=== PATIENT | male | born 1945 | race Caucasian/White ===

== ENCOUNTER 2019-11-17 10:25 | Emergency (ER) | payer MEDICARE, BC ==
--- NOTE | 2019-11-17 10:40 | EDM.PDOC ---
ED HPI GENERAL MEDICAL PROBLEM - General Chief Complaint: Neuro Symptoms/Deficits Stated Complaint: stroke Time Seen by Provider: 11/17/19 10:33 Source of Information: Reports: Patient, Family History Limitations: Reports: No Limitations - History of Present Illness INITIAL COMMENTS - FREE TEXT/NARRATIVE: Patient to the emergency department by [facility] where he was at [employer] and approximately 1015 developed left-sided facial drooping and weakness and slurred speech. Onset: Sudden Onset Date: 11/17/19 Onset Time: 10:15 Duration: Minutes: Location: Reports: Face Severity: Severe Improves with: Reports: None Worsens with: Reports: None Associated Symptoms: Reports: Weakness (left sided weakness). Denies: Confusion , Chest Pain, Cough, Fever/Chills, Headaches, Nausea/Vomiting, Seizure, Shortness of Breath Treatments FLIGHT DYNAMICIST: Reports: Other (see below) (none) - Related Data Allergies Allergy/AdvReac Type Severity Reaction Status Date / Time indomethacin [From Indocin] AdvReac Intermediate Lightheaded Verified 11/17/19 10:42 ness indomethacin sodium AdvReac Intermediate Lightheaded Verified 11/17/19 10:42 [From Indocin] ness dye Allergy Intermediate Itching Uncoded 11/17/19 10:42 Home Meds: Home Meds Simvastatin 10 mg PO BEDTIME 02/16/15 [History] Aspirin [Children's Aspirin] 81 mg PO DAILY 08/21/15 [History] Cholecalciferol (Vitamin D3) [Vitamin D3] 5,000 unit PO DAILY 08/21/15 [History] Levothyroxine Sodium [Tirosint] 112 mcg PO DAILY 08/21/15 [History] Magnesium 250 mg PO DAILY 08/21/15 [History] [place]-3 Fatty Acids [Fish Oil] 1 cap PO DAILY 08/21/15 [History] Omeprazole [Prilosec] 1 cap PO DAILY PRN 08/21/15 [History] Ubidecarenone [Coq-10] 100 mg PO DAILY 08/21/15 [History] Amitriptyline [Elavil] 25 mg PO QAM 12/28/17 [History] Ascorbic Acid [Vitamin C] 1,000 mg PO DAILY 12/28/17 [History] Clopidogrel [Plavix] 75 mg PO DAILY 12/28/17 [History] Finasteride 5 mg PO DAILY 12/28/17 [History] Lisinopril 10 mg PO BID 12/28/17 [History] Amitriptyline [Elavil] 37.5 mg PO BEDTIME 11/17/19 [History] Folic Acid 0.4 mg PO DAILY 11/17/19 [History] Meloxicam 15 mg PO DAILY 11/17/19 [History] Past Medical History HEENT History: Reports: Cataract Cardiovascular History: Reports: Hypertension Other Cardiovascular History: stent placement 10 years ago Genitourinary History: Reports: BPH Neurological History: Reports: CVA Other Neuro History: October 11, 2015. Endocrine/Metabolic History: Reports: Hypothyroidism - Past Surgical History GI Surgical History: Reports: Hernia, Inguinal Musculoskeletal Surgical History: Reports: Carpal Tunnel, Knee Replacement Social & Family History - Family History Family Medical History: Noncontributory - Living Situation & Occupation Living situation: Reports: , with Spouse Occupation: Employed ED ROS GENERAL - Review of Systems Review Of Systems: See Below Constitutional: Reports: No Symptoms, Weakness (left sided). Denies: Fever HEENT: Reports: No Symptoms. Denies: Ear Pain, Nose Pain, Throat Pain Respiratory: Reports: No Symptoms. Denies: Shortness of Breath, Cough Cardiovascular: Reports: No Symptoms. Denies: Chest Pain, Lightheadedness, Palpitations Endocrine: Denies: Fatigue, High Glucose, Low Glucose GI/Abdominal: Reports: No Symptoms. Denies: Abdominal Pain, Nausea, Vomiting : Reports: No Symptoms Musculoskeletal: Reports: No Symptoms. Denies: Neck Pain, Back Pain Skin: Reports: No Symptoms. Denies: Bruising, Rash, Erythema Neurological: Reports: Weakness (Left-sided), Change in Speech (Dysarthria), Gait Disturbance. Denies: Confusion, Dizziness, Headache, Numbness, Pre- Existing Deficit, Seizure, Syncope, Tingling Psychiatric: Reports: No Symptoms ED EXAM, NEURO - Physical Exam Exam: See Below Exam Limited By: No Limitations General Appearance: Alert, WD/WN Eye Exam: Bilateral Eye: EOMI, PERRL Ears: Normal External Exam, Normal Canal, Hearing Grossly Normal, Normal TMs Nose: Normal Inspection, Normal Mucosa Throat/Mouth: Normal Inspection, Normal Lips, Normal Gums, Normal Oropharynx, Normal Voice, No Airway Compromise Head Exam: Atraumatic, Normocephalic Neck: Normal Inspection, Supple, Non-Tender, Full Range of Motion Respiratory/Chest: No Respiratory Distress, Lungs Clear, Normal Breath Sounds, Chest Non-Tender Cardiovascular: Normal Peripheral Pulses, Regular Rate, Rhythm, No Murmur GI/Abdominal: Soft, Non-Tender Neurological: Alert, Normal Mood/Affect, Normal Gait (Stood up from the wheelchair to the bed with help without problems), No Motor/Sensory Deficits ( No change in sensation however the left side is somewhat slightly weaker than the right), Oriented x 3, Other (NIH stroke scale of 3, 1 point for left-sided facial drooping and 2 points for dysarthria) Back Exam: Normal Inspection, Full Range of Motion Extremities: Normal Inspection, Normal Range of Motion, Non-Tender, No Pedal Edema, Normal Capillary Refill, Other (no yin drift, no leg drift, normal finger to nose able to stick tongue out midline and side to side) Psychiatric: Normal Affect, Normal Mood Skin Exam: Warm, Dry, Intact, Normal Color, No Rash. No: Ecchymosis, Erythema EKG INTERPRETATION EKG Date: 11/17/19 Time: 10:42 Rhythm: NSR [place]: LAD-Left [place] Deviation P-Wave: Present QRS: RBBB ST-T: Normal QT: Normal EKG Interpretation Comments: Twelve-lead EKG shows an underlying sinus bradycardia with a ventricular rate of 59 there is a first-degree AV block with a left axis deviation and poor R wave progression there is a right bundle branch block the patient does have some nonspecific ST changes however there does not appear to be any acute injury or ischemia, there is left ventricular hypertrophy by index of Osvaldo Course - Vital Signs Text/Narrative:: 1054 patient has been evaluated in the emergency department, CT of the brain is been completed and I do not see any obvious large bleeding in the brain. The images has been sent to [facility] for immediate interpretation. I have discussed with the patient and the patient's the need to transfer and they suggest transfer to [facility]. I did call and speak to Migdalia in the transfer center she advises she will get the neurologist on the phone [phone] I have spoken to Dr. Lee the neurologist and I discussed with him the patient's chief complaint physical exam as well as all the symptoms and timeline of symptoms as well as the vital signs and blood work. He did advise that he suggest that this is a small vessel stroke and that knowing all the patient's past medical history which he has reviewed where he is managed by the neuro department including his last appointment where he seen the nurse practitioner approximately 1 month ago. I did go through the patient's list of medicine which does include Plavix and he has taken at this morning. The neurologist is advised that he is a candidate for TPA and he wanted me to go through all the risk and benefits with the family to determine whether or not this is something that they would want. He does advise that the potential disabilities will need to be taken into account as well as the risk and benefits. 1130 I have spoken to the patient and the patient's in great detail and advised them of the benefits being that the TPA would dissolve the potential clot in the brain and potentially resolve all of his current symptoms but there is no guarantee that everything would go back to complete normalcy. The risk was advised which includes massive bleeding in the brain which can cause permanent disabilities and even among a few. Also advised them that this medicine dissolves clots anywhere and if he would have any clot anywhere that this would be dissolved and he can potentially bleed from that area as well. I did advise them that this medicine has been given to patients before and there are patients that have been very well and there also has been patients that has bled into the brain and have . There was a concern on getting the medicine from the patient's as another family member had received and did have bleeding. However the patient himself advised that he wants the medicine he advised that he does not want to have the facial drooping and problems as well as he does not want to not be able to speak normally. This was a discussion between him and his and they both elected to accept the risk and benefits and receive the TPA, and discussing transport with a neurologist he advised that ground transport would be appropriate. EMS has been called and arrangements are being made for them to come to pick him up. 1151 I spoke with the trimming operator at and advised him the discussions with the neurologist and I did go through advising him that the patient does take Plavix and this was taken today as well as the discussion and the risk and benefits of giving this patient TPA and that the patient agrees to excepting all the risk and benefits and wants to have the medicine and actually discussed the actual doses of the medicine. The patient weighs 102 kg and the maximum dose is 90 mg in total and with the patient's weight the IV push would come out to 9.24 mg and the drip would be 83.2 mg and this patient will actually receive 9 mg IV push and 81 mg for the total of and maximum 90 mg/kg. At this point the patient's daughter was on the phone and I did discuss all of this with the patient's daughter and she had the same concerns as the with the family member receiving this prior however it was also discussed that this is the patient's wishes and they all have agreed to accept all the risk and benefits was given this medicine and this medicine is being administered see the nursing notes for detail. Risk and benefits of transport is been explained to the patient and the patient' s family which includes the benefit of evaluation and treatment by a neurologist and trimming operator that is not available at [facility] and the risks are worsening condition, motor vehicle accident and . Last Recorded V/S: Last Vital Signs Temp 35.8 C L 11/17/19 10:25 Pulse 57 L 11/17/19 10:25 Resp 16 11/17/19 10:25 BP 166/79 H 11/17/19 10:25 Pulse Ox - Orders/Labs/Meds Orders: Active Orders 24 hr Category Date Time Status Cardiac Monitoring [RC] . DIRECTED Care 11/17/19 10:38 Active CXR [Chest 1V Frontal] [CR] Stat Exams 11/17/19 10:42 Taken Head wo Cont [CT] Stat Exams 11/17/19 10:37 Taken Alteplase [Activase] Med 11/17/19 11:52 Once 9 mg IVPUSH .BOLUS ONE Alteplase [Activase] 81 mg Med 11/17/19 11:52 Ordered Premix Bag 1 bag IV .INFUSION Labs: Laboratory Tests 11/17/19 11/17/19 11/17/19 Range/Units 10:37 10:37 10:37 WBC 5.9 (5.0-10.0) 10^3/uL RBC 4.13 L (4.50-6.00) 10^6/uL Hgb 13.6 L (14.0-18.0) g/dL Hct 39.3 L (40.0-54.0) % MCV 95.2 H (82.0-94.0) fL MCH 32.9 H (27.0-32.0) pg MCHC 34.6 (33.0-38.0) g/dL RDW Coeff of Li 12.0 (11.0-15.0) % Plt Count 167 (150-400) 10^3/uL Neut % (Auto) 51.0 (35-85) % Lymph % (Auto) 31.2 (10-55) % Bacon % (Auto) 10.2 (0-16) % Eos % (Auto) 7.3 H (0-5) % Baso % (Auto) 0.3 (0-3) % Neut # (Auto) 2.99 (1.80-7.00) 10^3/uL Lymph # (Auto) 1.83 (1.00-4.80) 10^3/uL Bacon # (Auto) 0.60 (0.00-0.80) 10^3/uL Eos # (Auto) 0.43 (0.00-0.45) 10^3/uL Baso # (Auto) 0.02 10^3/uL PT 10.1 (9.7-12.3) SEC INR 1.00 (0.92-1.18) APTT 23.1 L (23.2-32.3) SEC Sodium 135 L (136-145) mEq/L Potassium 4.2 (3.5-5.0) mEq/L Chloride 97 L (98-106) mEq/L Carbon Dioxide 29 (21-32) mmol/L BUN 35 H (7-18) mg/dL Creatinine 1.7 H (0.7-1.3) mg/dL Est Cr Clr Drug Dosing 39.99 mL/min Estimated GFR (MDRD) 39 L (>=60) mL/min Glucose 112 H (75-99) mg/dL Calcium 9.6 (8.4-10.1) mg/dL Total Bilirubin 0.4 (0.0-1.0) mg/dL AST 17 (15-37) U/L ALT 25 (12-78) U/L Alkaline Phosphatase 85 (46-116) U/L Troponin I < 0.017 (0.00-0.06) ng/mL Total Protein 8.4 H (6.4-8.2) g/dL Albumin 4.4 (3.4-5.0) g/dL Meds: Medications Discontinued Medications Generic Name Dose Route Start Last Admin Trade Name Everette PRN Reason Stop Dose Admin Alteplase, Recombinant Confirm 11/17/19 11:26 Activase Administered 11/17/19 11:27 Dose 100 mg .ROUTE .STK-MED ONE Departure - Departure Time of Disposition: 12:23 Disposition: DC/Tfer to Acute Hospital 02 Condition: Good Clinical Impression: Acute CVA (cerebrovascular accident) - Discharge Information Forms: ED Department Discharge Critical Care Note - Critical Care Note Total Time (mins): 60 (See course notes for details) Sepsis Event Note - Focused Exam Vital Signs: Vital Signs Temp Pulse Resp BP 11/17/19 10:25 35.8 C L 57 L 16 166/79 H Date Exam was Performed: 11/17/19 Time Exam was Performed: 11:58 - Problem List & Annotations (1) Acute renal insufficiency SNOMED Code(s): 681542863 Code(s): N28.9 - DISORDER OF KIDNEY AND URETER, UNSPECIFIED Status: Acute Priority: High - Problem List Review Problem List Initiated/Reviewed/Updated: Yes - My Orders Last 24 Hours: My Active Orders 11/17/19 10:37 Head wo Cont [CT] Stat 11/17/19 10:38 Cardiac Monitoring [RC] . DIRECTED 11/17/19 10:42 CXR [Chest 1V Frontal] [CR] Stat 11/17/19 11:52 Alteplase [Activase] 9 mg IVPUSH .BOLUS ONE Alteplase [Activase] 81 mg Premix Bag 1 bag IV .INFUSION - Assessment/Plan Last 24 Hours: My Active Orders 11/17/19 10:37 Head wo Cont [CT] Stat 11/17/19 10:38 Cardiac Monitoring [RC] . DIRECTED 11/17/19 10:42 CXR [Chest 1V Frontal] [CR] Stat 11/17/19 11:52 Alteplase [Activase] 9 mg IVPUSH .BOLUS ONE Alteplase [Activase] 81 mg Premix Bag 1 bag IV .INFUSION Plan: As above Patient's past medical history, past surgical history, past family medical history, past social history is all been reviewed see nursing notes for details
[2019-11-17 10:55] LABS: CHLORIDE,CL 97 mEq/L (98-106); SODIUM,NA 135 mEq/L (136-145)
[2019-11-17 10:57] VITALS: BP 166/79; PULSE 57
[2019-11-17 11:24] LABS: PTT,PARTIAL THROMBOPLSTIN TIME 23.1 SEC (23.2-32.3)
[2019-11-17] MEDS ORDERED: Sodium Chloride 0.9% 1,000 ML ONE (11:42)
[2019-11-17] MEDS ORDERED: Alteplase 81 MG in Premix Bag 1 BAG IV ONE (11:52)
[2019-11-17] MEDS ORDERED: Sodium Chloride 0.9% 1,000 ML IV SCH (12:15)
== END 2019-11-17 12:40 ==
LOC: CC.ED 10:25
DX: I63.9 Cerebral infarction, unspecified (principal); I10 Essential (primary) hypertension; E03.9 Hypothyroidism, unspecified; I45.10 Unspecified right bundle-branch block; Z88.6 Allergy status to analgesic agent; Z91.048 Other nonmedicinal substance allergy status; Z79.82 Long term (current) use of aspirin; Z79.02 Long term (current) use of antithrombotics/antiplatelets; Z79.899 Other long term (current) drug therapy
CPT/HCPCS: 36415; 37195; 70450; 71045; 80053; 84484; 85025; 85610; 85730; 93005; 93010; 99291; 99291-25; J2997; J7030

== ENCOUNTER 2020-03-24 10:31 | Inpatient (IN) | payer MEDICARE, BC ==
[2020-03-24] MEDS ORDERED: fentaNYL 100 MCG/2 ML SDV IVPUSH PRN (14:04)
[2020-03-24] MEDS ORDERED: OMEPRAZOLE PO PRN (14:04)
[2020-03-24] MEDS ORDERED: Sodium Chloride 0.9% 10 ML Syringe FLUSH PRN (14:06)
[2020-03-24] MEDS ORDERED: Acetaminophen 325 MG Tab PO PRN (14:06)
--- NOTE | 2020-03-24 14:15 | EDM.PDOC ---
ED HPI GENERAL MEDICAL PROBLEM - General Chief Complaint: General Stated Complaint: fall Time Seen by Provider: 03/24/20 10:45 Source of Information: Reports: Patient, EMS, Family () History Limitations: Reports: No Limitations - History of Present Illness INITIAL COMMENTS - FREE TEXT/NARRATIVE: Rich is a 74 yo male who presents to the ED via [facility] after sustaini ng a fall at home. He states his was unable to help him up and she had called EMS. EMS stated upon their arrival Rich was disoriented, demonstrated left sided weakness. admitted to EMS crew Rich was incoherent after the fall. EMS did place c-collar. Rich denies any cervical pain. States he has discomfort in the left shoulder and midback area. He admits he was putting on his shoes when he tripped as he usually has help with it. He admits to having left sided weakness from prior strokes with last one being in the spring of this year. Admits pain is a 7 out of 10 presently. Nurse did call who stated that the slurred speech, disorientation to year and numbers and left sided weakness are all from previous CVAs. She states he has been seeing speech therapy as well. She admits he will often lose his balance when trying to put his shoes on; hence why she usually helps him. He denies any head trauma. Treatments [employer]ILY [employer]ICE CASE[employer]: Reports: Cervical Collar Left Shoulder Pain Score (Numeric/FACES): 4 - Related Data Allergies Allergy/AdvReac Type Severity Reaction Status Date / Time indomethacin [From Indocin] AdvReac Intermediate Lightheaded Verified 03/24/20 11:44 ness indomethacin sodium AdvReac Intermediate Lightheaded Verified 03/24/20 11:44 [From Indocin] ness dye Allergy Intermediate Itching Uncoded 03/24/20 11:44 Home Meds: Home Meds Simvastatin 10 mg PO BEDTIME 02/16/15 [History] Cholecalciferol (Vitamin D3) [Vitamin D3] 5,000 unit PO DAILY 08/21/15 [History] Levothyroxine Sodium [Tirosint] 112 mcg PO DAILY 08/21/15 [History] [place]-3 Fatty Acids [Fish Oil] 1 cap PO DAILY 08/21/15 [History] Omeprazole [Prilosec] 1 cap PO DAILY PRN 08/21/15 [History] Ubidecarenone [Coq-10] 100 mg PO DAILY 08/21/15 [History] Amitriptyline [Elavil] 25 mg PO QAM 12/28/17 [History] Ascorbic Acid [Vitamin C] 1,000 mg PO DAILY 12/28/17 [History] Clopidogrel [Plavix] 75 mg PO DAILY 12/28/17 [History] Lisinopril 10 mg PO BID 12/28/17 [History] Amitriptyline [Elavil] 37.5 mg PO BEDTIME 11/17/19 [History] Folic Acid 0.4 mg PO DAILY 11/17/19 [History] Meloxicam 15 mg PO DAILY 11/17/19 [History] Magnesium Oxide 250 mg PO DAILY 03/24/20 [History] Past Medical History HEENT History: Reports: Cataract Cardiovascular History: Reports: Hypertension Other Cardiovascular History: stent placement 10 years ago Genitourinary History: Reports: BPH Musculoskeletal History: Reports: Other (See Below) Other Musculoskeletal History: 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 Neurological History: Reports: CVA Other Neuro History: x2...October 11, 2015, 12/2019 Endocrine/Metabolic History: Reports: Hypothyroidism - Past Surgical History GI Surgical History: Reports: Hernia, Inguinal Musculoskeletal Surgical History: Reports: Carpal Tunnel, Knee Replacement Social & Family History - Family History Family Medical History: Noncontributory - Tobacco Use Smoking Status *Q: Never Smoker - Caffeine Use Caffeine Use: Reports: Coffee - Recreational Drug Use Recreational Drug Use: No - Living Situation & Occupation Living situation: Reports: , with Spouse Occupation: Employed ED ROS GENERAL - Review of Systems Review Of Systems: See Below Constitutional: Reports: No Symptoms HEENT: Reports: No Symptoms Respiratory: Reports: No Symptoms Cardiovascular: Reports: No Symptoms GI/Abdominal: Reports: No Symptoms : Reports: No Symptoms Musculoskeletal: Reports: Arm Pain, Back Pain, Leg Pain, Other (See HPI) Skin: Reports: No Symptoms Neurological: Reports: Pre-Existing Deficit. Denies: Headache, Weakness, Change in Speech Psychiatric: Reports: No Symptoms ED EXAM, GENERAL - Physical Exam Exam: See Below Exam Limited By: No Limitations General Appearance: Alert, WD/WN, No Apparent Distress Eye Exam: Bilateral Eye: Normal Inspection, PERRL Ears: Normal External Exam, Hearing Grossly Normal Nose: Normal Inspection, Normal Mucosa, No Blood Throat/Mouth: Normal Inspection, Normal Lips, Normal Gums, Normal Oropharynx, Normal Voice, No Airway Compromise Head: Atraumatic, Normocephalic Neck: Normal Inspection, Supple, Full Range of Motion. No: Tender Lateral, Tender Midline Respiratory/Chest: No Respiratory Distress, Lungs Clear, Normal Breath Sounds, No Accessory Muscle Use Cardiovascular: Regular Rate, Rhythm, No Edema, Systolic Murmur Back Exam: Paraspinal Tenderness, Vertebral Tenderness (mid-thoracic tenderness noted with palpation). No: CVA Tenderness (L), CVA Tenderness (R) Extremities: Arm Pain (left shoulder pain with palpation. ), Leg Pain (left knee pain) Neurological: Alert, Oriented, Normal Cognition, No Motor/Sensory Deficits Psychiatric: Normal Affect, Normal Mood Skin Exam: Warm, Dry, Intact. No: Ecchymosis, Wound/Incision Course - Vital Signs Last Recorded V/S: Last Vital Signs Temp 97.4 F 03/24/20 12:21 Pulse 86 03/24/20 12:21 Resp 18 03/24/20 12:21 BP 129/72 03/24/20 12:21 Pulse Ox 95 03/24/20 12:21 - Orders/Labs/Meds Orders: Active Orders 24 hr Category Date Time Status Cervical Spine wo Cont [CT] Stat Exams 03/24/20 10:40 Taken Head wo Cont [CT] Stat Exams 03/24/20 10:30 Taken Knee 3V Lt [CR] Routine Exams 03/24/20 Taken Shoulder Comp Lt [CR] Routine Exams 03/24/20 Taken Thoracic Spine wo Cont [CT] Stat Exams 03/24/20 10:40 Taken Medication Orders Acetaminophen (Tylenol) 650 mg PO Q4H PRN PRN Reason: Pain (Mild 1-3)/fever Amitriptyline HCl (Elavil) 25 mg PO QAM [facility] Amitriptyline HCl (Elavil) 37.5 mg PO BEDTIME [facility] Clopidogrel Bisulfate (Plavix) 75 mg PO DAILY [facility] Fentanyl (Sublimaze) 25 mcg IVPUSH BID [facility] Folic Acid (Folic Acid) 0.5 mg PO DAILY [facility] Levothyroxine Sodium (Levothyroxine) 112 mcg PO ACBREAKFAST [facility] Lisinopril (Prinivil) 10 mg PO BID [facility] Magnesium Oxide (Magnesium Oxide) 250 mg PO DAILY [facility] Meloxicam (Mobic) 15 mg PO DAILY [facility] Oxycodone/Acetaminophen (Percocet 325-5 Mg) 1 tab PO Q4H PRN PRN Reason: Pain (moderate 4-6) Last Admin: 03/24/20 15:11 Dose: 1 tab Documented by: EARL Pantoprazole Sodium (Protonix) 40 mg PO DAILY@0730 PRN PRN Reason: Indigestion Simvastatin (Zocor) 10 mg PO BEDTIME [facility] Sodium Chloride (Saline Flush) 10 ml FLUSH ASDIRECTED PRN PRN Reason: Keep Vein Open Meds: Medications Generic Name Dose Route Start Last Admin Trade Name Freq PRN Reason Stop Dose Admin Acetaminophen 650 mg 03/24/20 14:06 Tylenol PO Q4H PRN Pain (Mild 1-3)/fever Amitriptyline HCl 25 mg 03/25/20 08:00 Elavil PO QAM [facility] Amitriptyline HCl 37.5 mg 03/24/20 20:00 Elavil PO BEDTIME [facility] Clopidogrel Bisulfate 75 mg 03/25/20 08:00 Plavix PO DAILY [facility] Fentanyl 25 mcg 03/24/20 20:00 Sublimaze IVPUSH BID [facility] Folic Acid 0.5 mg 03/25/20 08:00 Folic Acid PO DAILY [facility] Levothyroxine Sodium 112 mcg 03/25/20 07:00 Levothyroxine PO ACBREAKFAST [facility] Lisinopril 10 mg 03/24/20 20:00 Prinivil PO BID [facility] Magnesium Oxide 250 mg 03/25/20 08:00 Magnesium Oxide PO DAILY [facility] Meloxicam 15 mg 03/25/20 08:00 Mobic PO DAILY [facility] Oxycodone/Acetaminophen 1 tab 03/24/20 14:06 03/24/20 15:11 Percocet 325-5 Mg PO 1 tab Q4H PRN Administration Pain (moderate 4-6) Pantoprazole Sodium 40 mg 03/25/20 07:30 Protonix PO DAILY@0730 PRN Indigestion Simvastatin 10 mg 03/24/20 20:00 Zocor PO BEDTIME [facility] Sodium Chloride 10 ml 03/24/20 14:06 Saline Flush FLUSH ASDIRECTED PRN Keep Vein Open Discontinued Medications Generic Name Dose Route Start Last Admin Trade Name Freq PRN Reason Stop Dose Admin Fentanyl 25 mcg 03/24/20 14:04 Sublimaze IVPUSH Q6H PRN Pain Iopamidol 100 ml 03/24/20 14:27 03/24/20 15:30 Isovue-370 (76%) IVPUSH 03/24/20 14:28 Not Given ONETIME ONE Non-Formulary Medication 1 cap 03/24/20 14:04 Omeprazole [Prilosec] PO DAILY PRN Indigestion Pantoprazole Sodium 40 mg 03/24/20 15:00 Protonix PO DAILY@0730 PRN Indigestion Departure - Departure Time of Disposition: 12:15 Disposition: Admitted As Inpatient 65 Clinical Impression: Compression fracture of T6 vertebra Qualifiers: Encounter type: initial encounter Qualified Code(s): S22.050A - Wedge compression fracture of T5-T6 vertebra, initial encounter for closed fracture - Discharge Information Sepsis Event Note (ED) - Evaluation Sepsis Screening Result: No Definite Risk - Focused Exam Vital Signs: Vital Signs Temp Pulse Resp BP Pulse Ox 03/24/20 12:21 97.4 F 86 18 129/72 95 03/24/20 11:30 138/93 H 03/24/20 10:39 98.4 F 85 20 158/96 H 95 - Problem List & Annotations (1) Compression fracture of T6 vertebra SNOMED Code(s): 261656263 Code(s): S22.050A - WEDGE COMPRESSION FRACTURE OF T5-T6 VERTEBRA, INIT Status: Acute Current Visit: Yes Qualifiers: Encounter type: initial encounter Qualified Code(s): S22.050A - Wedge compression fracture of T5-T6 vertebra, initial encounter for closed fracture (2) Lung nodule seen on imaging study SNOMED Code(s): 361010292, 740008209 Code(s): R91.1 - SOLITARY PULMONARY NODULE Status: Acute Current Visit: Yes - My Orders Last 24 Hours: My Active Orders 03/24/20 Knee 3V Lt [CR] Routine Shoulder Comp Lt [CR] Routine 03/24/20 10:30 Head wo Cont [CT] Stat 03/24/20 10:40 Cervical Spine wo Cont [CT] Stat Thoracic Spine wo Cont [CT] Stat - Assessment/Plan Admission H&P: Please use this note as an admission H&P Last 24 Hours: My Active Orders 09/22/20 Knee 3V Lt [CR] Routine Shoulder Comp Lt [CR] Routine 03/24/20 10:30 Head wo Cont [CT] Stat 03/24/20 10:40 Cervical Spine wo Cont [CT] Stat Thoracic Spine wo Cont [CT] Stat Plan: CT head and cervical spine did not show any acute intracranial or cervical abnormalities. CT of the thoracic spine did show an acute T6 compression fracture. Radiologist recommendation to have MRI of the thoracic spine with concerns of possible other acute compression fractures with osteopenic vertebra. Incidental right lung nodule noted and advised further evaluation via CT chest with contrast. Consulted with Dr. Harris and will admit to his services under acute care. PT to evaluate patient. Will give IV pain medication for pain control as Rich has moderate amount of pain presently.
[2020-03-24] MEDS ORDERED: Iopamidol 755 Mg/ML 100 ML Bottle IVPUSH ONE (14:27)
[2020-03-24] MEDS ORDERED: Pantoprazole 40 MG Tab.CR PO PRN (15:00)
[2020-03-24] MEDS: Acetaminophen/oxyCODONE 325-5 MG Tab PO PRN (15:11)
[2020-03-24] MEDS: Amitriptyline 25 MG Tab PO SCH (19:42)
[2020-03-24] MEDS: Simvastatin 10 MG Tab PO SCH (19:42)
[2020-03-24] MEDS: Lisinopril 10 MG Tab PO SCH (19:42)
[2020-03-24] MEDS: fentaNYL 100 MCG/2 ML SDV IVPUSH SCH (19:43)
[2020-03-25] MEDS: Acetaminophen/oxyCODONE 325-5 MG Tab PO PRN ×4 (01:00→23:44)
[2020-03-25] MEDS: Levothyroxine 112 MCG Tab PO SCH (06:30)
[2020-03-25] MEDS ORDERED: Pantoprazole 40 MG Tab.CR PO PRN (07:30)
[2020-03-25] MEDS: Meloxicam 7.5 MG Tab PO SCH (07:49)
[2020-03-25] MEDS: Amitriptyline 25 MG Tab PO SCH ×2 (07:50→19:31)
[2020-03-25] MEDS: Clopidogrel 75 MG Tab PO SCH (07:50)
[2020-03-25] MEDS: Lisinopril 10 MG Tab PO SCH ×2 (07:51→19:32)
[2020-03-25] MEDS: fentaNYL 100 MCG/2 ML SDV IVPUSH SCH ×2 (07:51→19:30)
[2020-03-25] MEDS: Folic Acid 1 MG Tab PO SCH (07:51)
--- NOTE | 2020-03-25 09:16 | PCM.PN ---
- General Info Date of Service: 03/25/20 Admission Dx/Problem (Free Text): Compression Fracture of T6 Functional Status: Reports: Pain Controlled, Tolerating Diet, Ambulating (transfers from bed to chair) - Review of Systems General: Reports: Weakness (history of CVA with left side weakness) HEENT: Reports: No Symptoms Pulmonary: Reports: Shortness of Breath. Denies: Cough Cardiovascular: Reports: Edema. Denies: Chest Pain, Lightheadedness Gastrointestinal: Reports: Decreased Appetite. Denies: Abdominal Pain, Nausea, Vomiting Genitourinary: Reports: No Symptoms Musculoskeletal: Reports: Back Pain Skin: Reports: No Symptoms Neurological: Reports: Pre-Existing Deficit, Weakness - Patient Data Vitals - Most Recent: Last Vital Signs Temp 96.9 F 03/25/20 07:48 Pulse 62 03/25/20 07:48 Resp 16 03/25/20 07:48 BP 111/68 03/25/20 07:51 Pulse Ox 96 03/25/20 07:48 Weight - Most Recent: 229 lb 8 oz Lab Results Last 24 Hours: Laboratory Results - last 24 hr 03/24/20 03/24/20 Range/Units 15:00 15:00 WBC 12.1 H (5.0-10.0) 10^3/uL RBC 3.57 L (4.50-6.00) 10^6/uL Hgb 11.5 L (14.0-18.0) g/dL Hct 33.8 L (40.0-54.0) % MCV 94.7 H (82.0-94.0) fL MCH 32.2 H (27.0-32.0) pg MCHC 34.0 (33.0-38.0) g/dL RDW Coeff of Li 13.5 (11.0-15.0) % Plt Count 189 (150-400) 10^3/uL Neut % (Auto) 76.9 (35-85) % Lymph % (Auto) 13.1 (10-55) % Sunflower % (Auto) 8.4 (0-16) % Eos % (Auto) 1.4 (0-5) % Baso % (Auto) 0.2 (0-3) % Neut # (Auto) 9.29 H (1.80-7.00) 10^3/uL Lymph # (Auto) 1.58 (1.00-4.80) 10^3/uL Sunflower # (Auto) 1.01 H (0.00-0.80) 10^3/uL Eos # (Auto) 0.17 (0.00-0.45) 10^3/uL Baso # (Auto) 0.02 10^3/uL Sodium 132 L (136-145) mEq/L Potassium 4.5 (3.5-5.0) mEq/L Chloride 98 (98-106) mEq/L Carbon Dioxide 28 (21-32) mmol/L BUN 27 H (7-18) mg/dL Creatinine 1.7 H (0.7-1.3) mg/dL Est Cr Clr Drug Dosing 41.21 mL/min Estimated GFR (MDRD) 39 L (>=60) mL/min Glucose 148 H D (75-99) mg/dL Calcium 9.4 (8.4-10.1) mg/dL Med Orders - Current: Current Medications Acetaminophen (Tylenol) 650 mg PO Q4H PRN PRN Reason: Pain (Mild 1-3)/fever Amitriptyline HCl (Elavil) 25 mg PO QAM [facility] Last Admin: 03/25/20 07:50 Dose: 25 mg Documented by: Amitriptyline HCl (Elavil) 37.5 mg PO BEDTIME [facility] Last Admin: 03/24/20 19:42 Dose: 37.5 mg Documented by: Clopidogrel Bisulfate (Plavix) 75 mg PO DAILY [facility] Last Admin: 03/25/20 07:50 Dose: 75 mg Documented by: Enoxaparin Sodium (Lovenox) 40 mg SUBCUT Q24H [facility] Fentanyl (Sublimaze) 25 mcg IVPUSH BID [facility] Last Admin: 03/25/20 07:51 Dose: 25 mcg Documented by: Folic Acid (Folic Acid) 0.5 mg PO DAILY [facility] Last Admin: 03/25/20 07:51 Dose: 0.5 mg Documented by: Levothyroxine Sodium (Levothyroxine) 112 mcg PO ACBREAKFAST [facility] Last Admin: 03/25/20 06:30 Dose: 112 mcg Documented by: Lisinopril (Prinivil) 10 mg PO BID [facility] Last Admin: 03/25/20 07:51 Dose: 10 mg Documented by: Magnesium Oxide (Magnesium Oxide) 250 mg PO DAILY [facility] Last Admin: 03/25/20 07:49 Dose: 250 mg Documented by: Meloxicam (Mobic) 15 mg PO DAILY [facility] Last Admin: 03/25/20 07:49 Dose: 15 mg Documented by: Oxycodone/Acetaminophen (Percocet 325-5 Mg) 1 tab PO Q4H PRN PRN Reason: Pain (moderate 4-6) Last Admin: 03/25/20 09:00 Dose: 1 tab Documented by: Pantoprazole Sodium (Protonix) 40 mg PO DAILY@0730 PRN PRN Reason: Indigestion Simvastatin (Zocor) 10 mg PO BEDTIME [facility] Last Admin: 03/24/20 19:42 Dose: 10 mg Documented by: Sodium Chloride (Saline Flush) 10 ml FLUSH ASDIRECTED PRN PRN Reason: Keep Vein Open Discontinued Medications Fentanyl (Sublimaze) 25 mcg IVPUSH Q6H PRN PRN Reason: Pain Iopamidol (Isovue-370 (76%)) 100 ml IVPUSH ONETIME ONE Stop: 03/24/20 14:28 Last Admin: 03/24/20 15:30 Dose: Not Given Documented by: Non-Formulary Medication (Omeprazole [Prilosec]) 1 cap PO DAILY PRN PRN Reason: Indigestion Pantoprazole Sodium (Protonix) 40 mg PO DAILY@0730 PRN PRN Reason: Indigestion - Exam General: Alert, Oriented HEENT: Mucous Membr. Moist/Staves Neck: Supple Lungs: Clear to Auscultation, Normal Respiratory Effort Cardiovascular: Regular Rate, Regular Rhythm GI/Abdominal Exam: Normal Bowel Sounds, Soft, Non-Tender Extremities: Normal Inspection, Pedal Edema (trace edema) Skin: Warm, Dry Neurological: No New Focal Deficit Sepsis Event Note - Evaluation Sepsis Screening Result: No Definite Risk - Focused Exam Vital Signs: Vital Signs Temp Pulse Resp BP BP Pulse Ox 03/25/20 07:51 111/68 03/25/20 07:48 96.9 F 62 16 111/68 96 03/25/20 04:00 97.9 F 67 16 106/67 92 L 03/25/20 00:00 97.7 F 69 16 101/66 91 L - Problem List & Annotations (1) Compression fracture of T6 vertebra SNOMED Code(s): 271355420 Code(s): S22.050A - WEDGE COMPRESSION FRACTURE OF T5-T6 VERTEBRA, INIT Status: Acute Priority: High Current Visit: Yes Qualifiers: Encounter type: initial encounter Qualified Code(s): S22.050A - Wedge compression fracture of T5-T6 vertebra, initial encounter for closed fracture (2) Lung nodule seen on imaging study SNOMED Code(s): 237498817, 452446834 Code(s): R91.1 - SOLITARY PULMONARY NODULE Status: Acute Priority: High Current Visit: Yes - Problem List Review Problem List Initiated/Reviewed/Updated: Yes - Assessment Assessment:: T6 Compression Fracture Lung nodule seen on imaging - Plan Plan:: Patient doing well today. States pain at a 2 while at rest. Does have history of left side weakness from previous CVA. Denies shortness of breath, chest pain. Admits to edema at times, trace noted today. Vital signs are stable. L abs stable on admission. Will continue with pain control, MRI on Monday and PT.
[2020-03-25] MEDS: Enoxaparin 40 MG/0.4 ML Syringe SUBCUT SCH (12:57)
[2020-03-25] MEDS: Simvastatin 10 MG Tab PO SCH (19:32)
[2020-03-26] MEDS: Levothyroxine 112 MCG Tab PO SCH (06:26)
[2020-03-26] MEDS: Amitriptyline 25 MG Tab PO SCH ×2 (08:12→19:26)
[2020-03-26] MEDS: Meloxicam 7.5 MG Tab PO SCH (08:12)
[2020-03-26] MEDS: Clopidogrel 75 MG Tab PO SCH (08:12)
[2020-03-26] MEDS: Lisinopril 10 MG Tab PO SCH ×2 (08:13→19:29)
[2020-03-26] MEDS: Folic Acid 1 MG Tab PO SCH (08:13)
[2020-03-26] MEDS: fentaNYL 100 MCG/2 ML SDV IVPUSH SCH ×2 (08:14→19:31)
--- NOTE | 2020-03-26 08:25 | PCM.PN ---
- General Info Date of Service: 03/26/20 Admission Dx/Problem (Free Text): Compression Fracture of T6 Functional Status: Reports: Pain Controlled (taking percocet every 6 hours), Tolerating Diet, Ambulating (transfers to chair) - Review of Systems General: Reports: Weakness HEENT: Reports: No Symptoms Pulmonary: Denies: Shortness of Breath, Cough Cardiovascular: Reports: Edema. Denies: Chest Pain, Lightheadedness Gastrointestinal: Denies: Abdominal Pain, Decreased Appetite, Nausea, Vomiting Genitourinary: Reports: No Symptoms Musculoskeletal: Reports: Shoulder Pain, Back Pain Skin: Reports: No Symptoms Neurological: Reports: Pre-Existing Deficit, Weakness Psychiatric: Reports: No Symptoms - Patient Data Vitals - Most Recent: Last Vital Signs Temp 97.7 F 03/26/20 03:44 Pulse 65 03/26/20 03:44 Resp 18 03/26/20 03:44 BP 103/63 03/26/20 03:44 Pulse Ox 95 03/26/20 03:44 Weight - Most Recent: 229 lb 8 oz Med Orders - Current: Current Medications Acetaminophen (Tylenol) 650 mg PO Q4H PRN PRN Reason: Pain (Mild 1-3)/fever Amitriptyline HCl (Elavil) 25 mg PO QAM [facility] Last Admin: 03/25/20 07:50 Dose: 25 mg Documented by: Amitriptyline HCl (Elavil) 37.5 mg PO BEDTIME [facility] Last Admin: 03/25/20 19:31 Dose: 37.5 mg Documented by: Clopidogrel Bisulfate (Plavix) 75 mg PO DAILY [facility] Last Admin: 03/25/20 07:50 Dose: 75 mg Documented by: Enoxaparin Sodium (Lovenox) 40 mg SUBCUT Q24H [facility] Last Admin: 03/25/20 12:57 Dose: 40 mg Documented by: Fentanyl (Sublimaze) 25 mcg IVPUSH BID [facility] Last Admin: 03/25/20 19:30 Dose: 25 mcg Documented by: Folic Acid (Folic Acid) 0.5 mg PO DAILY [facility] Last Admin: 03/25/20 07:51 Dose: 0.5 mg Documented by: Levothyroxine Sodium (Levothyroxine) 112 mcg PO ACBREAKFAST [facility] Last Admin: 03/26/20 06:26 Dose: 112 mcg Documented by: Lisinopril (Prinivil) 10 mg PO BID [facility] Last Admin: 03/25/20 19:32 Dose: 10 mg Documented by: Magnesium Oxide (Magnesium Oxide) 250 mg PO DAILY [facility] Last Admin: 03/25/20 07:49 Dose: 250 mg Documented by: Meloxicam (Mobic) 15 mg PO DAILY [facility] Last Admin: 03/25/20 07:49 Dose: 15 mg Documented by: Oxycodone/Acetaminophen (Percocet 325-5 Mg) 1 tab PO Q4H PRN PRN Reason: Pain (moderate 4-6) Last Admin: 03/25/20 23:44 Dose: 1 tab Documented by: Pantoprazole Sodium (Protonix) 40 mg PO DAILY@0730 PRN PRN Reason: Indigestion Simvastatin (Zocor) 10 mg PO BEDTIME [facility] Last Admin: 03/25/20 19:32 Dose: 10 mg Documented by: Sodium Chloride (Saline Flush) 10 ml FLUSH ASDIRECTED PRN PRN Reason: Keep Vein Open Discontinued Medications Fentanyl (Sublimaze) 25 mcg IVPUSH Q6H PRN PRN Reason: Pain Iopamidol (Isovue-370 (76%)) 100 ml IVPUSH ONETIME ONE Stop: 03/24/20 14:28 Last Admin: 03/24/20 15:30 Dose: Not Given Documented by: Non-Formulary Medication (Omeprazole [Prilosec]) 1 cap PO DAILY PRN PRN Reason: Indigestion Pantoprazole Sodium (Protonix) 40 mg PO DAILY@0730 PRN PRN Reason: Indigestion - Exam General: Alert, Oriented HEENT: Mucous Membr. Moist/Oracle Neck: Supple Lungs: Clear to Auscultation, Normal Respiratory Effort Cardiovascular: Regular Rate, Regular Rhythm GI/Abdominal Exam: Normal Bowel Sounds, Soft, Non-Tender Back Exam: Normal Inspection, Vertebral Tenderness Extremities: Normal Inspection, Pedal Edema (trace) Skin: Warm, Dry Neurological: No New Focal Deficit Sepsis Event Note - Evaluation Sepsis Screening Result: No Definite Risk - Focused Exam Vital Signs: Vital Signs Temp Pulse Resp BP Pulse Ox 03/26/20 03:44 97.7 F 65 18 103/63 95 03/26/20 00:00 97.1 F 68 20 123/64 94 L - Problem List & Annotations (1) Compression fracture of T6 vertebra SNOMED Code(s): 866066039 Code(s): S22.050A - WEDGE COMPRESSION FRACTURE OF T5-T6 VERTEBRA, INIT Status: Acute Priority: High Current Visit: Yes Qualifiers: Encounter type: initial encounter Qualified Code(s): S22.050A - Wedge compression fracture of T5-T6 vertebra, initial encounter for closed fracture (2) Lung nodule seen on imaging study SNOMED Code(s): 026491633, 870926863 Code(s): R91.1 - SOLITARY PULMONARY NODULE Status: Acute Priority: High Current Visit: Yes - Problem List Review Problem List Initiated/Reviewed/Updated: Yes - Assessment Assessment:: T6 Compression Fracture Lung nodule seen on imaging - Plan Plan:: Patient doing well today. States pain at a 2 while at rest. Does have history of left side weakness from previous CVA. Denies shortness of breath, chest pain. Admits to edema at times, trace noted today. Vital signs are stable. Labs stable on admission. Will continue with pain control, MRI on Monday and PT. 03-26-2020 Patient stable. Rates pain at present at a 3.5. States having more pain in his left shoulder today. Mild back pain. No shortness of breath. Denies abdominal pain. Vitals are stable. Transfers with one assist to chair. Continue with pain control. Plan for MRI tomorrow. PT.
[2020-03-26] MEDS: Enoxaparin 40 MG/0.4 ML Syringe SUBCUT SCH (12:45)
[2020-03-26] MEDS: Acetaminophen/oxyCODONE 325-5 MG Tab PO PRN (17:08)
[2020-03-26] MEDS: Simvastatin 10 MG Tab PO SCH (19:29)
[2020-03-27] MEDS: Acetaminophen/oxyCODONE 325-5 MG Tab PO PRN (00:12)
[2020-03-27] MEDS: Levothyroxine 112 MCG Tab PO SCH (06:18)
[2020-03-27 08:01] VITALS: BP 122/68; PULSE 74
[2020-03-27] MEDS: Meloxicam 7.5 MG Tab PO SCH (08:05)
[2020-03-27] MEDS: Folic Acid 1 MG Tab PO SCH (08:05)
[2020-03-27] MEDS: Amitriptyline 25 MG Tab PO SCH (08:06)
[2020-03-27] MEDS: Lisinopril 10 MG Tab PO SCH (08:06)
[2020-03-27] MEDS: Clopidogrel 75 MG Tab PO SCH (08:06)
[2020-03-27] MEDS: fentaNYL 100 MCG/2 ML SDV IVPUSH SCH (09:33)
[2020-03-27] MEDS ORDERED: Celecoxib 100 MG Cap PO SCH (17:30)
[2020-03-27] MEDS ORDERED: Cyclobenzaprine 10 MG Tab PO SCH (20:00)
--- NOTE | 2020-03-28 00:16 | DISCH ---
DISPOSITION: Transfer to swing bed care. HISTORY: Rich is a 74-year-old gentleman who sustained a fall on the , in which the EMS had to help with getting the patient back up on his feet. He does have a history of prior stroke with deficits to the left upper extremity and lower with more residual symptoms in the left upper extremity. He was unable to get himself up secondary to the left-sided weakness. He had been complaining of left shoulder and mid back pain upon arrival. CT of the thoracic spine showed a T6 compression fracture. Incidentally, there was a right lung nodule noted. 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 HOSPITAL STAY: The patient has been doing quite well during his hospital stay, is still complaining of some left shoulder pain. He has been getting IV fentanyl at 25 b.i.d. along with meloxicam 15 mg daily. Back discomfort has improved. We were going to go ahead and get an MRI of the thoracic spine; however, we were unable to secondary to hardware within the chest. Physical Therapy has been working with the patient for strengthening and conditioning as well. The patient was put into an arm sling, which does give him little bit of relief in his left shoulder pain. LABORATORY WORK: On admission, white blood count was 12,100, hemoglobin 11.5, sodium of 132, creatinine 1.7. Laboratory work is pending for today. RADIOLOGY/IMAGING: Left shoulder did not show any signs of any fractures. Left knee showed postoperative change; however, no loosening of the prosthesis. No fractures are noted. Again, CT of the chest did show concerning findings of a lung mass in the right upper lobe. CT of the head was negative. CT of the cervical spine was negative. DISCHARGE DIAGNOSIS: 1. T6 COMPRESSION FRACTURE. 2. CONCERNING NODULE, RIGHT UPPER LOBE. ADMISSION DIAGNOSES: 1. T6 compression fracture. 2. Concerning nodule, right upper lobe. Again, discharge disposition will be transfer to swing bed care at this time. Please use discharge summary for swing bed H and P. [place]/MAURI /[id number] KELY
== END 2020-03-27 09:39 | disposition swing bed (61) | DRG 552 ==
LOC: CC.ED 10:31 → UNDOADMOB 12:12 → CC.MS 12:12 → INTOOBSV 12:12 → OBSVTOIN 12:12 → CC.MS 13:54 → OBSVTOIN 13:54
PROVIDERS: ADMIT Physician Assistant Medical; ATTEND Family Medicine
DX: S22.050A Wedge compression fracture of T5-T6 vertebra, initial encounter for closed fracture (principal); R91.1 Solitary pulmonary nodule; W19.XXXA Unspecified fall, initial encounter; I10 Essential (primary) hypertension; Z95.5 Presence of coronary angioplasty implant and graft; N40.0 Benign prostatic hyperplasia without lower urinary tract symptoms; I69.354 Hemiplegia and hemiparesis following cerebral infarction affecting left non-dominant side; Z91.041 Radiographic dye allergy status; E03.9 Hypothyroidism, unspecified; Z88.8 Allergy status to other drugs, medicaments and biological substances; Z79.02 Long term (current) use of antithrombotics/antiplatelets; Y92.009 Unspecified place in unspecified non-institutional (private) residence as the place of occurrence of the external cause; Z79.890 Hormone replacement therapy; Z79.899 Other long term (current) drug therapy
CPT/HCPCS: 36415; 70450; 71250; 72125; 72128; 73030-LT; 73560-LT; 73562-LT; 80048; 85025; 97110-GP; 97161-GP; 99285-25; A9270-GY; G0283-GP; J1650; J3010

== ENCOUNTER 2020-03-27 09:32 | Inpatient (IN) | payer MEDICARE, BC ==
[2020-03-27] MEDS ORDERED: Sodium Chloride 0.9% 10 ML Syringe FLUSH PRN ×2 (09:52)
[2020-03-27] MEDS: Enoxaparin 40 MG/0.4 ML Syringe SUBCUT SCH (11:45)
[2020-03-27] MEDS: Acetaminophen/oxyCODONE 325-5 MG Tab PO PRN (12:59)
[2020-03-27] MEDS: Celecoxib 100 MG Cap PO SCH (17:22)
[2020-03-27] MEDS: Amitriptyline 25 MG Tab PO SCH (19:36)
[2020-03-27] MEDS: Cyclobenzaprine 10 MG Tab PO SCH (19:39)
[2020-03-27] MEDS: Lisinopril 10 MG Tab PO SCH (19:40)
[2020-03-27] MEDS: fentaNYL 100 MCG/2 ML SDV IVPUSH SCH (19:40)
[2020-03-27] MEDS: Simvastatin 10 MG Tab PO SCH (19:40)
[2020-03-28] MEDS: Levothyroxine 112 MCG Tab PO SCH (06:53)
[2020-03-28] MEDS ORDERED: Pantoprazole 40 MG Tab.CR PO PRN (07:30)
[2020-03-28] MEDS: fentaNYL 100 MCG/2 ML SDV IVPUSH SCH ×2 (07:31→19:03)
[2020-03-28] MEDS: Cyclobenzaprine 10 MG Tab PO SCH ×2 (07:33→19:04)
[2020-03-28] MEDS: Amitriptyline 25 MG Tab PO SCH ×2 (07:33→19:03)
[2020-03-28] MEDS: Clopidogrel 75 MG Tab PO SCH (07:33)
[2020-03-28] MEDS: Celecoxib 100 MG Cap PO SCH ×2 (07:35→17:39)
[2020-03-28] MEDS: Folic Acid 1 MG Tab PO SCH (07:35)
[2020-03-28] MEDS: Lisinopril 10 MG Tab PO SCH ×2 (07:35→19:04)
--- NOTE | 2020-03-28 10:44 | PCM.SN.2 ---
- Free Text/Narrative Note: DIANA Roldan asked me to look at patient toe. Patient just hit right 3rd toe on the tub. There is a small abrasion to the right 3rd toe at nailbed medially. Nailbed mildly loose. Asked RN to clean, apply neosporin, and band aid. No lucien tenderness. No imaging done.
[2020-03-28] MEDS ORDERED: Bacitracin/Neomycin/Polymyxin B Oint 0.9 GM U/D Packet TOP ONE (11:30)
[2020-03-28] MEDS: Enoxaparin 40 MG/0.4 ML Syringe SUBCUT SCH (11:36)
[2020-03-28] MEDS: Simvastatin 10 MG Tab PO SCH (19:04)
[2020-03-29] MEDS: Acetaminophen/oxyCODONE 325-5 MG Tab PO PRN ×3 (05:05→18:37)
[2020-03-29] MEDS: fentaNYL 100 MCG/2 ML SDV IVPUSH SCH ×2 (07:37→19:22)
[2020-03-29] MEDS: Cyclobenzaprine 10 MG Tab PO SCH ×2 (07:40→19:21)
[2020-03-29] MEDS: Celecoxib 100 MG Cap PO SCH ×2 (07:41→17:39)
[2020-03-29] MEDS: Levothyroxine 112 MCG Tab PO SCH (07:41)
[2020-03-29] MEDS: Lisinopril 10 MG Tab PO SCH ×2 (07:41→19:20)
[2020-03-29] MEDS: Amitriptyline 25 MG Tab PO SCH ×2 (07:42→19:21)
[2020-03-29] MEDS: Folic Acid 1 MG Tab PO SCH (07:42)
[2020-03-29] MEDS: Clopidogrel 75 MG Tab PO SCH (07:42)
[2020-03-29] MEDS: Acetaminophen 325 MG Tab PO PRN (08:50)
[2020-03-29] MEDS ORDERED: Polyethylene Glycol 3350 Powder 17 GM Packet PO ONE (11:31)
[2020-03-29] MEDS: Enoxaparin 40 MG/0.4 ML Syringe SUBCUT SCH (11:36)
[2020-03-29] MEDS: Simvastatin 10 MG Tab PO SCH (19:21)
[2020-03-30] MEDS: Levothyroxine 112 MCG Tab PO SCH (06:30)
[2020-03-30] MEDS: fentaNYL 100 MCG/2 ML SDV IVPUSH SCH (07:48)
[2020-03-30] MEDS: Clopidogrel 75 MG Tab PO SCH (07:49)
[2020-03-30] MEDS: Cyclobenzaprine 10 MG Tab PO SCH ×2 (07:49→19:16)
[2020-03-30] MEDS: Lisinopril 10 MG Tab PO SCH ×2 (07:49→19:16)
[2020-03-30] MEDS: Amitriptyline 25 MG Tab PO SCH ×2 (07:53→19:14)
[2020-03-30] MEDS: Celecoxib 100 MG Cap PO SCH ×2 (07:53→18:13)
[2020-03-30] MEDS: Folic Acid 1 MG Tab PO SCH (07:53)
[2020-03-30] MEDS: Enoxaparin 40 MG/0.4 ML Syringe SUBCUT SCH (11:30)
[2020-03-30] MEDS: Acetaminophen/oxyCODONE 325-5 MG Tab PO PRN (11:31)
[2020-03-30] MEDS ORDERED: fentaNYL 100 MCG/2 ML SDV IVPUSH PRN (16:58)
[2020-03-30] MEDS: Simvastatin 10 MG Tab PO SCH (19:16)
[2020-03-30] MEDS: Acetaminophen 325 MG Tab PO PRN (19:28)
[2020-03-31] MEDS: Levothyroxine 112 MCG Tab PO SCH (06:07)
[2020-03-31] MEDS: Cyclobenzaprine 10 MG Tab PO SCH ×2 (08:02→19:49)
[2020-03-31] MEDS: Folic Acid 1 MG Tab PO SCH (08:03)
[2020-03-31] MEDS: Lisinopril 10 MG Tab PO SCH ×2 (08:04→19:49)
[2020-03-31] MEDS: Celecoxib 100 MG Cap PO SCH ×2 (08:04→16:38)
[2020-03-31] MEDS: Amitriptyline 25 MG Tab PO SCH ×2 (08:04→19:50)
[2020-03-31] MEDS: Clopidogrel 75 MG Tab PO SCH (08:05)
[2020-03-31] MEDS: Acetaminophen 325 MG Tab PO PRN ×2 (08:27→16:38)
[2020-03-31] MEDS: Enoxaparin 40 MG/0.4 ML Syringe SUBCUT SCH (12:45)
[2020-03-31] MEDS: Simvastatin 10 MG Tab PO SCH (19:50)
[2020-04-01] MEDS: Acetaminophen 325 MG Tab PO PRN (02:42)
[2020-04-01] MEDS: Levothyroxine 112 MCG Tab PO SCH (06:43)
[2020-04-01 07:51] VITALS: BP 105/60; PULSE 66
[2020-04-01] MEDS: Lisinopril 10 MG Tab PO SCH (07:52)
[2020-04-01] MEDS: Cyclobenzaprine 10 MG Tab PO SCH (07:52)
[2020-04-01] MEDS: Folic Acid 1 MG Tab PO SCH (07:53)
[2020-04-01] MEDS: Amitriptyline 25 MG Tab PO SCH (07:53)
[2020-04-01] MEDS: Clopidogrel 75 MG Tab PO SCH (07:53)
[2020-04-01] MEDS: Celecoxib 100 MG Cap PO SCH (07:53)
--- NOTE | 2020-04-01 13:02 | PCM.DCSUM1 ---
Discharge Summary - Hospital Course Free Text/Narrative:: Patient presented to ER on the after a fall at home. He had a pre-existing deficit with left upper and lower extremity weakness related to a CVA. He had complained of mid back and left shoulder pain. CT scan did show a compression fracture of T6. Also showed concerning nodule in right upper lobe of lung. Was admitted for PT and pain control. During acute stay, patient did improve in regards to pain tolerance and activity. Plan was to proceed with MRI but unable to due to loop recorder present. Sling was applied due to left shoulder discomfort which did provide some relief. States has history of "torn rotator cuff". Ambulating with PT. Transferred to swing bed status for pT, pain control. Diagnosis: Stroke: No Modified Yang Scale: No Symptoms at All Modified Derby Scale Score: 0 - Discharge Data Discharge Date: 04/01/20 Discharge Disposition: Home, [facility] 06 Condition: Fair - Referral to Home Health Date of Face to Face Encounter: 04/01/20 Reason for Homebound Status: Patient unable to drive due to previous history of CVA Primary Care Physician: Jason Segura MD Skilled Need: Nursing to monitor pain level related to compression fracture, blood pressure and medication use. Physical therapy for ambulation/strengthening. Occupational therapy for ADLs. - Patient Summary/Data Complications: none Consults: Consultations 03/27/20 09:52 PT Evaluation and Treatment [CONS] Routine Hospital Course: Patient is doing well. Ambulating with cane. Tolerating pain with just Tylenol. Appetite is good. Will discharge home with home health. Follow up with Dr. Segura in regards to lung nodule. - Patient Instructions Diet: Usual Diet as Tolerated Activity: As Tolerated - Discharge Plan *PRESCRIPTION DRUG MONITORING PROGRAM REVIEWED*: No *COPY OF PRESCRIPTION DRUG MONITORING REPORT IN PATIENT WILSON: No Prescriptions/Med Rec: Cyclobenzaprine [Flexeril] 5 mg PO BID #60 tablet Home Medications: Home Meds Simvastatin 10 mg PO BEDTIME 02/16/15 [History] Cholecalciferol (Vitamin D3) [Vitamin D3] 5,000 unit PO DAILY 08/21/15 [History] Levothyroxine Sodium [Tirosint] 112 mcg PO DAILY 08/21/15 [History] [place]-3 Fatty Acids [Fish Oil] 1 cap PO DAILY 08/21/15 [History] Ubidecarenone [Coq-10] 100 mg PO DAILY 08/21/15 [History] Amitriptyline [Elavil] 25 mg PO QAM 12/28/17 [History] Ascorbic Acid [Vitamin C] 1,000 mg PO DAILY 12/28/17 [History] Clopidogrel [Plavix] 75 mg PO DAILY 12/28/17 [History] Lisinopril 10 mg PO BID 12/28/17 [History] Amitriptyline [Elavil] 37.5 mg PO BEDTIME 11/17/19 [History] Folic Acid 0.4 mg PO DAILY 11/17/19 [History] Magnesium Oxide 250 mg PO DAILY 03/24/20 [History] Acetaminophen [Tylenol] 650 mg PO Q4H PRN tablet 03/27/20 [Rx] Acetaminophen/oxyCODONE [Percocet 325-5 MG] 1 tab PO Q4H PRN tablet 03/27/20 [Rx] Celecoxib [CeleBREX] 100 mg PO BIDMEALS cap 03/27/20 [Rx] Magnesium Oxide 250 mg PO DAILY tablet 03/27/20 [Rx] Pantoprazole [ProTONIX] 40 mg PO DAILY@0730 PRN tab.cr 03/27/20 [Rx] Cyclobenzaprine [Flexeril] 5 mg PO BID #60 tablet 04/01/20 [Rx] Referrals: Jason Segura MD [Primary Care Provider] - (Hospital follow up with Dr. Segura in one week) - Discharge Summary/Plan Comment DC Time >30 min.: No - General Info Date of Service: 04/02/20 Admission Dx/Problem (Free Text: Compression fracture of T6 Functional Status: Reports: Pain Controlled, Tolerating Diet, Ambulating - Review of Systems General: Reports: Weakness HEENT: Reports: No Symptoms Pulmonary: Denies: Shortness of Breath, Cough Cardiovascular: Denies: Chest Pain, Edema, Lightheadedness Gastrointestinal: Denies: Abdominal Pain, Nausea, Vomiting Genitourinary: Reports: No Symptoms Musculoskeletal: Reports: Shoulder Pain, Back Pain Skin: Reports: No Symptoms Neurological: Reports: Pre-Existing Deficit - Patient Data Vitals - Most Recent: Last Vital Signs Temp 96.9 F 04/01/20 07:50 Pulse 66 04/01/20 07:50 Resp 16 04/01/20 07:50 BP 105/60 04/01/20 07:52 Pulse Ox 98 04/01/20 07:50 Weight - Most Recent: 235 lb Med Orders - Current: Current Medications Discontinued Medications Acetaminophen (Tylenol) 650 mg PO Q4H PRN PRN Reason: Pain (Mild 1-3)/fever Last Admin: 04/01/20 02:42 Dose: 650 mg Documented by: Amitriptyline HCl (Elavil) 25 mg PO QAM [facility] Last Admin: 04/01/20 07:53 Dose: 25 mg Documented by: Amitriptyline HCl (Elavil) 37.5 mg PO BEDTIME [facility] Last Admin: 03/31/20 19:50 Dose: 37.5 mg Documented by: Celecoxib (Celebrex) 100 mg PO BIDMEALS [facility] Last Admin: 04/01/20 07:53 Dose: 100 mg Documented by: Clopidogrel Bisulfate (Plavix) 75 mg PO DAILY [facility] Last Admin: 04/01/20 07:53 Dose: 75 mg Documented by: Cyclobenzaprine HCl (Flexeril) 5 mg PO BID [facility] Last Admin: 04/01/20 07:52 Dose: 5 mg Documented by: Enoxaparin Sodium (Lovenox) 40 mg SUBCUT Q24H [facility] Last Admin: 03/31/20 12:45 Dose: 40 mg Documented by: Fentanyl (Sublimaze) 25 mcg IVPUSH BID [facility] Last Admin: 03/30/20 07:48 Dose: 25 mcg Documented by: Fentanyl (Sublimaze) 25 mcg IVPUSH BID PRN PRN Reason: Pain Folic Acid (Folic Acid) 0.5 mg PO DAILY [facility] Last Admin: 04/01/20 07:53 Dose: 0.5 mg Documented by: Levothyroxine Sodium (Levothyroxine) 112 mcg PO ACBREAKFAST [facility] Last Admin: 04/01/20 06:43 Dose: 112 mcg Documented by: Lisinopril (Prinivil) 10 mg PO BID [facility] Last Admin: 04/01/20 07:52 Dose: 10 mg Documented by: Magnesium Oxide (Magnesium Oxide) 250 mg PO DAILY [facility] Last Admin: 04/01/20 07:52 Dose: 250 mg Documented by: Neomycin/Polymyxin/Bacitracin (Triple Antibiotic Oint) 1 each TOP ONETIME ONE Stop: 03/28/20 11:31 Last Admin: 03/28/20 11:37 Dose: 1 each Documented by: Oxycodone/Acetaminophen (Percocet 325-5 Mg) 1 tab PO Q4H PRN PRN Reason: Pain (moderate 4-6) Last Admin: 03/30/20 11:31 Dose: 1 tab Documented by: Pantoprazole Sodium (Protonix) 40 mg PO DAILY@0730 PRN PRN Reason: Indigestion Polyethylene Glycol (Miralax) 17 gm PO ONETIME ONE Stop: 03/29/20 11:32 Last Admin: 03/29/20 11:35 Dose: 17 gm Documented by: Simvastatin (Zocor) 10 mg PO BEDTIME [facility] Last Admin: 03/31/20 19:50 Dose: 10 mg Documented by: Sodium Chloride (Saline Flush) 10 ml FLUSH ASDIRECTED PRN PRN Reason: Keep Vein Open Sodium Chloride (Saline Flush) 10 ml FLUSH ASDIRECTED PRN PRN Reason: Keep Vein Open - Exam General: Reports: Alert, Oriented HEENT: Reports: Mucous Membr. Moist/[place] Neck: Reports: Supple Lungs: Reports: Clear to Auscultation, Normal Respiratory Effort Cardiovascular: Reports: Regular Rate, Regular Rhythm GI/Abdominal Exam: Normal Bowel Sounds, Soft, Non-Tender Back Exam: Denies: Vertebral Tenderness Extremities: Other (pre-existing left sided weakness) Skin: Reports: Warm, Dry Neurological: Reports: No New Focal Deficit
== END 2020-04-01 10:10 | disposition home health service (06) | DRG 560 ==
LOC: UNDOADMIN 09:32 → CC.MS 09:32 → UNDOADMIN 09:52 → CC.MS 10:34
PROVIDERS: ADMIT Physician Assistant Medical; ATTEND Family Medicine
DX: S22.059D Unspecified fracture of T5-T6 vertebra, subsequent encounter for fracture with routine healing (principal); I69.354 Hemiplegia and hemiparesis following cerebral infarction affecting left non-dominant side; R91.1 Solitary pulmonary nodule
CPT/HCPCS: 97110-GP; A9270-GY; G0283-GP; J1650; J3010

== ENCOUNTER 2020-07-07 23:16 | Observation (INO) | payer MEDICARE, BC ==
--- NOTE | 2020-07-07 23:49 | EDM.PDOC ---
ED HPI GENERAL MEDICAL PROBLEM - General Chief Complaint: General Stated Complaint: slurred speech Time Seen by Provider: 07/07/20 23:48 Source of Information: Reports: Patient, Family History Limitations: Reports: No Limitations - History of Present Illness INITIAL COMMENTS - FREE TEXT/NARRATIVE: Rich duron a 75 yo gentleman who is brought into the ED by his with concerns of stroke like symptoms. She states she started to notice symptoms earlier this evening. Had cardiology appointment in [place] today and didn't have any symptoms. States when they got home around 1400hrs he did seem a little unsteady on his feet. She admits he did have a full supper. After supper she admits he was having difficulty with his speech. He has known history of prior strokes, 1 in 2015 and the other in September of 2019. States he has chronic left sided arm weakness since the stroke with minimal movement. Nurse states when pt arrived to ED there was slight slurring noted but was able to understand pt. She admits he has known left sided facial drooping but questions if it isn't slightly worse. Onset Date: 07/07/20 Duration: Improving Location: Reports: Head - Related Data Allergies Allergy/AdvReac Type Severity Reaction Status Date / Time indomethacin [From Indocin] AdvReac Intermediate Lightheaded Verified 07/07/20 23:25 ness indomethacin sodium AdvReac Intermediate Lightheaded Verified 07/07/20 23:25 [From Indocin] ness dye Allergy Intermediate Itching Uncoded 07/07/20 23:25 Home Meds: Home Meds Simvastatin 10 mg PO BEDTIME 02/16/15 [History] Cholecalciferol (Vitamin D3) [Vitamin D3] 5,000 unit PO DAILY 08/21/15 [History] Levothyroxine Sodium [Tirosint] 112 mcg PO DAILY 08/21/15 [History] [place]-3 Fatty Acids [Fish Oil] 1 cap PO DAILY 08/21/15 [History] Ubidecarenone [Coq-10] 100 mg PO DAILY 08/21/15 [History] Amitriptyline [Elavil] 25 mg PO QAM 12/28/17 [History] Ascorbic Acid [Vitamin C] 1,000 mg PO DAILY 12/28/17 [History] Clopidogrel [Plavix] 75 mg PO DAILY 12/28/17 [History] Lisinopril 10 mg PO BID 12/28/17 [History] Amitriptyline [Elavil] 1.5 tab PO BEDTIME 11/17/19 [History] Folic Acid 0.4 mg PO DAILY 11/17/19 [History] Magnesium Oxide 250 mg PO DAILY 03/24/20 [History] Acetaminophen/oxyCODONE [Percocet 325-5 MG] 1 tab PO Q4H PRN tablet 03/27/20 [Rx] Melatonin 15 mg PO DAILY 07/07/20 [History] Zinc 50 mg PO DAILY 07/07/20 [History] Past Medical History HEENT History: Reports: Cataract Cardiovascular History: Reports: Hypertension Other Cardiovascular History: stent placement 10 years ago Genitourinary History: Reports: BPH Musculoskeletal History: Reports: Other (See Below) Other Musculoskeletal History: 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 Neurological History: Reports: CVA Other Neuro History: x2...October 11, 2015, 12/2019 Endocrine/Metabolic History: Reports: Hypothyroidism - Past Surgical History GI Surgical History: Reports: Hernia, Inguinal Musculoskeletal Surgical History: Reports: Carpal Tunnel, Knee Replacement Social & Family History - Family History Family Medical History: No Pertinent Family History - Caffeine Use Caffeine Use: Reports: Coffee, Soda - Living Situation & Occupation Living situation: Reports: , with Spouse Occupation: Employed ED ROS GENERAL - Review of Systems Review Of Systems: See Below Constitutional: Reports: No Symptoms, Weakness. Denies: Fever HEENT: Reports: No Symptoms. Denies: Vision Change Respiratory: Reports: No Symptoms. Denies: Shortness of Breath, Cough Cardiovascular: Reports: Edema. Denies: Chest Pain, Dyspnea on Exertion, Lightheadedness, Palpitations GI/Abdominal: Reports: No Symptoms : Reports: No Symptoms Musculoskeletal: Reports: No Symptoms Skin: Reports: No Symptoms Neurological: Reports: Headache (dull headache posterior aspect of scalp for 2 weeks), Pre-Existing Deficit (left sided weakness secondary to prior stroke), Change in Speech. Denies: Seizure, Difficulty Walking Psychiatric: Reports: No Symptoms ED EXAM, GENERAL - Physical Exam Exam: See Below Exam Limited By: No Limitations General Appearance: Alert, No Apparent Distress Eye Exam: Bilateral Eye: EOMI, PERRL Ears: Normal External Exam, Normal Canal, Hearing Grossly Normal, Normal TMs Nose: Normal Inspection, Normal Mucosa, No Blood Throat/Mouth: Normal Voice, No Airway Compromise Head: Atraumatic, Normocephalic Neck: Normal Inspection, Supple Respiratory/Chest: No Respiratory Distress, Lungs Clear, No Accessory Muscle Use Cardiovascular: Regular Rate, Rhythm, Systolic Murmur GI/Abdominal: Normal Bowel Sounds, Soft, Non-Tender, No Organomegaly, No Distention Extremities: Normal Inspection, Non-Tender, Pedal Edema (1+, left worse than right) Neurological: Alert, Oriented, Other (slightly slurred speech, appears to be improving, has known slight deficit). No: Confused, Disoriented, Slow to Respond, Unresponsive Psychiatric: Normal Affect, Normal Mood Skin Exam: Warm, Dry, Intact, Normal Color, No Rash #1 Interpretation EKG Date: 07/08/20 Rhythm: Other (Junctional rhythm) Rate (Beats/Min): 61 ST-T: Other (t wave inversion) Comparison: Change From Previous EKG Course - Vital Signs Last Recorded V/S: Last Vital Signs Temp 98.0 F 07/07/20 23:38 Pulse 68 07/07/20 23:38 Resp 20 07/07/20 23:38 BP 120/70 07/07/20 23:38 Pulse Ox 94 L 07/07/20 23:38 - Orders/Labs/Meds Orders: Active Orders 24 hr Category Date Time Status Head wo Cont [CT] Stat Exams 07/07/20 23:39 Taken Labs: Laboratory Tests 07/07/20 07/07/20 07/07/20 Range/Units 23:38 23:54 23:54 WBC 6.5 (5.0-10.0) 10^3/uL RBC 3.68 L (4.50-6.00) 10^6/uL Hgb 11.9 L (14.0-18.0) g/dL Hct 35.3 L (40.0-54.0) % MCV 95.9 H (82.0-94.0) fL MCH 32.3 H (27.0-32.0) pg MCHC 33.7 (33.0-38.0) g/dL RDW Coeff of Li 12.4 (11.0-15.0) % Plt Count 158 (150-400) 10^3/uL Neut % (Auto) 45.0 (35-85) % Lymph % (Auto) 35.7 (10-55) % Luce % (Auto) 12.1 (0-16) % Eos % (Auto) 6.6 H (0-5) % Baso % (Auto) 0.6 (0-3) % Neut # (Auto) 2.94 (1.80-7.00) 10^3/uL Lymph # (Auto) 2.33 (1.00-4.80) 10^3/uL Luce # (Auto) 0.79 (0.00-0.80) 10^3/uL Eos # (Auto) 0.43 (0.00-0.45) 10^3/uL Baso # (Auto) 0.04 10^3/uL PT (9.7-12.3) SEC INR (0.92-1.18) APTT (23.2-32.3) SEC Sodium 137 (136-145) mEq/L Potassium 4.1 (3.5-5.0) mEq/L Chloride 101 (98-106) mEq/L Carbon Dioxide 26 (21-32) mmol/L BUN 34 H (7-18) mg/dL Creatinine 1.6 H (0.7-1.3) mg/dL Est Cr Clr Drug Dosing 43.11 mL/min Estimated GFR (MDRD) 42 L (>=60) mL/min Glucose 123 H (75-99) mg/dL Calcium 9.2 (8.4-10.1) mg/dL Creatine Kinase 51 (35-232) U/L Troponin I < 0.017 (0.00-0.06) ng/mL Urine Color Yellow (YELLOW) Urine Appearance Clear (CLEAR) Urine pH 6.0 (4.5-8.0) Ur Specific [place] >= 1.030 H (1.003-1.020) Urine Protein Negative (NEGATIVE) mg/dL Urine Glucose (UA) Negative (NEGATIVE) mg/dL Urine Ketones Negative (NEGATIVE) mg/dL Urine Occult Blood Negative (NEGATIVE) Urine Nitrite Negative (NEGATIVE) Urine Bilirubin Negative (NEGATIVE) Urine Urobilinogen 0.2 (0.2-1.0) EU/dL Ur Leukocyte Esterase Negative (NEGATIVE) 07/07/20 Range/Units 23:54 WBC (5.0-10.0) 10^3/uL RBC (4.50-6.00) 10^6/uL Hgb (14.0-18.0) g/dL Hct (40.0-54.0) % MCV (82.0-94.0) fL MCH (27.0-32.0) pg MCHC (33.0-38.0) g/dL RDW Coeff of Li (11.0-15.0) % Plt Count (150-400) 10^3/uL Neut % (Auto) (35-85) % Lymph % (Auto) (10-55) % Luce % (Auto) (0-16) % Eos % (Auto) (0-5) % Baso % (Auto) (0-3) % Neut # (Auto) (1.80-7.00) 10^3/uL Lymph # (Auto) (1.00-4.80) 10^3/uL Luce # (Auto) (0.00-0.80) 10^3/uL Eos # (Auto) (0.00-0.45) 10^3/uL Baso # (Auto) 10^3/uL PT 10.3 (9.7-12.3) SEC INR 1.02 (0.92-1.18) APTT 22.4 L (23.2-32.3) SEC Sodium (136-145) mEq/L Potassium (3.5-5.0) mEq/L Chloride (98-106) mEq/L Carbon Dioxide (21-32) mmol/L BUN (7-18) mg/dL Creatinine (0.7-1.3) mg/dL Est Cr Clr Drug Dosing mL/min Estimated GFR (MDRD) (>=60) mL/min Glucose (75-99) mg/dL Calcium (8.4-10.1) mg/dL Creatine Kinase (35-232) U/L Troponin I (0.00-0.06) ng/mL Urine Color (YELLOW) Urine Appearance (CLEAR) Urine pH (4.5-8.0) Ur Specific [place] (1.003-1.020) Urine Protein (NEGATIVE) mg/dL Urine Glucose (UA) (NEGATIVE) mg/dL Urine Ketones (NEGATIVE) mg/dL Urine Occult Blood (NEGATIVE) Urine Nitrite (NEGATIVE) Urine Bilirubin (NEGATIVE) Urine Urobilinogen (0.2-1.0) EU/dL Ur Leukocyte Esterase (NEGATIVE) Departure - Departure Time of Disposition: 00:54 Disposition: Refer to Observation Clinical Impression: TIA (transient ischemic attack) - Discharge Information *PRESCRIPTION DRUG MONITORING PROGRAM REVIEWED*: Not Applicable *COPY OF PRESCRIPTION DRUG MONITORING REPORT IN PATIENT WILSON: Not Applicable Referrals: PCP,None [Primary Care Provider] - Forms: ED Department Discharge Sepsis Event Note (ED) - Focused Exam Vital Signs: Vital Signs Temp Pulse Resp BP Pulse Ox 07/07/20 23:38 98.0 F 68 20 120/70 94 L - Problem List & Annotations (1) TIA (transient ischemic attack) SNOMED Code(s): 000919013 Code(s): G45.9 - TRANSIENT CEREBRAL ISCHEMIC ATTACK, UNSPECIFIED Status: Acute Current Visit: Yes - My Orders Last 24 Hours: My Active Orders 07/07/20 23:39 Head wo Cont [CT] Stat - Assessment/Plan Admission H&P: Please use this note as an admission H&P Last 24 Hours: My Active Orders 07/07/20 23:39 Head wo Cont [CT] Stat Plan: Discussed findings with Rich and his . CT of the brain was negative for any acute or subacute findings. Radiologist did state no change from prior. Labs overall were unremarkable today. Creatinine slightly elevated at 1.6 which is chronic. Cardiac enzymes were negative. Will admit to Dr. Harris's services under observation for close monitoring. Discussed transfer to [facility] where he sees cardiology and neurology. Patient's primary is Dr. Segura in [place], which I am unable to see prior imaging, neuro consults, etc... Rich and his felt this wasn't necessary at this time. patient is a Code 2 status. Appears to be doing well. Score of 2 on stroke scale tonight as he has known left sided deficits. Patient transferred to floor in satisfactory condition. Will do serial neuro checks and will be placed on telemetry.
[2020-07-08 00:13] LABS: PTT,PARTIAL THROMBOPLSTIN TIME 22.4 SEC (23.2-32.3)
[2020-07-08 00:16] LABS: CHLORIDE,CL 101 mEq/L (98-106); SODIUM,NA 137 mEq/L (136-145)
[2020-07-08] MEDS ORDERED: Acetaminophen/oxyCODONE 325-5 MG Tab PO PRN (01:06)
[2020-07-08] MEDS ORDERED: Sodium Chloride 0.9% 10 ML Syringe FLUSH PRN (01:53)
[2020-07-08] MEDS ORDERED: Acetaminophen 325 MG Tab PO PRN (01:53)
[2020-07-08 07:42] LABS: CHLORIDE,CL 103 mEq/L (98-106); SODIUM,NA 138 mEq/L (136-145)
[2020-07-08] MEDS ORDERED: CLOPIDOGREL 75 MG PO SCH (08:00)
[2020-07-08] MEDS: AMITRIPTYLINE 25 MG PO SCH ×2 (10:17→20:13)
[2020-07-08] MEDS: FOLIC ACID 0.4 MG PO SCH (10:17)
[2020-07-08] MEDS: Lisinopril 10 MG Tab PO SCH ×2 (10:18→20:04)
[2020-07-08] MEDS: MAGNESIUM OXIDE 250 MG PO SCH (10:18)
[2020-07-08] MEDS: Clopidogrel 75 MG Tab PO SCH (10:19)
[2020-07-08] MEDS: MELATONIN 3 MG PO SCH (20:13)
[2020-07-08] MEDS: SIMVASTATIN 10 MG PO SCH (20:13)
[2020-07-09] MEDS: FOLIC ACID 0.4 MG PO SCH (07:30)
[2020-07-09] MEDS: AMITRIPTYLINE 25 MG PO SCH ×2 (07:30→19:51)
[2020-07-09] MEDS: MAGNESIUM OXIDE 250 MG PO SCH (07:30)
--- NOTE | 2020-07-09 07:47 | PCM.PN ---
- General Info Date of Service: 07/08/20 Admission Dx/Problem (Free Text): TIA Subjective Update: Rich is a 75 yo who was admitted to the hospital for observation secondary to TIA. Has history of prior stroke in September 2019 with contracture of left arm. 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 was concerned speech had worsened on the evening of the as was brought into the ED. CT scan of the brain was negative for any acute findings. 07/08/2020 Rich states he is feeling well this morning, tired from not getting much sleep last night. Denies any new onset of headaches, worsening speech. Has been ambulatory to the bathroom as well. No current concerns. Did have a decent appetite and ate his breakfast without complications today. - Review of Systems General: Denies: Fever HEENT: Reports: No Symptoms Pulmonary: Reports: No Symptoms Cardiovascular: Reports: No Symptoms Gastrointestinal: Reports: No Symptoms Genitourinary: Reports: No Symptoms Musculoskeletal: Reports: No Symptoms Neurological: Reports: No Symptoms, Pre-Existing Deficit. Denies: Change in Speech - Patient Data Vitals - Most Recent: Last Vital Signs Temp 97.7 F 07/09/20 03:41 Pulse 60 07/09/20 03:41 Resp 18 07/09/20 03:41 BP 119/70 07/09/20 03:41 Pulse Ox 94 L 07/09/20 03:41 Weight - Most Recent: 236 lb 11.2 oz Lab Results Last 24 Hours: Laboratory Results - last 24 hr 07/08/20 Range/Units 07:20 Sodium 138 (136-145) mEq/L Potassium 4.5 (3.5-5.0) mEq/L Chloride 103 (98-106) mEq/L Carbon Dioxide 26 (21-32) mmol/L BUN 34 H (7-18) mg/dL Creatinine 1.5 H (0.7-1.3) mg/dL Est Cr Clr Drug Dosing 45.99 mL/min Estimated GFR (MDRD) 46 L (>=60) mL/min Glucose 98 (75-99) mg/dL Calcium 9.3 (8.4-10.1) mg/dL Creatine Kinase 45 (35-232) U/L Troponin I < 0.017 (0.00-0.06) ng/mL Med Orders - Current: Current Medications Acetaminophen (Tylenol) 650 mg PO Q4H PRN PRN Reason: Pain (Mild 1-3)/fever Amitriptyline HCl (Elavil) 37.5 mg PO BEDTIME [facility] Last Admin: 07/08/20 20:13 Dose: Not Given Documented by: Amitriptyline HCl (Elavil) 25 mg PO QAM [facility] Last Admin: 07/09/20 07:30 Dose: Not Given Documented by: Clopidogrel Bisulfate (Plavix) 75 mg PO DAILY [facility] Last Admin: 07/08/20 10:19 Dose: 75 mg Documented by: Lisinopril (Prinivil) 10 mg PO BID [facility] Last Admin: 07/08/20 20:04 Dose: 10 mg Documented by: Magnesium Oxide (Magnesium Oxide) 250 mg PO DAILY [facility] Last Admin: 07/09/20 07:30 Dose: Not Given Documented by: Melatonin (Melatonin) 15 mg PO BEDTIME [facility] Last Admin: 07/08/20 20:13 Dose: Not Given Documented by: (Folic Acid [Folic Acid] 0.4 Mg) Own Med 0.4 mg PO DAILY [facility] Last Admin: 07/09/20 07:30 Dose: Not Given Documented by: (Levothyroxine Sodium [Tirosint] 112 Mcg)Own Med * 112 mcg PO DAILY [facility] Last Admin: 07/09/20 07:30 Dose: Not Given Documented by: Simvastatin (Zocor) 10 mg PO BEDTIME [facility] Last Admin: 07/08/20 20:13 Dose: Not Given Documented by: Sodium Chloride (Saline Flush) 10 ml FLUSH ASDIRECTED PRN PRN Reason: Keep Vein Open Discontinued Medications Clopidogrel Bisulfate (Plavix) 75 mg PO DAILY [facility] Last Admin: 07/08/20 10:19 Dose: Not Given Documented by: Oxycodone/Acetaminophen (Percocet 325-5 Mg) 1 tab PO Q4H PRN PRN Reason: Pain (moderate 4-6) - Exam General: Alert, Oriented, Cooperative, No Acute Distress HEENT: Pupils Equal, Pupils Reactive, EOMI Lungs: Clear to Auscultation, Normal Respiratory Effort Cardiovascular: Regular Rate, Regular Rhythm, Murmurs GI/Abdominal Exam: Normal Bowel Sounds, Soft, Non-Tender Extremities: Non-Tender, Pedal Edema Skin: Warm, Dry, Intact Neurological: No New Focal Deficit Psy/Mental Status: Alert, Normal Affect, Normal Mood Sepsis Event Note - Evaluation Sepsis Screening Result: No Definite Risk - Focused Exam Vital Signs: Vital Signs Temp Pulse Resp BP BP Pulse Ox 07/09/20 03:41 97.7 F 60 18 119/70 94 L 07/08/20 23:21 96.9 F 66 18 151/81 H 93 L 07/08/20 20:04 144/77 H 07/08/20 20:00 98.4 F 61 18 144/77 H 96 - Problem List & Annotations (1) TIA (transient ischemic attack) SNOMED Code(s): 578177920 Code(s): G45.9 - TRANSIENT CEREBRAL ISCHEMIC ATTACK, UNSPECIFIED Status: Acute Current Visit: Yes - Problem List Review Problem List Initiated/Reviewed/Updated: Yes - My Orders Last 24 Hours: My Active Orders 07/08/20 Breakfast Mechanical Soft Diet [DIET] Amitriptyline [Elavil] 25 mg PO QAM Folic Acid [Folic Acid] 0.4 mg PO DAILY Levothyroxine Sodium [Tirosint] 112 mcg PO DAILY Magnesium Oxide 250 mg PO DAILY lisinopriL [Prinivil] 10 mg PO BID 07/08/20 09:55 Clopidogrel [Plavix] 75 mg PO DAILY 07/08/20 20:00 Amitriptyline [Elavil] 37.5 mg PO BEDTIME Melatonin 15 mg PO BEDTIME Simvastatin [Zocor] 10 mg PO BEDTIME - Plan Plan:: 07/08/2020 Patient was admitted in the middle of the night and will continue to monitor for 24 hrs. No new onset of symptoms. Vital signs have been stable. Speech continues to be slurred at times which he does have history of speech impediment from prior CVA. Continue neurochecks q4h. Will consult with Dr. Harris in regards to discharge tomorrow.
--- NOTE | 2020-07-09 08:14 | PCM.PN ---
- General Info Date of Service: 07/09/20 Admission Dx/Problem (Free Text): TIA Subjective Update: Rich is a 75 yo gentleman who was admitted for TIA with slurred speech. He states he is feeling well this morning. Has been up ambulating. Currently sitting in chair eating breakfast. States he feels his speech is close to baseline. 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 Had dull posterior headache on admission that had been present for a few weeks but now states it is gone. - Review of Systems General: Reports: No Symptoms HEENT: Reports: No Symptoms Pulmonary: Reports: No Symptoms Cardiovascular: Reports: No Symptoms Gastrointestinal: Reports: No Symptoms Genitourinary: Reports: No Symptoms Musculoskeletal: Reports: No Symptoms Neurological: Reports: No Symptoms. Denies: Headache Psychiatric: Reports: No Symptoms - Patient Data Vitals - Most Recent: Last Vital Signs Temp 97.7 F 07/09/20 03:41 Pulse 60 07/09/20 03:41 Resp 18 07/09/20 03:41 BP 119/70 07/09/20 03:41 Pulse Ox 94 L 07/09/20 03:41 Weight - Most Recent: 236 lb 11.2 oz Med Orders - Current: Current Medications Acetaminophen (Tylenol) 650 mg PO Q4H PRN PRN Reason: Pain (Mild 1-3)/fever Amitriptyline HCl (Elavil) 37.5 mg PO BEDTIME [facility] Last Admin: 07/08/20 20:13 Dose: Not Given Documented by: Amitriptyline HCl (Elavil) 25 mg PO QAM [facility] Last Admin: 07/09/20 07:30 Dose: Not Given Documented by: Clopidogrel Bisulfate (Plavix) 75 mg PO DAILY [facility] Last Admin: 07/08/20 10:19 Dose: 75 mg Documented by: Lisinopril (Prinivil) 10 mg PO BID [facility] Last Admin: 07/08/20 20:04 Dose: 10 mg Documented by: Magnesium Oxide (Magnesium Oxide) 250 mg PO DAILY [facility] Last Admin: 07/09/20 07:30 Dose: Not Given Documented by: Melatonin (Melatonin) 15 mg PO BEDTIME [facility] Last Admin: 07/08/20 20:13 Dose: Not Given Documented by: (Folic Acid [Folic Acid] 0.4 Mg) Own Med 0.4 mg PO DAILY [facility] Last Admin: 07/09/20 07:30 Dose: Not Given Documented by: (Levothyroxine Sodium [Tirosint] 112 Mcg)Own Med * 112 mcg PO DAILY [facility] Last Admin: 07/09/20 07:30 Dose: Not Given Documented by: Simvastatin (Zocor) 10 mg PO BEDTIME [facility] Last Admin: 07/08/20 20:13 Dose: Not Given Documented by: Sodium Chloride (Saline Flush) 10 ml FLUSH ASDIRECTED PRN PRN Reason: Keep Vein Open Discontinued Medications Clopidogrel Bisulfate (Plavix) 75 mg PO DAILY [facility] Last Admin: 07/08/20 10:19 Dose: Not Given Documented by: Oxycodone/Acetaminophen (Percocet 325-5 Mg) 1 tab PO Q4H PRN PRN Reason: Pain (moderate 4-6) - Exam General: Alert, Oriented, Cooperative, No Acute Distress HEENT: Pupils Equal, Pupils Reactive Neck: Supple Lungs: Clear to Auscultation, Normal Respiratory Effort. No: Crackles, Rales, Rhonchi Cardiovascular: Regular Rate, Regular Rhythm, Murmurs GI/Abdominal Exam: Normal Bowel Sounds, Soft, Non-Tender Extremities: Normal Inspection, Pedal Edema (1+ bilateral) Skin: Warm, Dry, Intact Neurological: No New Focal Deficit Psy/Mental Status: Alert, Normal Affect, Normal Mood Sepsis Event Note - Evaluation Sepsis Screening Result: No Definite Risk - Focused Exam Vital Signs: Vital Signs Temp Pulse Resp BP Pulse Ox 07/09/20 03:41 97.7 F 60 18 119/70 94 L 07/08/20 23:21 96.9 F 66 18 151/81 H 93 L - Problem List & Annotations (1) TIA (transient ischemic attack) SNOMED Code(s): 099659899 Code(s): G45.9 - TRANSIENT CEREBRAL ISCHEMIC ATTACK, UNSPECIFIED Status: Acute Current Visit: Yes - Problem List Review Problem List Initiated/Reviewed/Updated: Yes - My Orders Last 24 Hours: My Active Orders 07/08/20 Breakfast Mechanical Soft Diet [DIET] Amitriptyline [Elavil] 25 mg PO QAM Folic Acid [Folic Acid] 0.4 mg PO DAILY Levothyroxine Sodium [Tirosint] 112 mcg PO DAILY Magnesium Oxide 250 mg PO DAILY lisinopriL [Prinivil] 10 mg PO BID 07/08/20 09:55 Clopidogrel [Plavix] 75 mg PO DAILY 07/08/20 20:00 Amitriptyline [Elavil] 37.5 mg PO BEDTIME Melatonin 15 mg PO BEDTIME Simvastatin [Zocor] 10 mg PO BEDTIME 07/09/20 08:06 Carotid Comp [US] Routine Echo Comp wo Cont [US] Routine - Plan Plan:: 07/08/2020 Patient was admitted in the middle of the night and will continue to monitor for 24 hrs. No new onset of symptoms. Vital signs have been stable. Speech continues to be slurred at times which he does have history of speech impediment from prior CVA. Continue neurochecks q4h. Will consult with Dr. Harris in regards to discharge tomorrow. 07/09/2020 Rich is doing well this morning. Neuro checks haven't changed since admit. Speech appears to be improved. Patient does well when he slows his articulation down. Discussed Rich's condition with Dr. Harris and will get echo and carotid today. Unfortunately, was unable to get ultrasound yesterday with machine d/t maintenance. Dr. Harris did evaluate and will have 30 day cardiac event monitor placed at discharge.
[2020-07-09] MEDS: Clopidogrel 75 MG Tab PO SCH (09:30)
[2020-07-09] MEDS: Lisinopril 10 MG Tab PO SCH ×2 (09:34→19:47)
[2020-07-09] MEDS: SIMVASTATIN 10 MG PO SCH (19:47)
[2020-07-09] MEDS: MELATONIN 3 MG PO SCH (19:51)
[2020-07-09] MEDS ORDERED: Simvastatin 10 MG Tab ONE (20:01)
[2020-07-10 05:39] VITALS: PULSE 60
[2020-07-10] MEDS: Clopidogrel 75 MG Tab PO SCH (07:53)
[2020-07-10] MEDS: Lisinopril 10 MG Tab PO SCH (07:53)
[2020-07-10] MEDS: AMITRIPTYLINE 25 MG PO SCH (07:54)
[2020-07-10] MEDS: FOLIC ACID 0.4 MG PO SCH (07:54)
[2020-07-10] MEDS: MAGNESIUM OXIDE 250 MG PO SCH (07:56)
--- NOTE | 2020-07-10 09:21 | PCM.DCSUM1 ---
Discharge Summary - Hospital Course HPI Initial Comments: Rich is a 75 yo gentleman who is brought into the ED by his with concerns of stroke like symptoms on the 07 of July. She states she started to notice symptoms earlier that evening. Had cardiology appointment in [place] on the and didn't have any symptoms. States when they got home around 1400hrs he did seem a little unsteady on his feet. She admits he did have a full supper. After supper she admits he was having difficulty with his speech. He has known history of prior strokes, 1 in 2015 and the other in September of 2019. States he has chronic left sided arm weakness since the stroke with minimal movement. Nurse states when pt arrived to ED there was slight slurring noted but was able to understand pt. She admits he has known left sided facial drooping but questions if it isn't slightly worse. Diagnosis: Stroke: Yes Modified Yang Scale: Mod.Disablility Requiring Some Help,Able to Walk Without Assistance Modified Yang Scale Score: 3 - Discharge Data Discharge Date: 07/10/20 Discharge Disposition: Home, Self-Care 01 Condition: Poor - Referral to Home Health Primary Care Physician: Jason Segura MD - Discharge Diagnosis/Problem(s) (1) TIA (transient ischemic attack) SNOMED Code(s): 360302952 ICD Code: G45.9 - TRANSIENT CEREBRAL ISCHEMIC ATTACK, UNSPECIFIED Status: Acute Current Visit: Yes (2) Stenosis of left internal carotid artery SNOMED Code(s): 912167160, 115142514003327 ICD Code: I65.22 - OCCLUSION AND STENOSIS OF LEFT CAROTID ARTERY Status: Acute Current Visit: Yes - Patient Instructions Diet: Heart Healthy Diet Activity: As Tolerated - Discharge Plan *PRESCRIPTION DRUG MONITORING PROGRAM REVIEWED*: Not Applicable *COPY OF PRESCRIPTION DRUG MONITORING REPORT IN PATIENT [facility]ILSON: Not Applicable Home Medications: Home Meds Simvastatin 10 mg PO BEDTIME 02/16/15 [History] Cholecalciferol (Vitamin D3) [Vitamin D3] 5,000 unit PO DAILY 08/21/15 [History] Levothyroxine Sodium [Tirosint] 112 mcg PO DAILY 08/21/15 [History] [place]-3 Fatty Acids [Fish Oil] 1 cap PO DAILY 08/21/15 [History] Ubidecarenone [Coq-10] 100 mg PO DAILY 08/21/15 [History] Amitriptyline [Elavil] 25 mg PO QAM 12/28/17 [History] Ascorbic Acid [Vitamin C] 1,000 mg PO DAILY 12/28/17 [History] Clopidogrel [Plavix] 75 mg PO DAILY 12/28/17 [History] Lisinopril 10 mg PO BID 12/28/17 [History] Amitriptyline [Elavil] 1.5 tab PO BEDTIME 11/17/19 [History] Folic Acid 0.4 mg PO DAILY 11/17/19 [History] Magnesium Oxide 250 mg PO DAILY 03/24/20 [History] Melatonin 15 mg PO DAILY 07/07/20 [History] Zinc 50 mg PO DAILY 07/07/20 [History] Oxygen Therapy Mode: Room Air Patient Handouts: Carotid Artery Disease, [id number], Transient Ischemic Attack, [id number] Forms: ED Department Discharge Referrals: Jason Segura MD [Primary Care Provider] - 07/13/20 (Dr. Jason Segura next week for follow up TIA with left internal carotid stenosis) PCP,None [Ordering Only Provider] - () - Discharge Summary/Plan Comment DC Time >30 min.: Yes Discharge Summary/Plan Comment: Rich continues to have some slurred speech at times. It appears if he slows down it significantly improves. Patient is in good spirits. Will discharge home today. Advise to continue the Plavix. Carotid duplex does show severe left internal carotid stenosis. Appointment scheduled with Dr. Segura to discuss CTA and vascular surgery consult. Called to discuss Melchor's condition and is aware. Did discuss patient had multiple tests done this last year at [facility] in [place] as well. - General Info Date of Service: 07/10/20 Subjective Update: Rich is a 75 yo gentleman who was admitted for TIA with slurred speech. He s tates he is feeling well this morning. Has been up ambulating. Currently sitting in chair eating breakfast. States he feels his speech is close to baseline. 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 Had dull posterior headache on admission that had been present for a few weeks but now states it is gone. Patient continues to be feeling well and denies any worsening of symptoms. States he would like to go home today. Discussed cardiac event monitor but patient states he recently had a loop recorder placed and nothing was found. Was removed and pacemaker placed. Functional Status: Reports: Tolerating Diet, Ambulating. Denies: New Symptoms - Review of Systems General: Reports: No Symptoms HEENT: Reports: No Symptoms. Denies: Headaches Pulmonary: Reports: No Symptoms Cardiovascular: Reports: No Symptoms. Denies: Chest Pain, Palpitations, Lightheadedness Gastrointestinal: Reports: No Symptoms Genitourinary: Reports: No Symptoms Musculoskeletal: Denies: Arm Pain Skin: Reports: No Symptoms Neurological: Reports: Pre-Existing Deficit (left arm contracture, intermittent slurred speech). Denies: Headache, Tremors, Difficulty Walking, Change in Speech, Gait Disturbance Psychiatric: Reports: No Symptoms - Patient Data Vitals - Most Recent: Last Vital Signs Temp 98.1 F 07/10/20 04:00 Pulse 60 07/10/20 04:00 Resp 18 07/10/20 04:00 BP 118/76 07/10/20 07:53 Pulse Ox 95 07/10/20 04:00 Weight - Most Recent: 236 lb 11.2 oz Med Orders - Current: Current Medications Acetaminophen (Tylenol) 650 mg PO Q4H PRN PRN Reason: Pain (Mild 1-3)/fever Amitriptyline HCl (Elavil) 37.5 mg PO BEDTIME [facility] Last Admin: 07/09/20 19:51 Dose: Not Given Documented by: Amitriptyline HCl (Elavil) 25 mg PO QAM [facility] Last Admin: 07/10/20 07:54 Dose: Not Given Documented by: Clopidogrel Bisulfate (Plavix) 75 mg PO DAILY [facility] Last Admin: 07/10/20 07:53 Dose: 75 mg Documented by: Lisinopril (Prinivil) 10 mg PO BID [facility] Last Admin: 07/10/20 07:53 Dose: 10 mg Documented by: Magnesium Oxide (Magnesium Oxide) 250 mg PO DAILY [facility] Last Admin: 07/10/20 07:56 Dose: Not Given Documented by: Melatonin (Melatonin) 15 mg PO BEDTIME [facility] Last Admin: 07/09/20 19:51 Dose: Not Given Documented by: (Folic Acid [Folic Acid] 0.4 Mg) Own Med 0.4 mg PO DAILY [facility] Last Admin: 07/10/20 07:54 Dose: Not Given Documented by: (Levothyroxine Sodium [Tirosint] 112 Mcg)Own Med * 112 mcg PO DAILY [facility] Last Admin: 07/10/20 07:54 Dose: Not Given Documented by: Simvastatin (Zocor) 10 mg PO BEDTIME [facility] Last Admin: 07/09/20 19:47 Dose: 10 mg Documented by: Sodium Chloride (Saline Flush) 10 ml FLUSH ASDIRECTED PRN PRN Reason: Keep Vein Open Discontinued Medications Clopidogrel Bisulfate (Plavix) 75 mg PO DAILY [facility] Last Admin: 07/08/20 10:19 Dose: Not Given Documented by: Oxycodone/Acetaminophen (Percocet 325-5 Mg) 1 tab PO Q4H PRN PRN Reason: Pain (moderate 4-6) Simvastatin (Zocor) Confirm Administered Dose 10 mg .ROUTE .STK-MED ONE Stop: 07/09/20 20:02 Last Admin: 07/09/20 19:51 Dose: Not Given Documented by: - Exam General: Reports: Alert, Oriented, Cooperative, No Acute Distress HEENT: Reports: Pupils Equal, EOMI Neck: Reports: Supple Lungs: Reports: Clear to Auscultation, Normal Respiratory Effort Cardiovascular: Reports: Regular Rate, Regular Rhythm, Murmurs GI/Abdominal Exam: Normal Bowel Sounds, Soft, Non-Tender, No Distention Extremities: Normal Inspection, Pedal Edema (L>R, 1+ bilaterally) Skin: Reports: Warm, Dry, Intact Neurological: Reports: No New Focal Deficit Psy/Mental Status: Reports: Alert, Normal Affect, Normal Mood
[2020-07-10 12:29] VITALS: BP 141/73
== END 2020-07-10 12:50 | disposition home or self-care (01) ==
LOC: CC.ED 23:16 → CC.MS 07-08 01:01 → UNDOADMOB 07-08 01:04
PROVIDERS: ADMIT Physician Assistant Medical; ATTEND Family Medicine
DX: G45.9 Transient cerebral ischemic attack, unspecified (principal); I65.22 Occlusion and stenosis of left carotid artery; I10 Essential (primary) hypertension; N40.0 Benign prostatic hyperplasia without lower urinary tract symptoms; E03.9 Hypothyroidism, unspecified; Z20.822 Contact with and (suspected) exposure to COVID-19; Z88.8 Allergy status to other drugs, medicaments and biological substances; Z91.041 Radiographic dye allergy status; Z79.899 Other long term (current) drug therapy; Z86.73 Personal history of transient ischemic attack (TIA), and cerebral infarction without residual deficits; Z98.890 Other specified postprocedural states
CPT/HCPCS: 36415; 70450; 80048; 81003; 82550; 84484; 85025; 85610; 85730; 93005; 93010; 93306; 93880; 99285-25; A9270-GY; G0378; U0002

== ENCOUNTER 2020-09-02 17:44 | Observation (INO) | payer MEDICARE, BC ==
[2020-09-02 18:13] LABS: CHLORIDE,CL 104 mEq/L (98-106); SODIUM,NA 144 mEq/L (136-145)
[2020-09-02 18:14] LABS: PTT,PARTIAL THROMBOPLSTIN TIME 19.6 SEC (23.2-32.3)
--- NOTE | 2020-09-02 18:43 | EDM.PDOC ---
ED HPI GENERAL MEDICAL PROBLEM - General Chief Complaint: General Stated Complaint: weakness Time Seen by Provider: 09/02/20 18:10 Source of Information: Reports: Patient, Family (wfe), RN History Limitations: Reports: No Limitations - History of Present Illness INITIAL COMMENTS - FREE TEXT/NARRATIVE: States about 1530 he got to the BR by himself and he was having difficulty with his balance and had to have help from his Grazyna to get onto the toilet straight. She states then he tried to walk back to the chair and fell against the door frame on the left side and needed assistance to get back to his chair. states that he normally is able to do this by himself. Prior to that today had been well. She states that his speech was slightly slurred and she had to h ave him repeat things to understand him. She was going to bring him in per car but she was not able to get him out of the chair at this point. She feels that his speech is now back to baseline. He denies any facial drooping. Did have a headache to the back of his head earlier. No fever or chills. No change in urination. No constipation. LMP yesterday. He did have left endarterectomy on August 30, 2020 and is scheduled to return to possibly have the right one done as that one is 80% blocked later in August. He denies any pain at this time but does feel weak. Does normally ambulate per self with cane states that the last known well when he was up walking was approximately 1400. Onset: Today Onset Date: 09/02/20 Onset Time: 15:30 Duration: Improving - Related Data Allergies Allergy/AdvReac Type Severity Reaction Status Date / Time indomethacin [From Indocin] AdvReac Intermediate Lightheaded Verified 09/02/20 18:21 ness indomethacin sodium AdvReac Intermediate Lightheaded Verified 09/02/20 18:21 [From Indocin] ness dye Allergy Intermediate Itching Uncoded 09/02/20 18:21 Home Meds: Home Meds Simvastatin 10 mg PO BEDTIME 02/16/15 [History] Cholecalciferol (Vitamin D3) [Vitamin D3] 5,000 unit PO DAILY 08/21/15 [History] Levothyroxine Sodium [Tirosint] 112 mcg PO DAILY 08/21/15 [History] [place]-3 Fatty Acids [Fish Oil] 1 cap PO DAILY 08/21/15 [History] Ubidecarenone [Coq-10] 100 mg PO DAILY 08/21/15 [History] Amitriptyline [Elavil] 25 mg PO QAM 12/28/17 [History] Ascorbic Acid [Vitamin C] 1,000 mg PO DAILY 12/28/17 [History] Clopidogrel [Plavix] 75 mg PO DAILY 12/28/17 [History] Lisinopril 10 mg PO BID 12/28/17 [History] Amitriptyline [Elavil] 1.5 tab PO BEDTIME 11/17/19 [History] Folic Acid 0.4 mg PO DAILY 11/17/19 [History] Magnesium Oxide 250 mg PO DAILY 03/24/20 [History] Melatonin 15 mg PO DAILY 07/07/20 [History] Zinc 50 mg PO DAILY 07/07/20 [History] Aspirin [Ecotrin EC] 1 tab PO DAILY 09/02/20 [History] Meloxicam 1 tab PO DAILY 09/02/20 [History] Metoprolol Tartrate [Lopressor] 12.5 mg PO BID 09/02/20 [History] Past Medical History HEENT History: Reports: Cataract Cardiovascular History: Reports: Hypertension, Pacemaker Other Cardiovascular History: stent placement 10 years ago Genitourinary History: Reports: BPH Musculoskeletal History: Reports: Other (See Below) Other Musculoskeletal History: 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 Neurological History: Reports: CVA Other Neuro History: x2...October 11, 2015, 12/2019 Endocrine/Metabolic History: Reports: Hypothyroidism - Past Surgical History HEENT Surgical History: Reports: Cataract Surgery Other HEENT Surgeries/Procedures: bilateral cataract surgery Cardiovascular Surgical History: Reports: Carotid Endarterectomy (left side), Coronary Artery Stent Other Cardiovascular Surgeries/Procedures: pae maker placed GI Surgical History: Reports: Hernia, Inguinal Musculoskeletal Surgical History: Reports: Carpal Tunnel, Knee Replacement Other Musculoskeletal Surgeries/Procedures:: Right knee replacemen 2015. Social & Family History - Family History Family Medical History: No Pertinent Family History - Caffeine Use Caffeine Use: Reports: None - Living Situation & Occupation Living situation: Reports: , with Spouse Occupation: Employed ED ROS GENERAL - Review of Systems Review Of Systems: See Below Constitutional: Reports: Weakness. Denies: Fever, Chills HEENT: Reports: No Symptoms Respiratory: Denies: Shortness of Breath, Cough Cardiovascular: Reports: Edema (to lower legs bilaterally.). Denies: Chest Pain Endocrine: Reports: No Symptoms GI/Abdominal: Denies: Abdominal Pain, Constipation, Diarrhea : Reports: Frequency. Denies: Dysuria Musculoskeletal: Reports: No Symptoms Skin: Reports: No Symptoms Neurological: Reports: Weakness (to left arm from previous stroke.). Denies: Confusion, Headache Psychiatric: Reports: No Symptoms ED EXAM, GENERAL - Physical Exam Exam: See Below Exam Limited By: No Limitations General Appearance: Alert, No Apparent Distress Eye Exam: Bilateral Eye: PERRL Ears: Normal External Exam, Normal Canal, Normal TMs Throat/Mouth: Normal Inspection, Normal Oropharynx Head: Atraumatic, Normocephalic Neck: Normal Inspection, Supple, Non-Tender, Full Range of Motion Respiratory/Chest: No Respiratory Distress, Lungs Clear, Normal Breath Sounds, Chest Non-Tender Cardiovascular: Regular Rate, Rhythm GI/Abdominal: Normal Bowel Sounds, Soft, Non-Tender Back Exam: Normal Inspection Extremities: Normal Inspection, Normal Range of Motion, Non-Tender, Pedal Edema (2+ edema to the left leg, 1+ edema to the right leg.) Neurological: Alert, Oriented Skin Exam: Warm, Dry, Intact Course - Orders/Labs/Meds Orders: Active Orders 24 hr Category Date Time Status Head wo Cont [CT] Stat Exams 09/02/20 17:54 Taken INR,PT,PROTHROMBIN TIME [[facility]] Stat Lab 09/02/20 17:56 Received PTT,PARTIAL THROMBOPLSTIN TIME [COAG] Stat Lab 09/02/20 17:56 Received Labs: Laboratory Tests 09/02/20 09/02/20 09/02/20 Range/Units 17:56 17:56 18:21 WBC 5.9 (5.0-10.0) 10^3/uL RBC 3.69 L (4.50-6.00) 10^6/uL Hgb 12.1 L (14.0-18.0) g/dL Hct 35.9 L (40.0-54.0) % MCV 97.3 H (82.0-94.0) fL MCH 32.8 H (27.0-32.0) pg MCHC 33.7 (33.0-38.0) g/dL RDW Coeff of Li 12.9 (11.0-15.0) % Plt Count 169 (150-400) 10^3/uL Neut % (Auto) 51.3 (35-85) % Lymph % (Auto) 28.8 (10-55) % [place] % (Auto) 9.3 (0-16) % Eos % (Auto) 10.3 H (0-5) % Baso % (Auto) 0.3 (0-3) % Neut # (Auto) 3.04 (1.80-7.00) 10^3/uL Lymph # (Auto) 1.71 (1.00-4.80) 10^3/uL [place] # (Auto) 0.55 (0.00-0.80) 10^3/uL Eos # (Auto) 0.61 H (0.00-0.45) 10^3/uL Baso # (Auto) 0.02 10^3/uL Sodium 144 (136-145) mEq/L Potassium 4.0 (3.5-5.0) mEq/L Chloride 104 (98-106) mEq/L Carbon Dioxide 30 (21-32) mmol/L BUN 23 H (7-18) mg/dL Creatinine 1.4 H (0.7-1.3) mg/dL Est Cr Clr Drug Dosing TNP Estimated GFR (MDRD) 49 L (>=60) mL/min Glucose 119 H (75-99) mg/dL Calcium 9.7 (8.4-10.1) mg/dL Creatine Kinase 55 (35-232) U/L Troponin I < 0.017 (0.00-0.06) ng/mL Urine Color Light yellow (YELLOW) Urine Appearance Clear (CLEAR) Urine pH 7.0 (4.5-8.0) Ur Specific [place] 1.015 (1.003-1.020) Urine Protein Negative (NEGATIVE) mg/dL Urine Glucose (UA) Negative (NEGATIVE) mg/dL Urine Ketones Negative (NEGATIVE) mg/dL Urine Occult Blood Negative (NEGATIVE) Urine Nitrite Negative (NEGATIVE) Urine Bilirubin Negative (NEGATIVE) Urine Urobilinogen 0.2 (0.2-1.0) EU/dL Ur Leukocyte Esterase Negative (NEGATIVE) - Re-Assessments/Exams Free Text/Narrative Re-Assessment/Exam: 09/02/20 18:51 In to discuss the normal labs and the unchanged CT from the previous one. will admit to observation to monitor his weakness and have consult with PT. Departure - Departure Time of Disposition: 18:46 Disposition: Refer to Observation Condition: Fair Clinical Impression: TIA (transient ischemic attack) - Discharge Information *PRESCRIPTION DRUG MONITORING PROGRAM REVIEWED*: Not Applicable *COPY OF PRESCRIPTION DRUG MONITORING REPORT IN PATIENT [facility]: Not Applicable Referrals: Jason Segura MD [Primary Care Provider] - - Problem List & Annotations (1) TIA (transient ischemic attack) SNOMED Code(s): 316398924 Code(s): G45.9 - TRANSIENT CEREBRAL ISCHEMIC ATTACK, UNSPECIFIED Status: Acute Priority: High Current Visit: Yes - Problem List Review Problem List Initiated/Reviewed/Updated: Yes - My Orders Last 24 Hours: My Active Orders 09/02/20 17:54 Head wo Cont [CT] Stat 09/02/20 17:56 INR,PT,PROTHROMBIN TIME [[facility]] Stat PTT,PARTIAL THROMBOPLSTIN TIME [[facility]] Stat - Assessment/Plan Admission H&P: Please use this note as an admission H&P Last 24 Hours: My Active Orders 09/02/20 17:54 Head wo Cont [CT] Stat 09/02/20 17:56 INR,PT,PROTHROMBIN TIME [[facility]] Stat PTT,PARTIAL THROMBOPLSTIN TIME [COAG] Stat Plan: will admit to observation Dr. Harris with telemetry. Will monitor weakness and do neuro checks throughout the night. Will consult with PT in the AM for strengthening and ambulation to make sure it safe for him to return home. CT of head is unchanged from previous scan in July
[2020-09-02] MEDS ORDERED: Sodium Chloride 0.9% 10 ML Syringe FLUSH PRN (19:33)
[2020-09-02] MEDS ORDERED: Acetaminophen 325 MG Tab PO PRN (19:33)
[2020-09-02] MEDS: AMITRIPTYLINE 25 MG PO SCH (20:00)
[2020-09-02] MEDS: SIMVASTATIN 10 MG PO SCH (20:00)
[2020-09-02] MEDS: Enoxaparin 40 MG/0.4 ML Syringe SUBCUT SCH (20:44)
[2020-09-03] MEDS: Aspirin 81 MG Tab.EC PO SCH (07:47)
[2020-09-03] MEDS ORDERED: FOLIC ACID 0.4 MG PO SCH (08:00)
[2020-09-03] MEDS: Clopidogrel 75 MG Tab **PTOM PO SCH (08:27)
[2020-09-03] MEDS: MELOXICAM 15 MG PO SCH (08:35)
[2020-09-03] MEDS: LEVOTHYROXINE SODIUM 112 MCG PO SCH (08:36)
--- NOTE | 2020-09-03 13:12 | PCM.PN ---
- General Info Date of Service: 09/03/20 Admission Dx/Problem (Free Text): Weakness Concerns of TIA Subjective Update: Rich is a 75 yo male who was admitted to the hospital last evening for g eneralized weakness and concerns of TIA. Does have hx of CVA. At baseline he has some slurred speech and LUE weakness. He reports he was very weak, described as all over. Denies any weakness of extremities. He reports he did not feel he could walk to car so called EMS. His reported he was confused and had slurred speech, worse than normal. Upon arrival to ED, symptoms had improved. Head CT and lab workup were good. He was admitted for ongoing neuro checks. Did have left carotid endarterectomy last month. Is on plavix and aspirin. He reports feeling improved this morning. He feels weakness has improved. Denies any neuro changes from baseline. Denies any dizziness, headache, chest pain, shortness of breath. Functional Status: Reports: Pain Controlled, Tolerating Diet, Ambulating, Urinating. Denies: New Symptoms - Review of Systems General: Reports: Weakness (improved) HEENT: Reports: No Symptoms Pulmonary: Reports: No Symptoms Cardiovascular: Reports: No Symptoms Gastrointestinal: Reports: No Symptoms Genitourinary: Reports: Frequency Musculoskeletal: Reports: No Symptoms Skin: Reports: No Symptoms Neurological: Reports: No Symptoms, Pre-Existing Deficit Psychiatric: Reports: No Symptoms - Patient Data Vitals - Most Recent: Last Vital Signs Temp 97.7 F 09/03/20 11:48 Pulse 60 09/03/20 11:48 Resp 18 09/03/20 11:48 BP 115/68 09/03/20 11:48 Pulse Ox 93 L 09/03/20 11:48 Weight - Most Recent: 248 lb 1.6 oz I&O - Last 24 Hours: Intake & Output 09/02/20 09/03/20 09/03/20 22:59 06:59 14:59 Intake Total 265 300 Output Total 850 1200 Balance -585 -900 Lab Results Last 24 Hours: Laboratory Results - last 24 hr 09/02/20 09/02/20 09/02/20 Range/Units 17:56 17:56 17:56 WBC 5.9 (5.0-10.0) 10^3/uL RBC 3.69 L (4.50-6.00) 10^6/uL Hgb 12.1 L (14.0-18.0) g/dL Hct 35.9 L (40.0-54.0) % MCV 97.3 H (82.0-94.0) fL MCH 32.8 H (27.0-32.0) pg MCHC 33.7 (33.0-38.0) g/dL RDW Coeff of Li 12.9 (11.0-15.0) % Plt Count 169 (150-400) 10^3/uL Neut % (Auto) 51.3 (35-85) % Lymph % (Auto) 28.8 (10-55) % [place] % (Auto) 9.3 (0-16) % Eos % (Auto) 10.3 H (0-5) % Baso % (Auto) 0.3 (0-3) % Neut # (Auto) 3.04 (1.80-7.00) 10^3/uL Lymph # (Auto) 1.71 (1.00-4.80) 10^3/uL [place] # (Auto) 0.55 (0.00-0.80) 10^3/uL Eos # (Auto) 0.61 H (0.00-0.45) 10^3/uL Baso # (Auto) 0.02 10^3/uL PT 10.4 (9.7-12.3) SEC INR 0.95 (0.92-1.18) APTT 19.6 L (23.2-32.3) SEC Sodium 144 (136-145) mEq/L Potassium 4.0 (3.5-5.0) mEq/L Chloride 104 (98-106) mEq/L Carbon Dioxide 30 (21-32) mmol/L BUN 23 H (7-18) mg/dL Creatinine 1.4 H (0.7-1.3) mg/dL Est Cr Clr Drug Dosing TNP Estimated GFR (MDRD) 49 L (>=60) mL/min Glucose 119 H (75-99) mg/dL Calcium 9.7 (8.4-10.1) mg/dL Creatine Kinase 55 (35-232) U/L Troponin I < 0.017 (0.00-0.06) ng/mL Urine Color (YELLOW) Urine Appearance (CLEAR) Urine pH (4.5-8.0) Ur Specific [place] (1.003-1.020) Urine Protein (NEGATIVE) mg/dL Urine Glucose (UA) (NEGATIVE) mg/dL Urine Ketones (NEGATIVE) mg/dL Urine Occult Blood (NEGATIVE) Urine Nitrite (NEGATIVE) Urine Bilirubin (NEGATIVE) Urine Urobilinogen (0.2-1.0) EU/dL Ur Leukocyte Esterase (NEGATIVE) 09/02/20 Range/Units 18:21 WBC (5.0-10.0) 10^3/uL RBC (4.50-6.00) 10^6/uL Hgb (14.0-18.0) g/dL Hct (40.0-54.0) % MCV (82.0-94.0) fL MCH (27.0-32.0) pg MCHC (33.0-38.0) g/dL RDW Coeff of Li (11.0-15.0) % Plt Count (150-400) 10^3/uL Neut % (Auto) (35-85) % Lymph % (Auto) (10-55) % [place] % (Auto) (0-16) % Eos % (Auto) (0-5) % Baso % (Auto) (0-3) % Neut # (Auto) (1.80-7.00) 10^3/uL Lymph # (Auto) (1.00-4.80) 10^3/uL [place] # (Auto) (0.00-0.80) 10^3/uL Eos # (Auto) (0.00-0.45) 10^3/uL Baso # (Auto) 10^3/uL PT (9.7-12.3) SEC INR (0.92-1.18) APTT (23.2-32.3) SEC Sodium (136-145) mEq/L Potassium (3.5-5.0) mEq/L Chloride (98-106) mEq/L Carbon Dioxide (21-32) mmol/L BUN (7-18) mg/dL Creatinine (0.7-1.3) mg/dL Est Cr Clr Drug Dosing Estimated GFR (MDRD) (>=60) mL/min Glucose (75-99) mg/dL Calcium (8.4-10.1) mg/dL Creatine Kinase (35-232) U/L Troponin I (0.00-0.06) ng/mL Urine Color Light yellow (YELLOW) Urine Appearance Clear (CLEAR) Urine pH 7.0 (4.5-8.0) Ur Specific [place] 1.015 (1.003-1.020) Urine Protein Negative (NEGATIVE) mg/dL Urine Glucose (UA) Negative (NEGATIVE) mg/dL Urine Ketones Negative (NEGATIVE) mg/dL Urine Occult Blood Negative (NEGATIVE) Urine Nitrite Negative (NEGATIVE) Urine Bilirubin Negative (NEGATIVE) Urine Urobilinogen 0.2 (0.2-1.0) EU/dL Ur Leukocyte Esterase Negative (NEGATIVE) Med Orders - Current: Current Medications Acetaminophen (Tylenol) 650 mg PO Q4H PRN PRN Reason: Pain (Mild 1-3)/fever Amitriptyline HCl (Elavil) 25 mg PO QAM [facility] Last Admin: 09/03/20 08:34 Dose: 25 mg Documented by: Amitriptyline HCl (Elavil) 37.5 mg PO BEDTIME [facility] Aspirin (Halfprin) 81 mg PO DAILY [facility] Last Admin: 09/03/20 07:47 Dose: 81 mg Documented by: Clopidogrel Bisulfate (Plavix) 75 mg PO DAILY [facility] Last Admin: 09/03/20 08:27 Dose: 75 mg Documented by: Enoxaparin Sodium (Lovenox) 40 mg SUBCUT Q24H [facility] Last Admin: 09/02/20 20:44 Dose: 40 mg Documented by: Lisinopril (Prinivil) 5 mg PO DAILY [facility] Last Admin: 09/03/20 08:34 Dose: 5 mg Documented by: Magnesium Oxide (Magnesium Oxide) 250 mg PO DAILY [facility] Last Admin: 09/03/20 07:48 Dose: 250 mg Documented by: Metoprolol Tartrate (Lopressor) 12.5 mg PO BID [facility] Last Admin: 09/03/20 08:31 Dose: 12.5 mg Documented by: Non-Formulary Medication (Folic Acid [Folic Acid]) 0.4 mg PO DAILY [facility] Levothyroxine Sodium 112 Mcg Tab Ptom* * 0 mcg PO ACBREAKFAST [facility] Last Admin: 09/03/20 08:36 Dose: 1 mcg Documented by: Meloxicam [Meloxicam (] 15mg Tab Ptom) 0 tab PO DAILY [facility] Last Admin: 09/03/20 08:35 Dose: 1 tab Documented by: Simvastatin (Zocor) 10 mg PO BEDTIME [facility] Sodium Chloride (Saline Flush) 10 ml FLUSH ASDIRECTED PRN PRN Reason: Keep Vein Open Discontinued Medications Amitriptyline HCl (Elavil) 37.5 mg PO BEDTIME [facility] Simvastatin (Zocor) 10 mg PO BEDTIME [facility] - Exam Quality Assessment: DVT Prophylaxis General: Alert, Oriented, No Acute Distress Neck: Supple Lungs: Normal Respiratory Effort, Crackles (bases) Cardiovascular: Regular Rate, Irregular Rhythm GI/Abdominal Exam: Normal Bowel Sounds, Soft, Non-Tender, No Organomegaly, No Distention, No Abnormal Bruit, No Mass Back Exam: Normal Inspection, Full Range of Motion Extremities: Normal Inspection, Normal Capillary Refill, Pedal Edema (2+ pitting), Limited Range of Motion (LUE) Neurological: No New Focal Deficit Psy/Mental Status: Alert, Normal Affect, Normal Mood - Patient Data Lab Results Last 24 hrs: Laboratory Results - last 24 hr 09/02/20 09/02/20 09/02/20 Range/Units 17:56 17:56 17:56 WBC 5.9 (5.0-10.0) 10^3/uL RBC 3.69 L (4.50-6.00) 10^6/uL Hgb 12.1 L (14.0-18.0) g/dL Hct 35.9 L (40.0-54.0) % MCV 97.3 H (82.0-94.0) fL MCH 32.8 H (27.0-32.0) pg MCHC 33.7 (33.0-38.0) g/dL RDW Coeff of Li 12.9 (11.0-15.0) % Plt Count 169 (150-400) 10^3/uL Neut % (Auto) 51.3 (35-85) % Lymph % (Auto) 28.8 (10-55) % [place] % (Auto) 9.3 (0-16) % Eos % (Auto) 10.3 H (0-5) % Baso % (Auto) 0.3 (0-3) % Neut # (Auto) 3.04 (1.80-7.00) 10^3/uL Lymph # (Auto) 1.71 (1.00-4.80) 10^3/uL [place] # (Auto) 0.55 (0.00-0.80) 10^3/uL Eos # (Auto) 0.61 H (0.00-0.45) 10^3/uL Baso # (Auto) 0.02 10^3/uL PT 10.4 (9.7-12.3) SEC INR 0.95 (0.92-1.18) APTT 19.6 L (23.2-32.3) SEC Sodium 144 (136-145) mEq/L Potassium 4.0 (3.5-5.0) mEq/L Chloride 104 (98-106) mEq/L Carbon Dioxide 30 (21-32) mmol/L BUN 23 H (7-18) mg/dL Creatinine 1.4 H (0.7-1.3) mg/dL Est Cr Clr Drug Dosing TNP Estimated GFR (MDRD) 49 L (>=60) mL/min Glucose 119 H (75-99) mg/dL Calcium 9.7 (8.4-10.1) mg/dL Creatine Kinase 55 (35-232) U/L Troponin I < 0.017 (0.00-0.06) ng/mL Urine Color (YELLOW) Urine Appearance (CLEAR) Urine pH (4.5-8.0) Ur Specific [place] (1.003-1.020) Urine Protein (NEGATIVE) mg/dL Urine Glucose (UA) (NEGATIVE) mg/dL Urine Ketones (NEGATIVE) mg/dL Urine Occult Blood (NEGATIVE) Urine Nitrite (NEGATIVE) Urine Bilirubin (NEGATIVE) Urine Urobilinogen (0.2-1.0) EU/dL Ur Leukocyte Esterase (NEGATIVE) 09/02/20 Range/Units 18:21 WBC (5.0-10.0) 10^3/uL RBC (4.50-6.00) 10^6/uL Hgb (14.0-18.0) g/dL Hct (40.0-54.0) % MCV (82.0-94.0) fL MCH (27.0-32.0) pg MCHC (33.0-38.0) g/dL RDW Coeff of Li (11.0-15.0) % Plt Count (150-400) 10^3/uL Neut % (Auto) (35-85) % Lymph % (Auto) (10-55) % [place] % (Auto) (0-16) % Eos % (Auto) (0-5) % Baso % (Auto) (0-3) % Neut # (Auto) (1.80-7.00) 10^3/uL Lymph # (Auto) (1.00-4.80) 10^3/uL [place] # (Auto) (0.00-0.80) 10^3/uL Eos # (Auto) (0.00-0.45) 10^3/uL Baso # (Auto) 10^3/uL PT (9.7-12.3) SEC INR (0.92-1.18) APTT (23.2-32.3) SEC Sodium (136-145) mEq/L Potassium (3.5-5.0) mEq/L Chloride (98-106) mEq/L Carbon Dioxide (21-32) mmol/L BUN (7-18) mg/dL Creatinine (0.7-1.3) mg/dL Est Cr Clr Drug Dosing Estimated GFR (MDRD) (>=60) mL/min Glucose (75-99) mg/dL Calcium (8.4-10.1) mg/dL Creatine Kinase (35-232) U/L Troponin I (0.00-0.06) ng/mL Urine Color Light yellow (YELLOW) Urine Appearance Clear (CLEAR) Urine pH 7.0 (4.5-8.0) Ur Specific [place] 1.015 (1.003-1.020) Urine Protein Negative (NEGATIVE) mg/dL Urine Glucose (UA) Negative (NEGATIVE) mg/dL Urine Ketones Negative (NEGATIVE) mg/dL Urine Occult Blood Negative (NEGATIVE) Urine Nitrite Negative (NEGATIVE) Urine Bilirubin Negative (NEGATIVE) Urine Urobilinogen 0.2 (0.2-1.0) EU/dL Ur Leukocyte Esterase Negative (NEGATIVE) Result Diagrams: 09/02/20 17:56 09/02/20 17:56 Sepsis Event Note - Evaluation Sepsis Screening Result: No Definite Risk - Focused Exam Vital Signs: Vital Signs Temp Pulse Pulse Resp BP BP Pulse Ox 09/03/20 11:48 97.7 F 60 18 115/68 93 L 09/03/20 08:34 167/69 H 09/03/20 08:31 63 167/69 H 09/03/20 08:00 97.2 F 63 18 167/69 H 94 L 09/03/20 04:00 98.1 F 61 18 138/72 94 L - Problem List & Annotations (1) TIA (transient ischemic attack) SNOMED Code(s): 533836221 Code(s): G45.9 - TRANSIENT CEREBRAL ISCHEMIC ATTACK, UNSPECIFIED Status: Acute Priority: High Current Visit: Yes - Problem List Review Problem List Initiated/Reviewed/Updated: Yes - My Orders Last 24 Hours: My Active Orders 09/03/20 10:37 Chest 2V [CR] Stat - Assessment Assessment:: TIA - Plan Plan:: Patient doing well this morning. No focal neurologic deficits. He denies any concerns. VS stable overnight except BP elevated. Continue with plavix and aspirin. Had recent carotid US revealing left stenosis for which he is status post endarterectomy. Is scheduled to possibly have right side done. Recent echo 07/2020. Follows with cardiology. Patient unable to have MRI due to pacemaker. Will continue with meds at this time. PT to see patient today to evaluate for home safety. Anticipate discharge tomorrow.
[2020-09-03] MEDS: AMITRIPTYLINE 25 MG PO SCH (19:45)
[2020-09-03] MEDS: SIMVASTATIN 10 MG PO SCH (19:46)
[2020-09-03] MEDS ORDERED: AMITRIPTYLINE 25 MG PO SCH (20:00)
[2020-09-03] MEDS ORDERED: SIMVASTATIN 10 MG PO SCH (20:00)
[2020-09-03] MEDS: Enoxaparin 40 MG/0.4 ML Syringe SUBCUT SCH (20:06)
[2020-09-04] MEDS: LEVOTHYROXINE SODIUM 112 MCG PO SCH (06:06)
[2020-09-04] MEDS ORDERED: PANTOPRAZOLE 20 MG PO SCH (07:00)
[2020-09-04] MEDS: Aspirin 81 MG Tab.EC PO SCH (07:46)
[2020-09-04] MEDS: MELOXICAM 15 MG PO SCH (07:47)
[2020-09-04] MEDS: Clopidogrel 75 MG Tab **PTOM PO SCH (07:47)
--- NOTE | 2020-09-04 09:00 | PCM.DCSUM1 ---
Discharge Summary - Hospital Course HPI Initial Comments: Rich is a 75 yo male who was admitted to the hospital 09/02/2020 for possible TIA. He was kept observation for ongoing neuro checks. He had no neurologic change throughout hospitalization. Remained at baseline with previous deficits. He reported his weakness was improved on day 1. Labs stable. Head CT negative. Had already had recent carotid US and is status post left carotid endarterectomy. Did have recent echo as well with last hospitalization. PT did see patient and felt he was safe for discharge home with . He will be discharged home in satisfactory condition. He is advised to follow up with his PCP as scheduled for recheck. - Discharge Data Discharge Date: 09/04/20 Discharge Disposition: Home, Self-Care 01 Condition: Good - Referral to Home Health Primary Care Physician: Jason Segura MD - Patient Summary/Data Consults: Consultations 09/02/20 19:33 PT Evaluation and Treatment [CONS] Routine - Patient Instructions Diet: Usual Diet as Tolerated Activity: As Tolerated - Discharge Plan *PRESCRIPTION DRUG MONITORING PROGRAM REVIEWED*: Not Applicable *COPY OF PRESCRIPTION DRUG MONITORING REPORT IN PATIENT [place]IL[place]: Not Applicable Home Medications: Home Meds Simvastatin 10 mg PO BEDTIME 02/16/15 [History] Cholecalciferol (Vitamin D3) [Vitamin D3] 5,000 unit PO DAILY 08/21/15 [History] Levothyroxine Sodium [Tirosint] 112 mcg PO DAILY 08/21/15 [History] Napavine-3 Fatty Acids [Fish Oil] 1 cap PO DAILY 08/21/15 [History] Ubidecarenone [Coq-10] 100 mg PO DAILY 08/21/15 [History] Amitriptyline [Elavil] 25 mg PO QAM 12/28/17 [History] Ascorbic Acid [Vitamin C] 1,000 mg PO DAILY 12/28/17 [History] Clopidogrel [Plavix] 75 mg PO DAILY 12/28/17 [History] Lisinopril 5 mg PO BID 12/28/17 [History] Amitriptyline [Elavil] 1.5 tab PO BEDTIME 11/17/19 [History] Folic Acid 0.4 mg PO DAILY 11/17/19 [History] Magnesium Oxide 250 mg PO DAILY 03/24/20 [History] Melatonin 15 mg PO DAILY 07/07/20 [History] Zinc 50 mg PO DAILY 07/07/20 [History] Aspirin [Ecotrin EC] 1 tab PO DAILY 09/02/20 [History] Meloxicam 1 tab PO DAILY 09/02/20 [History] Metoprolol Tartrate [Lopressor] 12.5 mg PO BID 09/02/20 [History] Pantoprazole Sodium [Protonix] 20 mg PO DAILY 09/03/20 [History] Forms: ED Department Discharge Referrals: Jason Segura MD [Primary Care Provider] - - Discharge Summary/Plan Comment DC Time >30 min.: No - General Info Date of Service: 09/04/20 Admission Dx/Problem (Free Text: Weakness Concerns of TIA Subjective Update: Rich is a 75 yo male who was admitted to the hospital for generalized weakness and concerns of TIA. Does have hx of CVA. At baseline he has some slurred speech and LUE weakness. He has had no new neuro changes. Is feeling well and denies complaints. Functional Status: Reports: Pain Controlled, Tolerating Diet, Ambulating, Urinating. Denies: New Symptoms - Review of Systems General: Reports: No Symptoms HEENT: Reports: No Symptoms Pulmonary: Reports: No Symptoms Cardiovascular: Reports: No Symptoms Gastrointestinal: Reports: No Symptoms Genitourinary: Reports: No Symptoms Musculoskeletal: Reports: No Symptoms Neurological: Reports: No Symptoms Psychiatric: Reports: No Symptoms - Patient Data Vitals - Most Recent: Last Vital Signs Temp 98.1 F 09/04/20 04:00 Pulse 62 09/04/20 07:47 Resp 18 09/04/20 04:00 BP 133/71 09/04/20 07:50 Pulse Ox 94 L 09/04/20 04:00 Weight - Most Recent: 245 lb 14.4 oz I&O - Last 24 hours: Intake & Output 09/03/20 09/04/20 09/04/20 22:59 06:59 14:59 Intake Total 1100 100 Output Total 1200 1850 Balance -100 -1750 Med Orders - Current: Current Medications Acetaminophen (Tylenol) 650 mg PO Q4H PRN PRN Reason: Pain (Mild 1-3)/fever Amitriptyline HCl (Elavil) 25 mg PO QAM [facility] Last Admin: 09/04/20 07:48 Dose: 25 mg Documented by: Amitriptyline HCl (Elavil) 37.5 mg PO BEDTIME [facility] Last Admin: 09/03/20 20:03 Dose: 37.5 mg Documented by: Aspirin (Halfprin) 81 mg PO DAILY [facility] Last Admin: 09/04/20 07:46 Dose: 81 mg Documented by: Clopidogrel Bisulfate (Plavix) 75 mg PO DAILY [facility] Last Admin: 09/04/20 07:47 Dose: 75 mg Documented by: Enoxaparin Sodium (Lovenox) 40 mg SUBCUT Q24H [facility] Last Admin: 09/03/20 20:06 Dose: 40 mg Documented by: Lisinopril (Prinivil) 5 mg PO DAILY [facility] Last Admin: 09/04/20 07:50 Dose: 5 mg Documented by: Magnesium Oxide (Magnesium Oxide) 250 mg PO DAILY [facility] Last Admin: 09/04/20 07:46 Dose: 250 mg Documented by: Metoprolol Tartrate (Lopressor) 12.5 mg PO BID [facility] Last Admin: 09/04/20 07:47 Dose: 12.5 mg Documented by: Levothyroxine Sodium 112 Mcg Tab Ptom* * 0 mcg PO ACBREAKFAST [facility] Last Admin: 09/04/20 06:06 Dose: 112 mcg Documented by: Meloxicam [Meloxicam (] 15mg Tab Ptom) 0 tab PO DAILY [facility] Last Admin: 09/04/20 07:47 Dose: 15 tab Documented by: Pantoprazole 20mg (Tab Ptom) 0 each PO ACBREAKFAST [facility] Last Admin: 09/04/20 06:06 Dose: 1 each Documented by: Simvastatin (Zocor) 10 mg PO BEDTIME [facility] Last Admin: 09/03/20 20:03 Dose: 10 mg Documented by: Sodium Chloride (Saline Flush) 10 ml FLUSH ASDIRECTED PRN PRN Reason: Keep Vein Open Discontinued Medications Amitriptyline HCl (Elavil) 37.5 mg PO BEDTIME [facility] Last Admin: 09/02/20 20:00 Dose: 37.5 mg Documented by: Non-Formulary Medication (Folic Acid [Folic Acid]) 0.4 mg PO DAILY [facility] Last Admin: 09/03/20 14:24 Dose: Not Given Documented by: Simvastatin (Zocor) 10 mg PO BEDTIME [facility] Last Admin: 09/02/20 20:00 Dose: 10 mg Documented by: - Exam Quality Assessment: Reports: DVT Prophylaxis General: Reports: Alert, Oriented, No Acute Distress HEENT: Reports: Pupils Equal, Pupils Reactive, EOMI, Mucous Membr. Moist/[place] Neck: Reports: Supple Lungs: Reports: Clear to Auscultation, Normal Respiratory Effort Cardiovascular: Reports: Regular Rate, Regular Rhythm, Murmurs GI/Abdominal Exam: Normal Bowel Sounds, Soft, Non-Tender, No Organomegaly, No Distention, No Abnormal Bruit, No Mass, Pelvis Stable Back Exam: Reports: Normal Inspection, Full Range of Motion Extremities: Normal Inspection, Normal Capillary Refill, Other (LUE weakness, baseline) Neurological: Reports: No New Focal Deficit, Normal Speech Psy/Mental Status: Reports: Alert, Normal Affect, Normal Mood
[2020-09-04 13:32] VITALS: BP 127/72; PULSE 60
== END 2020-09-04 13:20 | disposition home or self-care (01) ==
LOC: CC.ED 17:44 → UNDOADMOB 18:57 → CC.MS 18:57 → CC.ED 19:03 → CC.MS 19:10
PROVIDERS: ADMIT Physician Assistant Medical; ATTEND Family Medicine
DX: R53.1 Weakness (principal); I10 Essential (primary) hypertension; Z95.0 Presence of cardiac pacemaker; E03.9 Hypothyroidism, unspecified; N40.0 Benign prostatic hyperplasia without lower urinary tract symptoms; Z95.5 Presence of coronary angioplasty implant and graft; Z88.8 Allergy status to other drugs, medicaments and biological substances; Z91.041 Radiographic dye allergy status; Z79.890 Hormone replacement therapy; Z79.899 Other long term (current) drug therapy; Z98.890 Other specified postprocedural states; R51.9 Headache, unspecified
CPT/HCPCS: 36415; 70450; 71046; 80048; 81003; 82550; 84484; 85025; 85610; 85730; 93005; 93010; 96372; 97161-GP; 99217; 99220; 99225; 99285-25; A9270-GY; G0378; J1650

== ENCOUNTER 2021-02-18 10:50 | Inpatient (IN) | payer MEDICARE, BC ==
[2021-02-18 11:14] LABS: CHLORIDE,CL 99 mEq/L (98-106); SODIUM,NA 138 mEq/L (136-145)
[2021-02-18 11:15] LABS: PTT,PARTIAL THROMBOPLSTIN TIME 22.1 SEC (23.2-32.3)
--- NOTE | 2021-02-18 11:49 | EDM.PDOC ---
ED HPI GENERAL MEDICAL PROBLEM - General Chief Complaint: General Stated Complaint: Near Syncope Time Seen by Provider: 02/18/21 11:10 Source of Information: Reports: Patient, Family (), RN History Limitations: Reports: No Limitations - History of Present Illness INITIAL COMMENTS - FREE TEXT/NARRATIVE: reports that when he got up during the night to go to the bathroom he was more SOB when he came back to the chair. This morning when she helped him to the bathroom he became very dizzy and lightheaded and when he got back to the chair she states that he "fell" into the chair and quit breathing and then he breathed for a short time then quit breathing a second time and then she called EMS. He is coughing up thick brown/galvin sputum. relates that February 03 he was put on zpak and prednisone for [address] Segura. When he came to he was his normal self and answered her questions. She did not see any seizure activity at the time. He was not incontinent. Now he states that he feels weak. He denies feeling SOB at this time. He does use oxygen all the time at home. Onset: Today Treatments MANAGEMENT ASSISTANT: Reports: Other (see below) Other Treatments MANAGEMENT ASSISTANT: zofran - Related Data Allergies Allergy/AdvReac Type Severity Reaction Status Date / Time indomethacin [From Indocin] AdvReac Intermediate Lightheaded Verified 02/18/21 11:16 ness indomethacin sodium AdvReac Intermediate Lightheaded Verified 02/18/21 11:16 [From Indocin] ness dye Allergy Intermediate Itching Uncoded 02/18/21 11:16 Home Meds: Home Meds Simvastatin 10 mg PO BEDTIME 02/16/15 [History] Cholecalciferol (Vitamin D3) [Vitamin D3] 5,000 unit PO DAILY 08/21/15 [History] Levothyroxine Sodium [Tirosint] 112 mcg PO DAILY 08/21/15 [History] [place]-3 Fatty Acids [Fish Oil] 1 cap PO DAILY 08/21/15 [History] Ubidecarenone [Coq-10] 100 mg PO DAILY 08/21/15 [History] Amitriptyline [Elavil] 25 mg PO QAM 12/28/17 [History] Ascorbic Acid [Vitamin C] 1,000 mg PO DAILY 12/28/17 [History] Clopidogrel [Plavix] 75 mg PO DAILY 12/28/17 [History] Lisinopril 5 mg PO DAILY 12/28/17 [History] Amitriptyline [Elavil] 1.5 tab PO BEDTIME 11/17/19 [History] Folic Acid 0.4 mg PO DAILY 11/17/19 [History] Magnesium Oxide 250 mg PO DAILY 03/24/20 [History] Melatonin 15 mg PO DAILY 07/07/20 [History] Zinc 50 mg PO DAILY 07/07/20 [History] Aspirin [Ecotrin EC] 1 tab PO DAILY 09/02/20 [History] Meloxicam 1 tab PO DAILY 09/02/20 [History] Metoprolol Tartrate [Lopressor] 12.5 mg PO BID 09/02/20 [History] Pantoprazole Sodium [Protonix] 20 mg PO DAILY 09/03/20 [History] Phentermine HCl 15 mg PO DAILY 02/18/21 [History] Past Medical History HEENT History: Reports: Cataract Cardiovascular History: Reports: Hypertension, Pacemaker Other Cardiovascular History: stent placement 10 years ago Genitourinary History: Reports: BPH Musculoskeletal History: Reports: Other (See Below) Other Musculoskeletal History: 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 Neurological History: Reports: CVA Other Neuro History: x2...October 11, 2015, 12/2019 Endocrine/Metabolic History: Reports: Hypothyroidism - Past Surgical History HEENT Surgical History: Reports: Cataract Surgery Other HEENT Surgeries/Procedures: bilateral cataract surgery Cardiovascular Surgical History: Reports: Carotid Endarterectomy, Coronary Artery Stent Other Cardiovascular Surgeries/Procedures: pace maker placed 2019 GI Surgical History: Reports: Hernia, Inguinal Musculoskeletal Surgical History: Reports: Carpal Tunnel, Knee Replacement Other Musculoskeletal Surgeries/Procedures:: [facility]. Social & Family History - Family History Family Medical History: No Pertinent Family History - Tobacco Use Tobacco Use Status *Q: Never Tobacco User Second Hand Smoke Exposure: No - Caffeine Use Caffeine Use: Reports: Coffee - Alcohol Use Days Per Week of Alcohol Use: 7 Number of Drinks Per Day: 1 Total Drinks Per Week: 7 - Recreational Drug Use Recreational Drug Use: No - Living Situation & Occupation Living situation: Reports: , with Spouse Occupation: Employed ED ROS GENERAL - Review of Systems Review Of Systems: See Below Constitutional: Denies: Fever, Chills HEENT: Reports: No Symptoms Respiratory: Reports: Shortness of Breath, Cough Cardiovascular: Reports: Edema. Denies: Chest Pain GI/Abdominal: Reports: No Symptoms Musculoskeletal: Reports: No Symptoms Skin: Reports: Bruising (on the top of the back of his head.) Neurological: Reports: Weakness. Denies: Headache ED EXAM, GENERAL - Physical Exam Exam: See Below Exam Limited By: No Limitations General Appearance: Alert, WD/WN, No Apparent Distress Ears: Normal External Exam, Normal Canal, Normal TMs Throat/Mouth: Normal Inspection, Normal Oropharynx Head: Atraumatic, Normocephalic Neck: Normal Inspection, Supple Respiratory/Chest: No Respiratory Distress, Decreased Breath Sounds Cardiovascular: Normal Peripheral Pulses, Regular Rate, Rhythm GI/Abdominal: Normal Bowel Sounds, Soft, Non-Tender Extremities: Normal Inspection, Pedal Edema (trace bilaterally.) Neurological: Alert, Oriented Psychiatric: Normal Affect Skin Exam: Warm, Dry, Intact Course - Vital Signs Last Recorded V/S: Last Vital Signs Temp 97.2 F 02/18/21 15:49 Pulse 76 02/18/21 15:49 Resp 18 02/18/21 15:49 BP 104/68 02/18/21 15:49 Pulse Ox 94 L 02/18/21 15:49 - Orders/Labs/Meds Orders: Active Orders 24 hr Category Date Time Status Chest 1V Frontal [CR] Stat Exams 02/18/21 11:07 Taken Head wo Cont [CT] Urgent Exams 02/18/21 11:38 Taken CULTURE SPUTUM + SMEAR [RM] Stat Lab 02/18/21 11:45 Results Medication Orders Amitriptyline HCl (Amitriptyline 25 Mg Tab) 37.5 mg PO BEDTIME [facility] Amitriptyline HCl (Amitriptyline 25 Mg Tab) 25 mg PO QAM PENDING SALE TO [facility] Aspirin (Aspirin 81 Mg Tab.Ec) 81 mg PO DAILY PENDING SALE TO [facility] Ceftriaxone Sodium (Ceftriaxone 1 Gm Vial) 1 gm IVPUSH Q24H PENDING SALE TO [facility] Clopidogrel Bisulfate (Clopidogrel 75 Mg Tab) 75 mg PO DAILY PENDING SALE TO [facility] Enoxaparin Sodium (Enoxaparin 40 Mg/0.4 Ml Syringe) 40 mg SUBCUT Q24H PENDING SALE TO [facility] Folic Acid (Folic Acid 1 Mg Tab) 0.5 mg PO DAILY PENDING SALE TO [facility] Levothyroxine Sodium (Levothyroxine 112 Mcg Tab) 112 mcg PO ACBREAKFAST PENDING SALE TO [facility] Lisinopril (Lisinopril 5 Mg Tab) 5 mg PO DAILY [facility] Magnesium Oxide (Magnesium Oxide 250 Mg Tab) 250 mg PO DAILY [facility] Meloxicam (Meloxicam 7.5 Mg Tab) 15 mg PO DAILY [facility] Metoprolol Tartrate (Metoprolol Tartrate 25 Mg Tab) 12.5 mg PO BID [facility] Pantoprazole Sodium (Pantoprazole 40 Mg Vial) 40 mg IVPUSH Q12H [facility] Simvastatin (Simvastatin 10 Mg Tab) 10 mg PO BEDTIME [facility]A Sodium Chloride (Sodium Chloride 0.9% 10 Ml Syringe) 10 ml FLUSH ASDIRECTED PRN PRN Reason: Keep Vein Open Labs: Laboratory Tests 02/18/21 02/18/21 02/18/21 Range/Units 10:57 10:57 10:57 WBC 9.5 (4.0-11.0) 10^3/uL RBC 3.83 L (4.50-6.00) x10^6/uL Hgb 12.4 L (14.0-18.0) g/dL Hct 36.6 L (42.0-52.0) % MCV 95.6 (83.0-97.0) fL MCH 32.4 H (27.0-32.0) pg MCHC 33.9 (32.0-36.0) g/dL RDW Coeff of Li 13.3 (11.0-15.0) % Plt Count 115 L (150-400) 10^3/uL Immature Gran % (Auto) 0.3 (0.0-4.9) % Neut % (Auto) 77.8 H (41-71) % Lymph % (Auto) 13.3 L (24-44) % [place] % (Auto) 6.0 (0-10) % Eos % (Auto) 2.3 (0-6) % Baso % (Auto) 0.3 (0-1) % Neut # (Auto) 7.41 (1.80-8.00) x10^3/uL Lymph # (Auto) 1.27 (0.60-5.00) 10^3/uL [place] # (Auto) 0.57 (0.00-1.50) 10^3/uL Eos # (Auto) 0.22 (0.00-1.50) 10^3/uL Baso # (Auto) 0.03 (0.00-0.50) 10^3/uL Immature Gran # (Auto) 0.03 (0.00-0.49) 10^3/uL PT 10.8 (9.7-12.3) SEC INR 0.99 (0.92-1.18) APTT 22.1 L (23.2-32.3) SEC Sodium 138 (136-145) mEq/L Potassium 4.3 (3.5-5.0) mEq/L Chloride 99 (98-106) mEq/L Carbon Dioxide 27 (21-32) mmol/L BUN 20 H (7-18) mg/dL Creatinine 1.4 H (0.7-1.3) mg/dL Est Cr Clr Drug Dosing TNP Estimated GFR (MDRD) 49 L (>=60) mL/min Glucose 145 H (75-99) mg/dL Calcium 9.0 (8.4-10.1) mg/dL Magnesium 1.9 (1.8-2.4) mg/dL Total Bilirubin 0.6 (0.0-1.0) mg/dL AST 23 (15-37) U/L ALT 36 (12-78) U/L Alkaline Phosphatase 85 (46-116) U/L Lactate Dehydrogenase 224 H (100-190) U/L Creatine Kinase 49 (35-232) U/L Troponin I High Sens (<=76) pg/mL Total Protein 7.9 (6.4-8.2) g/dL Albumin 3.7 (3.4-5.0) g/dL Lipase 181 (73-393) U/L 02/18/21 Range/Units 11:45 WBC (4.0-11.0) 10^3/uL RBC (4.50-6.00) x10^6/uL Hgb (14.0-18.0) g/dL Hct (42.0-52.0) % MCV (83.0-97.0) fL MCH (27.0-32.0) pg MCHC (32.0-36.0) g/dL RDW Coeff of Li (11.0-15.0) % Plt Count (150-400) 10^3/uL Immature Gran % (Auto) (0.0-4.9) % Neut % (Auto) (41-71) % Lymph % (Auto) (24-44) % [place] % (Auto) (0-10) % Eos % (Auto) (0-6) % Baso % (Auto) (0-1) % Neut # (Auto) (1.80-8.00) x10^3/uL Lymph # (Auto) (0.60-5.00) 10^3/uL [place] # (Auto) (0.00-1.50) 10^3/uL Eos # (Auto) (0.00-1.50) 10^3/uL Baso # (Auto) (0.00-0.50) 10^3/uL Immature Gran # (Auto) (0.00-0.49) 10^3/uL PT (9.7-12.3) SEC INR (0.92-1.18) APTT (23.2-32.3) SEC Sodium (136-145) mEq/L Potassium (3.5-5.0) mEq/L Chloride (98-106) mEq/L Carbon Dioxide (21-32) mmol/L BUN (7-18) mg/dL Creatinine (0.7-1.3) mg/dL Est Cr Clr Drug Dosing Estimated GFR (MDRD) (>=60) mL/min Glucose (75-99) mg/dL Calcium (8.4-10.1) mg/dL Magnesium (1.8-2.4) mg/dL Total Bilirubin (0.0-1.0) mg/dL AST (15-37) U/L ALT (12-78) U/L Alkaline Phosphatase (46-116) U/L Lactate Dehydrogenase (100-190) U/L Creatine Kinase (35-232) U/L Troponin I High Sens 108.9 H* (<=76) pg/mL Total Protein (6.4-8.2) g/dL Albumin (3.4-5.0) g/dL Lipase (73-393) U/L Meds: Medications Generic Name Dose Route Start Last Admin Trade Name Freq PRN Reason Stop Dose Admin Amitriptyline HCl 37.5 mg 02/18/21 20:00 Amitriptyline 25 Mg Tab PO BEDTIME ISAURA Amitriptyline HCl 25 mg 02/19/21 08:00 Amitriptyline 25 Mg Tab PO QAM [facility]A Aspirin 81 mg 02/19/21 08:00 Aspirin 81 Mg Tab.Ec PO DAILY PENDING SALE TO [facility] Ceftriaxone Sodium 1 gm 02/19/21 12:00 Ceftriaxone 1 Gm Vial IVPUSH Q24H PENDING SALE TO [facility] Clopidogrel Bisulfate 75 mg 02/19/21 08:00 Clopidogrel 75 Mg Tab PO DAILY PENDING SALE TO [facility] Enoxaparin Sodium 40 mg 02/18/21 20:00 Enoxaparin 40 Mg/0.4 Ml Syringe SUBCUT Q24H PENDING SALE TO [facility] Folic Acid 0.5 mg 02/19/21 08:00 Folic Acid 1 Mg Tab PO DAILY PENDING SALE TO [facility] Levothyroxine Sodium 112 mcg 02/19/21 07:00 Levothyroxine 112 Mcg Tab PO ACBREAKFAST PENDING SALE TO [facility] Lisinopril 5 mg 02/19/21 08:00 Lisinopril 5 Mg Tab PO DAILY PENDING SALE TO [facility] Magnesium Oxide 250 mg 02/19/21 08:00 Magnesium Oxide 250 Mg Tab PO DAILY PENDING SALE TO [facility] Meloxicam 15 mg 02/19/21 08:00 Meloxicam 7.5 Mg Tab PO DAILY PENDING SALE TO [facility] Metoprolol Tartrate 12.5 mg 02/18/21 20:00 Metoprolol Tartrate 25 Mg Tab PO BID PENDING SALE TO [facility] Pantoprazole Sodium 40 mg 02/18/21 20:00 Pantoprazole 40 Mg Vial IVPUSH Q12H PENDING SALE TO [facility] Simvastatin 10 mg 02/18/21 20:00 Simvastatin 10 Mg Tab PO BEDTIME PENDING SALE TO [facility] Sodium Chloride 10 ml 02/18/21 12:34 Sodium Chloride 0.9% 10 Ml Syringe FLUSH ASDIRECTED PRN Keep Vein Open Discontinued Medications Generic Name Dose Route Start Last Admin Trade Name Freq PRN Reason Stop Dose Admin Ceftriaxone Sodium 1 gm 02/18/21 12:45 02/18/21 14:48 Ceftriaxone 1 Gm Vial IVPUSH 02/18/21 12:46 Not Given ONETIME ONE Ceftriaxone Sodium 1 gm 02/18/21 14:45 02/18/21 14:48 Ceftriaxone 1 Gm Vial IVPUSH 02/18/21 14:46 1 gm ONETIME ONE Administration Non-Formulary Medication 100 mg 02/19/21 08:00 Ubidecarenone [Coq-10] PO DAILY PENDING SALE TO [facility] Ondansetron HCl 4 mg 02/18/21 12:18 02/18/21 12:29 Ondansetron 4 Mg/2 Ml Sdv IVPUSH 02/18/21 12:19 4 mg NOW STA Administration - Re-Assessments/Exams Free Text/Narrative Re-Assessment/Exam: 02/18/21 12:14 labs reviewed with the . will admit to observe if having any further syncopal episodes and apnea with them. will start on rocephin as he is coughing up thick galvin/brown mucus and are awaiting culture results will monitor the Troponin as the initial level was elevated. Departure - Departure Time of Disposition: 12:25 Disposition: Admitted As Inpatient 65 Clinical Impression: SOB (shortness of breath) Syncope Qualifiers: Syncope type: vasovagal syncope Qualified Code(s): R55 - Syncope and collapse - Discharge Information *PRESCRIPTION DRUG MONITORING PROGRAM REVIEWED*: Not Applicable *COPY OF PRESCRIPTION DRUG MONITORING REPORT IN PATIENT WILSON: Not Applicable Sepsis Event Note (ED) - Evaluation Sepsis Screening Result: No Definite Risk - Focused Exam Vital Signs: Vital Signs Temp Pulse Resp BP Pulse Ox 02/18/21 10:48 97.2 F 88 18 139/90 95 - Problem List & Annotations (1) SOB (shortness of breath) SNOMED Code(s): 061924582 Code(s): R06.02 - SHORTNESS OF BREATH Status: Acute Priority: High Current Visit: Yes (2) Syncope SNOMED Code(s): 093296776 Code(s): R55 - SYNCOPE AND COLLAPSE Status: Acute Priority: High Current Visit: Yes Qualifiers: Syncope type: vasovagal syncope Qualified Code(s): R55 - Syncope and collapse - Problem List Review Problem List Initiated/Reviewed/Updated: Yes - My Orders Last 24 Hours: My Active Orders 02/18/21 11:07 Chest 1V Frontal [CR] Stat 02/18/21 11:38 Head wo Cont [CT] Urgent 02/18/21 11:45 CULTURE SPUTUM + SMEAR [RM] Stat - Assessment/Plan Admission H&P: Please use this note as an admission H&P Last 24 Hours: My Active Orders 02/18/21 11:07 Chest 1V Frontal [CR] Stat 02/18/21 11:38 Head wo Cont [CT] Urgent 02/18/21 11:45 CULTURE SPUTUM + SMEAR [RM] Stat Plan: Will admit at this time and follow up with his Troponin in 3 hours.
[2021-02-18] MEDS: Ondansetron 4 MG/2 ML SDV IVPUSH STA (12:29)
[2021-02-18] MEDS ORDERED: Sodium Chloride 0.9% 10 ML Syringe FLUSH PRN (12:34)
[2021-02-18] MEDS: cefTRIAXone 1 GM Vial IVPUSH ONE ×2 (14:48)
[2021-02-18 15:50] VITALS: BP 104/68; PULSE 76
--- NOTE | 2021-02-18 17:04 | PCM.PN ---
- General Info Date of Service: 02/18/21 Admission Dx/Problem (Free Text): Pt was admitted from ER earlier today with syncopal episode and possible apnea with it. He had pace maker inserted in May by Dr. Wade in [place] and follows with Dr. Escobar. His follow up Troponin went up to over 500. I did contact [facility] and discussed pt with Dr. Torres library sales consultant compensation analyst and he asked for his PM to be evaluated and echo. We are not able to do either of these here. He will accept on transfer. Talked to Dr. Gamble, hospitalist and reviewed case with him and he is accepting MD and will transfer ALS with cardiac catheterization technician to [facility]. He has not had any further syncopal episodes while her and no chest pain. Functional Status: Reports: Pain Controlled - Review of Systems Cardiovascular: Denies: Chest Pain - Patient Data Vitals - Most Recent: Last Vital Signs Temp 97.2 F 02/18/21 15:49 Pulse 76 02/18/21 15:49 Resp 18 02/18/21 15:49 BP 104/68 02/18/21 15:49 Pulse Ox 94 L 02/18/21 15:49 Weight - Most Recent: 250 lb 9.6 oz Lab Results Last 24 Hours: Laboratory Results - last 24 hr 02/18/21 02/18/21 02/18/21 Range/Units 10:57 10:57 10:57 WBC 9.5 (4.0-11.0) 10^3/uL RBC 3.83 L (4.50-6.00) x10^6/uL Hgb 12.4 L (14.0-18.0) g/dL Hct 36.6 L (42.0-52.0) % MCV 95.6 (83.0-97.0) fL MCH 32.4 H (27.0-32.0) pg MCHC 33.9 (32.0-36.0) g/dL RDW Coeff of Li 13.3 (11.0-15.0) % Plt Count 115 L (150-400) 10^3/uL Immature Gran % (Auto) 0.3 (0.0-4.9) % Neut % (Auto) 77.8 H (41-71) % Lymph % (Auto) 13.3 L (24-44) % [place] % (Auto) 6.0 (0-10) % Eos % (Auto) 2.3 (0-6) % Baso % (Auto) 0.3 (0-1) % Neut # (Auto) 7.41 (1.80-8.00) x10^3/uL Lymph # (Auto) 1.27 (0.60-5.00) 10^3/uL [place] # (Auto) 0.57 (0.00-1.50) 10^3/uL Eos # (Auto) 0.22 (0.00-1.50) 10^3/uL Baso # (Auto) 0.03 (0.00-0.50) 10^3/uL Immature Gran # (Auto) 0.03 (0.00-0.49) 10^3/uL PT 10.8 (9.7-12.3) SEC INR 0.99 (0.92-1.18) APTT 22.1 L (23.2-32.3) SEC Sodium 138 (136-145) mEq/L Potassium 4.3 (3.5-5.0) mEq/L Chloride 99 (98-106) mEq/L Carbon Dioxide 27 (21-32) mmol/L BUN 20 H (7-18) mg/dL Creatinine 1.4 H (0.7-1.3) mg/dL Est Cr Clr Drug Dosing TNP Estimated GFR (MDRD) 49 L (>=60) mL/min Glucose 145 H (75-99) mg/dL Calcium 9.0 (8.4-10.1) mg/dL Magnesium 1.9 (1.8-2.4) mg/dL Total Bilirubin 0.6 (0.0-1.0) mg/dL AST 23 (15-37) U/L ALT 36 (12-78) U/L Alkaline Phosphatase 85 (46-116) U/L Lactate Dehydrogenase 224 H (100-190) U/L Creatine Kinase 49 (35-232) U/L Troponin I High Sens (<=76) pg/mL Total Protein 7.9 (6.4-8.2) g/dL Albumin 3.7 (3.4-5.0) g/dL Lipase 181 (73-393) U/L 02/18/21 02/18/21 Range/Units 11:45 14:08 WBC (4.0-11.0) 10^3/uL RBC (4.50-6.00) x10^6/uL Hgb (14.0-18.0) g/dL Hct (42.0-52.0) % MCV (83.0-97.0) fL MCH (27.0-32.0) pg MCHC (32.0-36.0) g/dL RDW Coeff of Li (11.0-15.0) % Plt Count (150-400) 10^3/uL Immature Gran % (Auto) (0.0-4.9) % Neut % (Auto) (41-71) % Lymph % (Auto) (24-44) % [place] % (Auto) (0-10) % Eos % (Auto) (0-6) % Baso % (Auto) (0-1) % Neut # (Auto) (1.80-8.00) x10^3/uL Lymph # (Auto) (0.60-5.00) 10^3/uL [place] # (Auto) (0.00-1.50) 10^3/uL Eos # (Auto) (0.00-1.50) 10^3/uL Baso # (Auto) (0.00-0.50) 10^3/uL Immature Gran # (Auto) (0.00-0.49) 10^3/uL PT (9.7-12.3) SEC INR (0.92-1.18) APTT (23.2-32.3) SEC Sodium (136-145) mEq/L Potassium (3.5-5.0) mEq/L Chloride (98-106) mEq/L Carbon Dioxide (21-32) mmol/L BUN (7-18) mg/dL Creatinine (0.7-1.3) mg/dL Est Cr Clr Drug Dosing Estimated GFR (MDRD) (>=60) mL/min Glucose (75-99) mg/dL Calcium (8.4-10.1) mg/dL Magnesium (1.8-2.4) mg/dL Total Bilirubin (0.0-1.0) mg/dL AST (15-37) U/L ALT (12-78) U/L Alkaline Phosphatase (46-116) U/L Lactate Dehydrogenase (100-190) U/L Creatine Kinase (35-232) U/L Troponin I High Sens 108.9 H* 571.7 H* (<=76) pg/mL Total Protein (6.4-8.2) g/dL Albumin (3.4-5.0) g/dL Lipase (73-393) U/L [place] Results Last 24 Hours: Microbiology 02/18/21 11:45 Gram Stain - Final Sputum - Expectorated Med Orders - Current: Current Medications Amitriptyline HCl (Amitriptyline 25 Mg Tab) 37.5 mg PO BEDTIME [facility] Amitriptyline HCl (Amitriptyline 25 Mg Tab) 25 mg PO QAM [facility] Aspirin (Aspirin 81 Mg Tab.Ec) 81 mg PO DAILY [facility] Ceftriaxone Sodium (Ceftriaxone 1 Gm Vial) 1 gm IVPUSH Q24H [facility] Clopidogrel Bisulfate (Clopidogrel 75 Mg Tab) 75 mg PO DAILY [facility] Enoxaparin Sodium (Enoxaparin 40 Mg/0.4 Ml Syringe) 40 mg SUBCUT Q24H [facility] Folic Acid (Folic Acid 1 Mg Tab) 0.5 mg PO DAILY [facility] Levothyroxine Sodium (Levothyroxine 112 Mcg Tab) 112 mcg PO ACBREAKFAST [facility] Lisinopril (Lisinopril 5 Mg Tab) 5 mg PO DAILY [facility] Magnesium Oxide (Magnesium Oxide 250 Mg Tab) 250 mg PO DAILY [facility] Meloxicam (Meloxicam 7.5 Mg Tab) 15 mg PO DAILY [facility] Metoprolol Tartrate (Metoprolol Tartrate 25 Mg Tab) 12.5 mg PO BID [facility] Pantoprazole Sodium (Pantoprazole 40 Mg Vial) 40 mg IVPUSH Q12H [facility] Simvastatin (Simvastatin 10 Mg Tab) 10 mg PO BEDTIME [facility] Sodium Chloride (Sodium Chloride 0.9% 10 Ml Syringe) 10 ml FLUSH ASDIRECTED PRN PRN Reason: Keep Vein Open Discontinued Medications Ceftriaxone Sodium (Ceftriaxone 1 Gm Vial) 1 gm IVPUSH ONETIME ONE Stop: 02/18/21 12:46 Last Admin: 02/18/21 14:48 Dose: Not Given Documented by: Ceftriaxone Sodium (Ceftriaxone 1 Gm Vial) 1 gm IVPUSH ONETIME ONE Stop: 02/18/21 14:46 Last Admin: 02/18/21 14:48 Dose: 1 gm Documented by: Non-Formulary Medication (Ubidecarenone [Coq-10]) 100 mg PO DAILY [facility] Ondansetron HCl (Ondansetron 4 Mg/2 Ml Sdv) 4 mg IVPUSH NOW STA Stop: 02/18/21 12:19 Last Admin: 02/18/21 12:29 Dose: 4 mg Documented by: - Exam Quality Assessment: Supplemental Oxygen General: Alert Lungs: Clear to Auscultation, Normal Respiratory Effort Cardiovascular: Regular Rate, Regular Rhythm Extremities: Pedal Edema (1+ bilaterally.) Skin: Warm, Dry, Intact Psy/Mental Status: Alert - Patient Data Lab Results Last 24 hrs: Laboratory Results - last 24 hr 02/18/21 02/18/21 02/18/21 Range/Units 10:57 10:57 10:57 WBC 9.5 (4.0-11.0) 10^3/uL RBC 3.83 L (4.50-6.00) x10^6/uL Hgb 12.4 L (14.0-18.0) g/dL Hct 36.6 L (42.0-52.0) % MCV 95.6 (83.0-97.0) fL MCH 32.4 H (27.0-32.0) pg MCHC 33.9 (32.0-36.0) g/dL RDW Coeff of Li 13.3 (11.0-15.0) % Plt Count 115 L (150-400) 10^3/uL Immature Gran % (Auto) 0.3 (0.0-4.9) % Neut % (Auto) 77.8 H (41-71) % Lymph % (Auto) 13.3 L (24-44) % [place] % (Auto) 6.0 (0-10) % Eos % (Auto) 2.3 (0-6) % Baso % (Auto) 0.3 (0-1) % Neut # (Auto) 7.41 (1.80-8.00) x10^3/uL Lymph # (Auto) 1.27 (0.60-5.00) 10^3/uL [place] # (Auto) 0.57 (0.00-1.50) 10^3/uL Eos # (Auto) 0.22 (0.00-1.50) 10^3/uL Baso # (Auto) 0.03 (0.00-0.50) 10^3/uL Immature Gran # (Auto) 0.03 (0.00-0.49) 10^3/uL PT 10.8 (9.7-12.3) SEC INR 0.99 (0.92-1.18) APTT 22.1 L (23.2-32.3) SEC Sodium 138 (136-145) mEq/L Potassium 4.3 (3.5-5.0) mEq/L Chloride 99 (98-106) mEq/L Carbon Dioxide 27 (21-32) mmol/L BUN 20 H (7-18) mg/dL Creatinine 1.4 H (0.7-1.3) mg/dL Est Cr Clr Drug Dosing TNP Estimated GFR (MDRD) 49 L (>=60) mL/min Glucose 145 H (75-99) mg/dL Calcium 9.0 (8.4-10.1) mg/dL Magnesium 1.9 (1.8-2.4) mg/dL Total Bilirubin 0.6 (0.0-1.0) mg/dL AST 23 (15-37) U/L ALT 36 (12-78) U/L Alkaline Phosphatase 85 (46-116) U/L Lactate Dehydrogenase 224 H (100-190) U/L Creatine Kinase 49 (35-232) U/L Troponin I High Sens (<=76) pg/mL Total Protein 7.9 (6.4-8.2) g/dL Albumin 3.7 (3.4-5.0) g/dL Lipase 181 (73-393) U/L 02/18/21 02/18/21 Range/Units 11:45 14:08 WBC (4.0-11.0) 10^3/uL RBC (4.50-6.00) x10^6/uL Hgb (14.0-18.0) g/dL Hct (42.0-52.0) % MCV (83.0-97.0) fL MCH (27.0-32.0) pg MCHC (32.0-36.0) g/dL RDW Coeff of Li (11.0-15.0) % Plt Count (150-400) 10^3/uL Immature Gran % (Auto) (0.0-4.9) % Neut % (Auto) (41-71) % Lymph % (Auto) (24-44) % [place] % (Auto) (0-10) % Eos % (Auto) (0-6) % Baso % (Auto) (0-1) % Neut # (Auto) (1.80-8.00) x10^3/uL Lymph # (Auto) (0.60-5.00) 10^3/uL [place] # (Auto) (0.00-1.50) 10^3/uL Eos # (Auto) (0.00-1.50) 10^3/uL Baso # (Auto) (0.00-0.50) 10^3/uL Immature Gran # (Auto) (0.00-0.49) 10^3/uL PT (9.7-12.3) SEC INR (0.92-1.18) APTT (23.2-32.3) SEC Sodium (136-145) mEq/L Potassium (3.5-5.0) mEq/L Chloride (98-106) mEq/L Carbon Dioxide (21-32) mmol/L BUN (7-18) mg/dL Creatinine (0.7-1.3) mg/dL Est Cr Clr Drug Dosing Estimated GFR (MDRD) (>=60) mL/min Glucose (75-99) mg/dL Calcium (8.4-10.1) mg/dL Magnesium (1.8-2.4) mg/dL Total Bilirubin (0.0-1.0) mg/dL AST (15-37) U/L ALT (12-78) U/L Alkaline Phosphatase (46-116) U/L Lactate Dehydrogenase (100-190) U/L Creatine Kinase (35-232) U/L Troponin I High Sens 108.9 H* 571.7 H* (<=76) pg/mL Total Protein (6.4-8.2) g/dL Albumin (3.4-5.0) g/dL Lipase (73-393) U/L Result Diagrams: 02/18/21 10:57 02/18/21 10:57 [place] Results Last 24 hrs: Microbiology 02/18/21 11:45 Gram Stain - Final Sputum - Expectorated Sepsis Event Note - Evaluation Sepsis Screening Result: No Definite Risk - Focused Exam Vital Signs: Vital Signs Temp Pulse Resp BP Pulse Ox 02/18/21 15:49 97.2 F 76 18 104/68 94 L 02/18/21 10:48 97.2 F 88 18 139/90 95 - Problem List & Annotations (1) SOB (shortness of breath) SNOMED Code(s): 371799841 Code(s): R06.02 - SHORTNESS OF BREATH Status: Acute Priority: High Current Visit: Yes (2) Syncope SNOMED Code(s): 609418506 Code(s): R55 - SYNCOPE AND COLLAPSE Status: Acute Priority: High Current Visit: Yes Qualifiers: Syncope type: vasovagal syncope Qualified Code(s): R55 - Syncope and collapse (3) Elevated troponin I level SNOMED Code(s): 550022873 Code(s): R77.8 - OTHER SPECIFIED ABNORMALITIES OF PLASMA PROTEINS Status: Acute Priority: High Current Visit: Yes - Problem List Review Problem List Initiated/Reviewed/Updated: Yes - My Orders Last 24 Hours: My Active Orders 02/18/21 11:07 Chest 1V Frontal [CR] Stat 02/18/21 11:38 Head wo Cont [CT] Urgent 02/18/21 11:45 CULTURE SPUTUM + SMEAR [RM] Stat 02/18/21 Lunch Regular Diet [DIET] 02/18/21 12:34 Patient Status [ADT] Routine Height and Weight [RC] 0600 Oxygen Therapy [RC] 2355 Up With Assistance [RC] .PRN Vital Signs [RC] 0000,0400,0800,1200,1600,2000 PT Evaluation and Treatment [CONS] Routine Sodium Chloride 0.9% [Saline Flush] 10 ml FLUSH ASDIRECTED PRN Saline Lock Insert [OM.PC] Routine Resuscitation Status Routine 02/18/21 12:35 Cardiac Monitoring [RC] 0800,2000 Intake and Output [RC] .PRN Pulse Oximetry [RC] PRN 02/18/21 20:00 Amitriptyline [Elavil] 37.5 mg PO BEDTIME Enoxaparin [Lovenox] 40 mg SUBCUT Q24H Metoprolol Tartrate [Lopressor] 12.5 mg PO BID Pantoprazole [ProTONIX IV] 40 mg IVPUSH Q12H Simvastatin [Zocor] 10 mg PO BEDTIME 02/19/21 05:11 BASIC METABOLIC PANEL,BMP [CHEM] AM CBC WITH AUTO DIFF [HEME] AM 02/19/21 07:00 Levothyroxine 112 mcg PO ACBREAKFAST 02/19/21 08:00 Amitriptyline [Elavil] 25 mg PO QAM Aspirin [Halfprin] 81 mg PO DAILY Clopidogrel [Plavix] 75 mg PO DAILY Folic Acid 0.5 mg PO DAILY Magnesium Oxide 250 mg PO DAILY Meloxicam [Mobic] 15 mg PO DAILY lisinopriL [Prinivil] 5 mg PO DAILY 02/19/21 12:00 cefTRIAXone [Rocephin] 1 gm IVPUSH Q24H - Assessment Assessment:: syncope elevated troponin - Plan Plan:: will transfer to Dr. Gamble at [facility].
[2021-02-18] MEDS ORDERED: Metoprolol Tartrate 25 MG Tab PO SCH (20:00)
[2021-02-18] MEDS ORDERED: Enoxaparin 40 MG/0.4 ML Syringe SUBCUT SCH (20:00)
[2021-02-18] MEDS ORDERED: Simvastatin 10 MG Tab PO SCH (20:00)
[2021-02-18] MEDS ORDERED: Pantoprazole 40 MG Vial IVPUSH SCH (20:00)
[2021-02-18] MEDS ORDERED: Amitriptyline 25 MG Tab PO SCH (20:00)
[2021-02-19] MEDS ORDERED: Levothyroxine 112 MCG Tab PO SCH (07:00)
[2021-02-19] MEDS ORDERED: Amitriptyline 25 MG Tab PO SCH (08:00)
[2021-02-19] MEDS ORDERED: Clopidogrel 75 MG Tab PO SCH (08:00)
[2021-02-19] MEDS ORDERED: Aspirin 81 MG Tab.EC PO SCH (08:00)
[2021-02-19] MEDS ORDERED: Lisinopril 5 MG Tab PO SCH (08:00)
[2021-02-19] MEDS ORDERED: Folic Acid 1 MG Tab PO SCH (08:00)
[2021-02-19] MEDS ORDERED: Meloxicam 7.5 MG Tab PO SCH (08:00)
[2021-02-19] MEDS ORDERED: cefTRIAXone 1 GM Vial IVPUSH SCH (12:00)
== END 2021-02-18 17:45 | DRG 312 ==
LOC: CC.ED 10:50 → CC.MS 12:25 → UNDOADMIN 12:25 → CC.MS 12:34
PROVIDERS: ADMIT Physician Assistant Medical; ATTEND Family Medicine
DX: R55 Syncope and collapse (principal); I69.354 Hemiplegia and hemiparesis following cerebral infarction affecting left non-dominant side; R77.8 Other specified abnormalities of plasma proteins; I10 Essential (primary) hypertension; N40.0 Benign prostatic hyperplasia without lower urinary tract symptoms; E03.9 Hypothyroidism, unspecified; R06.02 Shortness of breath; Z96.651 Presence of right artificial knee joint; Z88.8 Allergy status to other drugs, medicaments and biological substances; Z91.041 Radiographic dye allergy status; Z79.82 Long term (current) use of aspirin; Z79.890 Hormone replacement therapy; Z79.899 Other long term (current) drug therapy; Z98.49 Cataract extraction status, unspecified eye; Z95.0 Presence of cardiac pacemaker; Z86.73 Personal history of transient ischemic attack (TIA), and cerebral infarction without residual deficits; Z98.41 Cataract extraction status, right eye; Z98.42 Cataract extraction status, left eye; Z95.5 Presence of coronary angioplasty implant and graft; Z91.048 Other nonmedicinal substance allergy status; Z79.02 Long term (current) use of antithrombotics/antiplatelets
CPT/HCPCS: 36415; 70450; 71045; 80053; 82550; 83615; 83690; 83735; 84484; 85025; 85610; 85730; 87070; 87077; 87186; 87205; 93005; 93010; 96374; 96375; 99285-25; J0696; J2405

== ENCOUNTER 2021-02-24 12:41 | Inpatient (IN) | payer MEDICARE, BC ==
[2021-02-24] MEDS ORDERED: Polyethylene Glycol 3350 Powder 17 GM Packet PO PRN (16:49)
[2021-02-24] MEDS ORDERED: Ondansetron 4 MG Tab.DIS PO PRN (16:49)
[2021-02-24] MEDS ORDERED: Acetaminophen 325 MG Tab PO PRN (17:01)
[2021-02-24] MEDS: Metoprolol Tartrate 25 MG Tab PO SCH (19:21)
[2021-02-24] MEDS: Melatonin 3 MG Tab PO SCH (19:22)
[2021-02-24] MEDS: Simvastatin 10 MG Tab PO SCH (19:24)
[2021-02-24] MEDS: Zinc Sulfate 220 MG Cap PO SCH (19:24)
--- NOTE | 2021-02-24 20:06 | PCM.HP.2 ---
H&P History of Present Illness - General Date of Service: 02/24/21 Admit Problem/Dx: Admission Diagnosis/Problem Admission Diagnosis/Problem MS, Myocardial infarction Source of Information: Patient, Family, Old Records History Limitations: Reports: No Limitations - History of Present Illness Initial Comments - Free Text/Narative: Rich is a 75 year old male admitted swing bed for strengthening following a NSTEMI. Patient initially was evaluated here in our ER after a syncopal episode at home. Initial work up in the ER showed a troponin of 0.1, repeat had increased to 0.5. No EKG changes were noted. Cardiology was consulted and patient transferred for further work up at [facility]. Troponin was 0.6 there and was started on a heparin drip. Had no chest pain. WAs seen by neurology due to weakness. 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 Had stress test which was negative. TTE normal. No evidence of arrhythmia. Carotid US without significant stenosis. Due to weakness and history of CVA, tapered off amitriptyline and started on low dose Sertraline. Gait was unsteady, limited ability to get up from chair without assist. [place] need for further PT for strengthening in order to return home. Duration of Symptoms: Reports: Day(s): Location: Reports: Generalized Associated Symptoms: Reports: Shortness of Breath, Weakness. Denies: Confusion, Chest Pain, Loss of Appetite, Nausea/Vomiting - Related Data Allergies/Adverse Reactions: Allergies Allergy/AdvReac Type Severity Reaction Status Date / Time indomethacin [From Indocin] AdvReac Intermediate Lightheaded Verified 02/24/21 13:18 ness indomethacin sodium AdvReac Intermediate Lightheaded Verified 02/24/21 13:18 [From Indocin] ness dye Allergy Intermediate Itching Uncoded 02/24/21 13:18 Home Medications: Home Meds Simvastatin 10 mg PO BEDTIME 02/16/15 [History] Cholecalciferol (Vitamin D3) [Vitamin D3] 5,000 unit PO DAILY 08/21/15 [History] Levothyroxine Sodium [Tirosint] 112 mcg PO DAILY 08/21/15 [History] Ubidecarenone [Coq-10] 100 mg PO DAILY 08/21/15 [History] Clopidogrel [Plavix] 75 mg PO DAILY 12/28/17 [History] Lisinopril 5 mg PO DAILY 12/28/17 [History] Folic Acid 400 mcg PO DAILY 11/17/19 [History] Magnesium Oxide 250 mg PO DAILY 03/24/20 [History] Melatonin 15 mg PO BEDTIME 07/07/20 [History] Zinc 50 mg PO BEDTIME 07/07/20 [History] Metoprolol Tartrate [Lopressor] 12.5 mg PO BID 09/02/20 [History] Pantoprazole Sodium [Protonix] 40 mg PO DAILY 09/03/20 [History] Acetaminophen 650 mg PO DAILY PRN 02/24/21 [History] Ascorbate Calcium [Vitamin C] 1,000 mg PO DAILY 02/24/21 [History] Aspirin 81 mg PO DAILY 02/24/21 [History] Past Medical History HEENT History: Reports: Cataract Cardiovascular History: Reports: Hypertension, MS, Pacemaker Other Cardiovascular History: stent placement 10 years ago; history of Mobitz II block Genitourinary History: Reports: BPH Musculoskeletal History: Reports: Other (See Below) Other Musculoskeletal History: 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 Neurological History: Reports: CVA Other Neuro History: x2...October 11, 2015, 12/2019 Endocrine/Metabolic History: Reports: Hypothyroidism - Past Surgical History HEENT Surgical History: Reports: Cataract Surgery Other HEENT Surgeries/Procedures: bilateral cataract surgery Cardiovascular Surgical History: Reports: Carotid Endarterectomy, Coronary Artery Stent Other Cardiovascular Surgeries/Procedures: pae maker placed GI Surgical History: Reports: Hernia, Inguinal Musculoskeletal Surgical History: Reports: Carpal Tunnel, Knee Replacement Other Musculoskeletal Surgeries/Procedures:: Right knee replacemen [facility] [email or web address]. Social & Family History - Family History Family Medical History: No Pertinent Family History - Tobacco Use Tobacco Use Status *Q: Never Tobacco User - Caffeine Use Caffeine Use: Reports: Coffee - Living Situation & Occupation Living situation: Reports: , with Spouse Occupation: Employed H&P Review of Systems - Review of Systems: Review Of Systems: See Below General: Reports: Weakness, Fatigue. Denies: Fever, Chills, Malaise, Decreased Appetite HEENT: Denies: Ear Pain, Headaches, Rhinitis, Sore Throat Pulmonary: Reports: Shortness of Breath, Cough Cardiovascular: Reports: Edema. Denies: Chest Pain, Lightheadedness Gastrointestinal: Denies: Abdominal Pain, Nausea, Vomiting Genitourinary: Reports: No Symptoms Musculoskeletal: Reports: No Symptoms Skin: Reports: No Symptoms Neurological: Reports: Pre-Existing Deficit, Weakness, Gait Disturbance, Other (left side hemiparesis) Exam - Exam Exam: See Below - Vital Signs Vital Signs: Last Vital Signs Temp Pulse 65 02/24/21 19:21 Resp BP 141/78 H 02/24/21 19:21 Pulse Ox - Exam General: Alert, Oriented HEENT: Conjunctiva Clear, Mucosa Moist & [place] Neck: Supple Lungs: Clear to Auscultation, Normal Respiratory Effort Cardiovascular: Regular Rate, Regular Rhythm GI/Abdominal Exam: Normal Bowel Sounds, Soft, Non-Tender Extremities: Pedal Edema (1+) Skin: Warm, Dry Neurological: Abnormal Gait, Other (left side hemiparesis) Neuro Extensive - Mental Status: Alert, Oriented x3 Neuro Extensive - Motor, Sensory, Reflexes: Hemeplagia (L) Psychiatric: Alert Sepsis Event Note - Focused Exam Vital Signs: Vital Signs Pulse BP 02/24/21 19:21 65 141/78 H - Problem List (1) Weakness SNOMED Code(s): 50923545 ICD Code: R53.1 - WEAKNESS Status: Acute Priority: High Current Visit: Yes (2) Status post myocardial infarction SNOMED Code(s): 746974585 ICD Code: I25.2 - OLD MYOCARDIAL INFARCTION Status: Acute Priority: High Current Visit: Yes Problem List Initiated/Reviewed/Updated: Yes Orders Last 24hrs: Active Orders 24 hr Category Date Time Status Patient Status [ADT] Routine ADT 02/24/21 16:49 Active Antiembolic Devices [RC] 1000,2200 Care 02/24/21 16:39 Active Oxygen Therapy [RC] 2355 Care 02/24/21 16:49 Active Up With Assistance [RC] .PRN Care 02/24/21 16:49 Active Vital Signs [RC] 0800,2000 Care 02/24/21 16:49 Active PT Evaluation and Treatment [CONS] Routine Cons 02/24/21 16:49 Active 2 Gram Sodium Diet [DIET] Diet 02/24/21 Dinner Active Acetaminophen [TylenoL] Med 02/24/21 17:01 Active 650 mg PO DAILY PRN Acetaminophen [TylenoL] Med 02/24/21 16:49 Active 650 mg PO Q4H PRN Ascorbic Acid [Vitamin C] Med 02/25/21 08:00 Active 1,000 mg PO DAILY Aspirin Med 02/25/21 08:00 Active 81 mg PO DAILY Cholecalciferol (Vitamin D3) [Vitamin D3] Med 02/25/21 08:00 Active 125 mcg PO DAILY Clopidogrel [Plavix] Med 02/25/21 08:00 Active 75 mg PO DAILY Enoxaparin [Lovenox] Med 02/25/21 08:00 Active 40 mg SUBCUT Q24H Folic Acid Med 02/25/21 08:00 Active 0.5 mg PO DAILY Levothyroxine Med 02/25/21 08:00 Active 112 mcg PO DAILY Magnesium Oxide Med 02/25/21 08:00 Active 250 mg PO DAILY Melatonin Med 02/24/21 20:00 Active 15 mg PO BEDTIME Metoprolol Tartrate [Lopressor] Med 02/24/21 20:00 Active 12.5 mg PO BID Ondansetron [Zofran ODT] Med 02/24/21 16:49 Active 4 mg PO Q4H PRN Pantoprazole [ProTONIX] Med 02/25/21 08:00 Active 40 mg PO DAILY Simvastatin [Zocor] Med 02/24/21 20:00 Active 10 mg PO BEDTIME Ubidecarenone [Coq-10] Med 02/25/21 08:00 Pending 100 mg PO DAILY Zinc Sulfate [Zincate] Med 02/24/21 20:00 Active 220 mg PO BEDTIME lisinopriL [Prinivil] Med 02/25/21 08:00 Active 5 mg PO DAILY polyethylene glycoL 3350 [MiraLAX] Med 02/24/21 16:49 Active 17 gm PO DAILY PRN REBECCA Hose [Antiembolic Hose] [OM.PC] Routine Oth 02/24/21 16:38 Ordered Resuscitation Status Routine Resus Stat 02/24/21 17:39 Ordered Medication Orders Acetaminophen (Acetaminophen 325 Mg Tab) 650 mg PO Q4H PRN PRN Reason: Pain (Mild 1-3)/fever Acetaminophen (Acetaminophen 325 Mg Tab) 650 mg PO DAILY PRN PRN Reason: fever/pain Ascorbic Acid (Ascorbic Acid 500 Mg Tab) 1,000 mg PO DAILY [facility] Aspirin (Aspirin 81 Mg Tab.Chew) 81 mg PO DAILY [facility] Cholecalciferol (Cholecalciferol (Vitamin D3) 25 Mcg Tab) 125 mcg PO DAILY [facility] Clopidogrel Bisulfate (Clopidogrel 75 Mg Tab) 75 mg PO DAILY [facility] Enoxaparin Sodium (Enoxaparin 40 Mg/0.4 Ml Syringe) 40 mg SUBCUT Q24H [facility] Folic Acid (Folic Acid 1 Mg Tab) 0.5 mg PO DAILY [facility] Levothyroxine Sodium (Levothyroxine 112 Mcg Tab) 112 mcg PO DAILY [facility] Lisinopril (Lisinopril 10 Mg Tab) 5 mg PO DAILY [facility] Magnesium Oxide (Magnesium Oxide 250 Mg Tab) 250 mg PO DAILY [facility] Melatonin (Melatonin 3 Mg Tab) 15 mg PO BEDTIME [facility] Last Admin: 02/24/21 19:22 Dose: 15 mg Documented by: JUANITA Metoprolol Tartrate (Metoprolol Tartrate 25 Mg Tab) 12.5 mg PO BID [facility] Last Admin: 02/24/21 19:21 Dose: 12.5 mg Documented by: JUANITA Non-Formulary Medication (Ubidecarenone [Coq-10]) 100 mg PO DAILY [facility] Ondansetron HCl (Ondansetron 4 Mg Tab.Dis) 4 mg PO Q4H PRN PRN Reason: nausea, able to take PO Pantoprazole Sodium (Pantoprazole 40 Mg Tab.Cr) 40 mg PO DAILY [facility] Polyethylene Glycol (Polyethylene Glycol 3350 Powder 17 Gm Packet) 17 gm PO DAILY PRN PRN Reason: Constipation Simvastatin (Simvastatin 10 Mg Tab) 10 mg PO BEDTIME [facility] Last Admin: 02/24/21 19:24 Dose: 10 mg Documented by: JUANITA Zinc Sulfate (Zinc Sulfate 220 Mg Cap) 220 mg PO BEDTIME [facility] Last Admin: 02/24/21 19:24 Dose: 220 mg Documented by: JUANITA Assessment/Plan Comment:: Admit to swing bed for strengthening. PT consult. associate director career services for home services as needed - Mortality Measure Prognosis:: Good
[2021-02-25] MEDS: Clopidogrel 75 MG Tab PO SCH (07:23)
[2021-02-25] MEDS: Lisinopril 10 MG Tab PO SCH (07:23)
[2021-02-25] MEDS: Ascorbic Acid 500 MG Tab PO SCH (07:23)
[2021-02-25] MEDS: Folic Acid 1 MG Tab PO SCH (07:23)
[2021-02-25] MEDS: Cholecalciferol (Vitamin D3) 25 MCG Tab PO SCH (07:23)
[2021-02-25] MEDS: Metoprolol Tartrate 25 MG Tab PO SCH ×2 (07:24→20:05)
[2021-02-25] MEDS: Levothyroxine 112 MCG Tab PO SCH (07:24)
[2021-02-25] MEDS: Enoxaparin 40 MG/0.4 ML Syringe SUBCUT SCH (07:24)
[2021-02-25] MEDS: Aspirin 81 MG Tab.Chew PO SCH (07:24)
[2021-02-25] MEDS: Pantoprazole 40 MG Tab.CR PO SCH (07:24)
[2021-02-25] MEDS ORDERED: UBIDECARENONE 100 MG PO SCH (08:00)
[2021-02-25] MEDS: Melatonin 3 MG Tab PO SCH (20:06)
[2021-02-25] MEDS: Zinc Sulfate 220 MG Cap PO SCH (20:07)
[2021-02-25] MEDS: Simvastatin 10 MG Tab PO SCH (20:07)
[2021-02-25] MEDS: Acetaminophen 325 MG Tab PO PRN (20:09)
[2021-02-26] MEDS: Enoxaparin 40 MG/0.4 ML Syringe SUBCUT SCH (08:53)
[2021-02-26] MEDS: Metoprolol Tartrate 25 MG Tab PO SCH ×2 (08:54→19:44)
[2021-02-26] MEDS: Ascorbic Acid 500 MG Tab PO SCH (08:54)
[2021-02-26] MEDS: Clopidogrel 75 MG Tab PO SCH (08:54)
[2021-02-26] MEDS: Aspirin 81 MG Tab.Chew PO SCH (08:55)
[2021-02-26] MEDS: Lisinopril 10 MG Tab PO SCH (08:55)
[2021-02-26] MEDS: Pantoprazole 40 MG Tab.CR PO SCH (08:55)
[2021-02-26] MEDS: Levothyroxine 112 MCG Tab PO SCH (08:56)
[2021-02-26] MEDS: Folic Acid 1 MG Tab PO SCH (08:56)
[2021-02-26] MEDS: UBIDECARENONE 100 MG PO SCH (08:57)
[2021-02-26] MEDS: Cholecalciferol (Vitamin D3) 25 MCG Tab PO SCH (08:57)
[2021-02-26] MEDS: Zinc Sulfate 220 MG Cap PO SCH (19:44)
[2021-02-26] MEDS: Melatonin 3 MG Tab PO SCH (19:44)
[2021-02-26] MEDS: Simvastatin 10 MG Tab PO SCH (19:44)
[2021-02-27] MEDS: Ascorbic Acid 500 MG Tab PO SCH (08:01)
[2021-02-27] MEDS: Enoxaparin 40 MG/0.4 ML Syringe SUBCUT SCH (08:01)
[2021-02-27] MEDS: Cholecalciferol (Vitamin D3) 25 MCG Tab PO SCH (08:01)
[2021-02-27] MEDS: Lisinopril 10 MG Tab PO SCH (08:01)
[2021-02-27] MEDS: Clopidogrel 75 MG Tab PO SCH (08:01)
[2021-02-27] MEDS: Metoprolol Tartrate 25 MG Tab PO SCH ×2 (08:02→19:34)
[2021-02-27] MEDS: Levothyroxine 112 MCG Tab PO SCH (08:03)
[2021-02-27] MEDS: Aspirin 81 MG Tab.Chew PO SCH (08:03)
[2021-02-27] MEDS: Folic Acid 1 MG Tab PO SCH (08:03)
[2021-02-27] MEDS: UBIDECARENONE 100 MG PO SCH (08:03)
[2021-02-27] MEDS: Pantoprazole 40 MG Tab.CR PO SCH (08:03)
[2021-02-27] MEDS: Simvastatin 10 MG Tab PO SCH (19:34)
[2021-02-27] MEDS: Melatonin 3 MG Tab PO SCH (19:34)
[2021-02-27] MEDS: Zinc Sulfate 220 MG Cap PO SCH (19:34)
[2021-02-28] MEDS: Metoprolol Tartrate 25 MG Tab PO SCH ×2 (08:05→19:37)
[2021-02-28] MEDS: Ascorbic Acid 500 MG Tab PO SCH (08:05)
[2021-02-28] MEDS: Aspirin 81 MG Tab.Chew PO SCH (08:05)
[2021-02-28] MEDS: Cholecalciferol (Vitamin D3) 25 MCG Tab PO SCH (08:05)
[2021-02-28] MEDS: Clopidogrel 75 MG Tab PO SCH (08:07)
[2021-02-28] MEDS: Pantoprazole 40 MG Tab.CR PO SCH (08:07)
[2021-02-28] MEDS: Levothyroxine 112 MCG Tab PO SCH (08:07)
[2021-02-28] MEDS: Lisinopril 10 MG Tab PO SCH (08:08)
[2021-02-28] MEDS: UBIDECARENONE 100 MG PO SCH (08:08)
[2021-02-28] MEDS: Folic Acid 1 MG Tab PO SCH (08:08)
[2021-02-28] MEDS: Enoxaparin 40 MG/0.4 ML Syringe SUBCUT SCH (08:08)
[2021-02-28] MEDS: Acetaminophen 325 MG Tab PO PRN (19:36)
[2021-02-28] MEDS: Zinc Sulfate 220 MG Cap PO SCH (19:38)
[2021-02-28] MEDS: Docusate Sodium 100 MG Cap PO SCH (19:38)
[2021-02-28] MEDS: Simvastatin 10 MG Tab PO SCH (19:38)
[2021-02-28] MEDS: Melatonin 3 MG Tab PO SCH (19:57)
[2021-03-01] MEDS: Docusate Sodium 100 MG Cap PO SCH ×2 (07:28→19:51)
[2021-03-01] MEDS: Enoxaparin 40 MG/0.4 ML Syringe SUBCUT SCH (07:28)
[2021-03-01] MEDS: Lisinopril 10 MG Tab PO SCH (07:29)
[2021-03-01] MEDS: Ascorbic Acid 500 MG Tab PO SCH (07:29)
[2021-03-01] MEDS: Levothyroxine 112 MCG Tab PO SCH (07:30)
[2021-03-01] MEDS: Aspirin 81 MG Tab.Chew PO SCH (07:30)
[2021-03-01] MEDS: Folic Acid 1 MG Tab PO SCH (07:31)
[2021-03-01] MEDS: Clopidogrel 75 MG Tab PO SCH (07:31)
[2021-03-01] MEDS: Pantoprazole 40 MG Tab.CR PO SCH (07:32)
[2021-03-01] MEDS: Metoprolol Tartrate 25 MG Tab PO SCH ×3 (07:32→19:51)
[2021-03-01] MEDS: Cholecalciferol (Vitamin D3) 25 MCG Tab PO SCH (07:33)
[2021-03-01] MEDS: UBIDECARENONE 100 MG PO SCH (07:35)
[2021-03-01] MEDS: Melatonin 3 MG Tab PO SCH (19:50)
[2021-03-01] MEDS: Zinc Sulfate 220 MG Cap PO SCH (19:51)
[2021-03-01] MEDS: Simvastatin 10 MG Tab PO SCH (19:52)
[2021-03-02] MEDS: Lisinopril 10 MG Tab PO SCH (07:31)
[2021-03-02] MEDS: Cholecalciferol (Vitamin D3) 25 MCG Tab PO SCH (07:31)
[2021-03-02] MEDS: Levothyroxine 112 MCG Tab PO SCH (07:31)
[2021-03-02] MEDS: Docusate Sodium 100 MG Cap PO SCH ×2 (07:31→19:50)
[2021-03-02] MEDS: Ascorbic Acid 500 MG Tab PO SCH (07:31)
[2021-03-02] MEDS: Aspirin 81 MG Tab.Chew PO SCH (07:31)
[2021-03-02] MEDS: Metoprolol Tartrate 25 MG Tab PO SCH ×2 (07:32→19:52)
[2021-03-02] MEDS: Pantoprazole 40 MG Tab.CR PO SCH (07:32)
[2021-03-02] MEDS: Folic Acid 1 MG Tab PO SCH (07:32)
[2021-03-02] MEDS: Clopidogrel 75 MG Tab PO SCH (07:33)
[2021-03-02] MEDS: Enoxaparin 40 MG/0.4 ML Syringe SUBCUT SCH (07:33)
[2021-03-02] MEDS: UBIDECARENONE 100 MG PO SCH (09:16)
[2021-03-02] MEDS: Melatonin 3 MG Tab PO SCH (19:50)
[2021-03-02] MEDS: Simvastatin 10 MG Tab PO SCH (19:51)
[2021-03-02] MEDS: Zinc Sulfate 220 MG Cap PO SCH (19:51)
[2021-03-02] MEDS: Acetaminophen 325 MG Tab PO PRN (19:59)
[2021-03-03] MEDS: Aspirin 81 MG Tab.Chew PO SCH (07:30)
[2021-03-03] MEDS: Folic Acid 1 MG Tab PO SCH (07:30)
[2021-03-03] MEDS: Ascorbic Acid 500 MG Tab PO SCH (07:30)
[2021-03-03] MEDS: Levothyroxine 112 MCG Tab PO SCH (07:30)
[2021-03-03] MEDS: Metoprolol Tartrate 25 MG Tab PO SCH ×2 (07:30→20:19)
[2021-03-03] MEDS: Cholecalciferol (Vitamin D3) 25 MCG Tab PO SCH (07:30)
[2021-03-03] MEDS: Clopidogrel 75 MG Tab PO SCH (07:31)
[2021-03-03] MEDS: Docusate Sodium 100 MG Cap PO SCH ×2 (07:31→20:20)
[2021-03-03] MEDS: Pantoprazole 40 MG Tab.CR PO SCH (07:31)
[2021-03-03] MEDS: Lisinopril 10 MG Tab PO SCH (07:31)
[2021-03-03] MEDS: Enoxaparin 40 MG/0.4 ML Syringe SUBCUT SCH (07:32)
[2021-03-03] MEDS: UBIDECARENONE 100 MG PO SCH (07:32)
[2021-03-03] MEDS: Zinc Sulfate 220 MG Cap PO SCH (20:19)
[2021-03-03] MEDS: Melatonin 3 MG Tab PO SCH (20:19)
[2021-03-03] MEDS: Simvastatin 10 MG Tab PO SCH (20:20)
[2021-03-03] MEDS: Acetaminophen 325 MG Tab PO PRN (20:25)
[2021-03-04] MEDS: Metoprolol Tartrate 25 MG Tab PO SCH ×2 (07:18→19:50)
[2021-03-04] MEDS: Ascorbic Acid 500 MG Tab PO SCH (07:19)
[2021-03-04] MEDS: Lisinopril 10 MG Tab PO SCH (07:19)
[2021-03-04] MEDS: Docusate Sodium 100 MG Cap PO SCH ×2 (07:19→19:50)
[2021-03-04] MEDS: Pantoprazole 40 MG Tab.CR PO SCH (07:20)
[2021-03-04] MEDS: Levothyroxine 112 MCG Tab PO SCH (07:20)
[2021-03-04] MEDS: Cholecalciferol (Vitamin D3) 25 MCG Tab PO SCH (07:20)
[2021-03-04] MEDS: UBIDECARENONE 100 MG PO SCH (07:20)
[2021-03-04] MEDS: Clopidogrel 75 MG Tab PO SCH (07:20)
[2021-03-04] MEDS: Aspirin 81 MG Tab.Chew PO SCH (07:20)
[2021-03-04] MEDS: Enoxaparin 40 MG/0.4 ML Syringe SUBCUT SCH (07:22)
[2021-03-04] MEDS: Folic Acid 1 MG Tab PO SCH (07:55)
[2021-03-04] MEDS: Zinc Sulfate 220 MG Cap PO SCH (19:50)
[2021-03-04] MEDS: Acetaminophen 325 MG Tab PO PRN (19:50)
[2021-03-04] MEDS: Melatonin 3 MG Tab PO SCH (19:50)
[2021-03-04] MEDS: Simvastatin 10 MG Tab PO SCH (19:51)
[2021-03-05] MEDS: Metoprolol Tartrate 25 MG Tab PO SCH (08:17)
[2021-03-05] MEDS: Enoxaparin 40 MG/0.4 ML Syringe SUBCUT SCH (08:17)
[2021-03-05] MEDS: Cholecalciferol (Vitamin D3) 25 MCG Tab PO SCH (08:18)
[2021-03-05] MEDS: Aspirin 81 MG Tab.Chew PO SCH (08:19)
[2021-03-05] MEDS: Ascorbic Acid 500 MG Tab PO SCH (08:19)
[2021-03-05] MEDS: Lisinopril 10 MG Tab PO SCH (08:20)
[2021-03-05] MEDS: Levothyroxine 112 MCG Tab PO SCH (08:20)
[2021-03-05] MEDS: Docusate Sodium 100 MG Cap PO SCH (08:20)
[2021-03-05] MEDS: Pantoprazole 40 MG Tab.CR PO SCH (08:21)
[2021-03-05] MEDS: Clopidogrel 75 MG Tab PO SCH (08:21)
[2021-03-05] MEDS: Folic Acid 1 MG Tab PO SCH (08:21)
[2021-03-05 08:22] VITALS: BP 129/74; PULSE 64
--- NOTE | 2021-03-09 11:36 | DISCH ---
ADMISSION DIAGNOSES: 1. Status post acute myocardial infarction. 2. Hypothyroidism. 3. Hypertension. 4. Hyperlipidemia. 5. History of prior cerebrovascular accident. 6. Weakness. DISCHARGE DIAGNOSIS: 1. STATUS POST ACUTE MYOCARDIAL INFARCTION. 2. HYPOTHYROIDISM. 3. HYPERTENSION. 4. HYPERLIPIDEMIA. 5. HISTORY OF PRIOR CEREBROVASCULAR ACCIDENT. 6. WEAKNESS. HISTORY: The patient is a very pleasant elderly male who presented to our facility with an acute MS. He had an NSTEMI, was evaluated and worked up at [facility], and was treated appropriately. He came to us for followup because of his weakness and he was put in swing bed for strengthening. HOSPITAL COURSE: The patient did well while here. He worked with PT, has really regained most of his strength back, and is back to a premorbid state. He has been up and ambulating and eating a full diet. He has had no vital sign irregularities and is tolerating his medications without difficulty. He is ready for discharge. We are going to discharge him home with instructions for followup with Dr. Jason Segura at [facility] in [place] where the patient's primary practice is. His medications have not changed since admission. COMPLICATIONS: During his stay were none. CONSULTATIONS: Physical Therapy. DISPOSITION: Discharged home. DIPESH /[id number]
== END 2021-03-05 17:47 | disposition home or self-care (01) | DRG 948 ==
LOC: CC.MS 15:50 → UNDOADMIN 15:50 → CC.MS 16:49
PROVIDERS: ADMIT Family Medicine; ATTEND Family Medicine
DX: R53.81 Other malaise (principal); I69.354 Hemiplegia and hemiparesis following cerebral infarction affecting left non-dominant side; I10 Essential (primary) hypertension; N40.0 Benign prostatic hyperplasia without lower urinary tract symptoms; I25.2 Old myocardial infarction; E03.9 Hypothyroidism, unspecified; Z96.651 Presence of right artificial knee joint; Z88.1 Allergy status to other antibiotic agents; Z91.041 Radiographic dye allergy status; Z79.890 Hormone replacement therapy; Z79.899 Other long term (current) drug therapy; Z95.0 Presence of cardiac pacemaker; Z95.5 Presence of coronary angioplasty implant and graft; Z79.82 Long term (current) use of aspirin; Z98.41 Cataract extraction status, right eye; Z98.42 Cataract extraction status, left eye
CPT/HCPCS: 97110-GP; 97161-GP; 97530-GP; A9270-GY; J1650

== ENCOUNTER 2021-07-27 21:00 | Inpatient (IN) | payer MEDICARE, BC ==
[2021-07-27 21:32] LABS: CHLORIDE,CL 98 mEq/L (98-106); SODIUM,NA 136 mEq/L (136-145)
[2021-07-27 22:56] LABS: CORONAVIRUS COVID-19 NAA NEGATIVE (NEGATIVE)
[2021-07-27] MEDS ORDERED: Acetaminophen 325 MG Tab PO PRN (23:45)
[2021-07-28] MEDS: Sodium Chloride 0.9% 1,000 ML IV SCH ×2 (01:04→13:12)
[2021-07-28] MEDS: Pantoprazole 40 MG Tab.CR PO SCH (06:09)
[2021-07-28] MEDS: Levothyroxine 112 MCG Tab PO SCH (06:10)
[2021-07-28] MEDS ORDERED: OMEGA PO SCH (08:00)
[2021-07-28] MEDS ORDERED: Folic Acid 1 MG Tab PO SCH (08:00)
[2021-07-28] MEDS ORDERED: FISH OIL PO SCH (08:00)
[2021-07-28] MEDS ORDERED: EPA PO SCH (08:00)
[2021-07-28] MEDS ORDERED: [UNRECOGNIZED DRUG - OTHER] PO SCH (08:00)
[2021-07-28] MEDS ORDERED: DHA PO SCH (08:00)
[2021-07-28] MEDS ORDERED: Non-Formulary Medication 1 Each (Folic Acid [Folic Acid] 0.4 MG Tablet) PO SCH (08:00)
[2021-07-28] MEDS: Cholecalciferol (Vitamin D3) 25 MCG Tab PO SCH (08:35)
[2021-07-28] MEDS: Lisinopril 5 MG Tab PO SCH (08:35)
[2021-07-28] MEDS: Metoprolol Tartrate 25 MG Tab PO SCH ×2 (08:36→19:51)
[2021-07-28] MEDS: Ascorbic Acid 500 MG Tab PO SCH (08:36)
[2021-07-28] MEDS: Clopidogrel 75 MG Tab PO SCH (08:36)
[2021-07-28] MEDS: Aspirin 81 MG Tab.EC PO SCH (08:36)
[2021-07-28] MEDS: Meloxicam 7.5 MG Tab PO SCH (08:36)
[2021-07-28] MEDS: Folic Acid 1 MG Tab PO SCH (08:37)
[2021-07-28] MEDS: Amitriptyline 25 MG Tab PO SCH (08:37)
[2021-07-28] MEDS: Enoxaparin 40 MG/0.4 ML Syringe SUBCUT SCH (17:00)
[2021-07-28] MEDS: Melatonin 3 MG Tab PO SCH (19:51)
[2021-07-29] MEDS: Sodium Chloride 0.9% 1,000 ML IV SCH ×2 (02:55→16:44)
[2021-07-29] MEDS: Pantoprazole 40 MG Tab.CR PO SCH (06:37)
[2021-07-29] MEDS: Levothyroxine 112 MCG Tab PO SCH (06:37)
[2021-07-29] MEDS: Meloxicam 7.5 MG Tab PO SCH (08:17)
[2021-07-29] MEDS: Aspirin 81 MG Tab.EC PO SCH (08:17)
[2021-07-29] MEDS: Ascorbic Acid 500 MG Tab PO SCH (08:17)
[2021-07-29] MEDS: Cholecalciferol (Vitamin D3) 25 MCG Tab PO SCH (08:17)
[2021-07-29] MEDS: Lisinopril 5 MG Tab PO SCH (08:18)
[2021-07-29] MEDS: Amitriptyline 25 MG Tab PO SCH (08:18)
[2021-07-29] MEDS: Metoprolol Tartrate 25 MG Tab PO SCH ×2 (08:18→19:41)
[2021-07-29] MEDS: Folic Acid 1 MG Tab PO SCH (08:18)
[2021-07-29] MEDS: Clopidogrel 75 MG Tab PO SCH (08:20)
[2021-07-29] MEDS ORDERED: Iopamidol 755 Mg/ML 100 ML Bottle IVPUSH ONE ×2 (12:02→12:03)
[2021-07-29] MEDS: Enoxaparin 40 MG/0.4 ML Syringe SUBCUT SCH (16:02)
[2021-07-29] MEDS: Melatonin 3 MG Tab PO SCH (19:41)
[2021-07-30] MEDS: Levothyroxine 112 MCG Tab PO SCH (06:02)
[2021-07-30] MEDS: Pantoprazole 40 MG Tab.CR PO SCH (06:02)
[2021-07-30] MEDS: Sodium Chloride 0.9% 1,000 ML IV SCH (06:24)
[2021-07-30] MEDS: Meloxicam 7.5 MG Tab PO SCH (08:16)
[2021-07-30] MEDS: Cholecalciferol (Vitamin D3) 25 MCG Tab PO SCH (08:16)
[2021-07-30] MEDS: Ascorbic Acid 500 MG Tab PO SCH (08:16)
[2021-07-30] MEDS: Lisinopril 5 MG Tab PO SCH (08:17)
[2021-07-30] MEDS: Metoprolol Tartrate 25 MG Tab PO SCH (08:17)
[2021-07-30] MEDS: Amitriptyline 25 MG Tab PO SCH (08:21)
[2021-07-30] MEDS: Aspirin 81 MG Tab.EC PO SCH (08:21)
[2021-07-30] MEDS: Clopidogrel 75 MG Tab PO SCH (08:21)
[2021-07-30] MEDS: Folic Acid 1 MG Tab PO SCH (08:21)
[2021-07-30] MEDS ORDERED: Calcium Carbonate 500 MG Tab.Chew PO PRN (09:47)
[2021-07-30 12:53] VITALS: BP 160/85; PULSE 60
== END 2021-07-30 14:30 | disposition home or self-care (01) | DRG 948 ==
LOC: CC.ED 21:00 → CC.MS 22:30 → UNDOADMIN 22:45 → CC.MS 22:45 → CC.ED 23:00
PROVIDERS: ADMIT Nurse Practitioner Family; ATTEND Family Medicine
DX: I63.9 Cerebral infarction, unspecified (principal); R53.1 Weakness; R50.9 Fever, unspecified; R74.8 Abnormal levels of other serum enzymes; R79.89 Other specified abnormal findings of blood chemistry; I10 Essential (primary) hypertension; I25.2 Old myocardial infarction; K76.0 Fatty (change of) liver, not elsewhere classified; Z88.1 Allergy status to other antibiotic agents; Z95.5 Presence of coronary angioplasty implant and graft; Z95.0 Presence of cardiac pacemaker; N40.0 Benign prostatic hyperplasia without lower urinary tract symptoms; I69.354 Hemiplegia and hemiparesis following cerebral infarction affecting left non-dominant side; E03.9 Hypothyroidism, unspecified; Z88.8 Allergy status to other drugs, medicaments and biological substances; Z98.41 Cataract extraction status, right eye; Z98.42 Cataract extraction status, left eye; Z91.041 Radiographic dye allergy status; Z79.02 Long term (current) use of antithrombotics/antiplatelets; Z79.82 Long term (current) use of aspirin; Z79.890 Hormone replacement therapy; Z79.899 Other long term (current) drug therapy; Z20.822 Contact with and (suspected) exposure to COVID-19; R29.712 NIHSS score 12
CPT/HCPCS: 0240U; 36415; 70450; 71045; 74174; 76705; 80053; 80074; 80307; 81003; 83690; 84484; 85025; 86140; 93005; 97110-GP; 97161-GP; 97530-GP; 99285-25; A9270-GY; J1650; J7030; Q9967

== ENCOUNTER 2021-08-26 18:02 | Observation (INO) | payer MEDICARE, BC ==
[2021-08-26 18:41] LABS: CHLORIDE,CL 98 mEq/L (98-106); SODIUM,NA 136 mEq/L (136-145)
[2021-08-26] MEDS ORDERED: Ondansetron 4 MG Tab.DIS PO PRN (19:11)
[2021-08-26] MEDS ORDERED: Acetaminophen 325 MG Tab PO PRN ×3 (19:11→20:24)
[2021-08-27] MEDS ORDERED: Aspirin 81 MG Tab.Chew PO SCH (08:00)
[2021-08-27] MEDS: Melatonin 3 MG Tab PO SCH ×2 (11:27→20:10)
[2021-08-27] MEDS: Tamsulosin 0.4 MG Cap.ER **PTOM PO SCH (11:30)
[2021-08-27] MEDS: Clopidogrel 75 MG Tab **PTOM PO SCH (11:30)
[2021-08-27] MEDS: PANTOPRAZOLE SODIUM 20 MG PO SCH (11:31)
[2021-08-27] MEDS: LEVOTHYROXINE 112 MCG PO SCH (11:31)
[2021-08-27] MEDS: MELOXICAM 15 MG PO SCH (11:31)
[2021-08-27] MEDS: AMITRIPTYLINE 25 MG PO SCH (11:39)
[2021-08-27] MEDS ORDERED: Enoxaparin 40 MG/0.4 ML Syringe SUBCUT SCH ×2 (18:00→20:00)
[2021-08-27] MEDS ORDERED: AMITRIPTYLINE 25 MG PO SCH (20:00)
[2021-08-28] MEDS: LEVOTHYROXINE 112 MCG PO SCH (06:53)
[2021-08-28] MEDS: PANTOPRAZOLE SODIUM 20 MG PO SCH (06:53)
[2021-08-28] MEDS: Clopidogrel 75 MG Tab **PTOM PO SCH (08:19)
[2021-08-28] MEDS: Tamsulosin 0.4 MG Cap.ER **PTOM PO SCH (08:19)
[2021-08-28] MEDS: MELOXICAM 15 MG PO SCH (08:20)
[2021-08-28] MEDS: AMITRIPTYLINE 25 MG PO SCH (08:20)
[2021-08-28 12:28] VITALS: BP 122/65; PULSE 69
[2021-08-28] MEDS ORDERED: Aspirin 81 MG Tab.EC PO SCH (20:00)
== END 2021-08-28 13:04 | disposition home or self-care (01) ==
LOC: CC.ED 18:02 → CC.MS 18:59 → CC.ED 18:59 → UNDOADMOB 19:00 → CC.MS 19:00
PROVIDERS: ADMIT Nurse Practitioner Family; ATTEND Family Medicine
DX: I69.354 Hemiplegia and hemiparesis following cerebral infarction affecting left non-dominant side (principal); M48.56XS Collapsed vertebra, not elsewhere classified, lumbar region, sequela of fracture; I10 Essential (primary) hypertension; N40.0 Benign prostatic hyperplasia without lower urinary tract symptoms; I25.2 Old myocardial infarction; E03.9 Hypothyroidism, unspecified; Z95.5 Presence of coronary angioplasty implant and graft; Z95.0 Presence of cardiac pacemaker; Z88.6 Allergy status to analgesic agent; Z91.041 Radiographic dye allergy status; Z79.02 Long term (current) use of antithrombotics/antiplatelets; Z79.890 Hormone replacement therapy; Z79.82 Long term (current) use of aspirin
CPT/HCPCS: 36415; 80053; 80307; 81003; 84484; 85025; 86140; 93005; 96372; 97161-GP; 99285-25; A9270-GY; G0378; J1650

== ENCOUNTER 2021-08-30 13:31 | Inpatient (IN) | payer BC, MEDICARE | END 2021-09-03 10:21 | DRG 951 | LOC: CC.MS 13:31 | PROVIDERS: ADMIT Family Medicine; ATTEND Family Medicine | DX: Z75.5 Holiday relief care (principal) ==

== ENCOUNTER 2022-01-22 11:16 | Emergency (ER) | payer MEDICARE, BC ==
[2022-01-22 11:19] VITALS: BP 129/83; PULSE 80
[2022-01-22] MEDS ORDERED: Potassium Chloride Riders 40 MEQ in Premix Bag 1 BAG IV ONE (13:03)
[2022-01-22] MEDS ORDERED: Sodium Chloride 0.9% 1,000 ML IV SCH (13:15)
[2022-01-22] MEDS ORDERED: Potassium Chloride 10 MEQ Tab.ER PO SCH (18:15)
== END 2022-01-22 19:20 | disposition home or self-care (01) ==
LOC: CC.ED 11:16
DX: R19.7 Diarrhea, unspecified (principal); E87.6 Hypokalemia; N40.0 Benign prostatic hyperplasia without lower urinary tract symptoms; I10 Essential (primary) hypertension; I25.2 Old myocardial infarction; E03.9 Hypothyroidism, unspecified; Z91.041 Radiographic dye allergy status; Z79.899 Other long term (current) drug therapy; Z79.82 Long term (current) use of aspirin; Z79.01 Long term (current) use of anticoagulants; Z95.0 Presence of cardiac pacemaker; Z86.73 Personal history of transient ischemic attack (TIA), and cerebral infarction without residual deficits; Z20.822 Contact with and (suspected) exposure to COVID-19
CPT/HCPCS: 36415; 80053; 81003; 83735; 84132; 85025; 86140; 96365; 96366; 99284; A9270; J3480; J7030; U0002

== ENCOUNTER 2022-02-14 19:58 | Emergency (ER) | payer MEDICARE, BC ==
[~2022-02-14 19:58] MED LIST: Sodium Chloride 0.9% 1,000 ML ONE
[2022-02-14] MEDS ORDERED: Sodium Chloride 0.9% 1,000 ML IV ONE ×4 (20:02→21:25)
[2022-02-14 20:45] LABS: PTT,PARTIAL THROMBOPLSTIN TIME 23.4 SEC (23.2-32.3)
[2022-02-14 20:48] LABS: CHLORIDE,CL 94 mEq/L (98-106); SODIUM,NA 136 mEq/L (136-145)
[2022-02-14 20:58] LABS: ESTIMATED GFR 26 mL/min (>=60)
[2022-02-14] MEDS ORDERED: VANCOmycin 1 GM/200 ML 1 GM in Premix Bag 1 BAG IV STA (21:43)
[2022-02-14] MEDS ORDERED: Meropenem 1 GM SDV IVPUSH ONE (21:43)
[2022-02-14] MEDS ORDERED: Dexamethasone 4 MG/ML SDV IVPUSH ONE (21:50)
[2022-02-14] MEDS ORDERED: Lactated Ringers 1,000 ML IV ONE (21:59)
[2022-02-14 23:51] VITALS: BP 73/48; PULSE 68
== END 2022-02-14 23:37 ==
LOC: CC.ED 19:58
DX: A41.9 Sepsis, unspecified organism (principal); N17.9 Acute kidney failure, unspecified; I95.9 Hypotension, unspecified; I10 Essential (primary) hypertension; I25.2 Old myocardial infarction; Z88.8 Allergy status to other drugs, medicaments and biological substances; Z91.041 Radiographic dye allergy status; Z79.899 Other long term (current) drug therapy; Z79.82 Long term (current) use of aspirin; Z79.01 Long term (current) use of anticoagulants; Z86.73 Personal history of transient ischemic attack (TIA), and cerebral infarction without residual deficits; Z20.822 Contact with and (suspected) exposure to COVID-19
CPT/HCPCS: 36415; 70450; 71045; 71250; 74176; 80053; 81001; 83605; 84484; 85025; 85610; 85730; 86140; 87040; 87086; 93005; 96361; 96365; 96375; 99284; 99285-25; J1100; J2185; J3370; J7030; J7120; U0002